=== PATIENT | male | born 1945 | race Caucasian/White ===

== ENCOUNTER → 2024-09-20 | Outpatient (CLI) | payer MEDICARE, OTHER, SELFPAY ==
[2024-09-20 14:32] LABS: Basophils # (Auto) 0.1 Thou/mm3 (0.0-0.2); Basophils % (Auto) 1 % (0-2.5); Eosinophils # (Auto) 0.7 Thou/mm3 (0.0-0.5); Eosinophils % (Auto) 7 % (0-10); Hematocrit 41.3 % (41.0-53.0); Hemoglobin 13.9 g/dL (13.5-16.0); Immature Granulocytes % (Auto) 3 % (0-0); Immature Granulocytes Auto 0.25 Thou/mm3 (0.00-0.00); Lymphocytes # (Auto) 1.4 Thou/mm3 (1.0-4.8); Lymphocytes % (Auto) 15 % (10-50); Mean Corpuscular HGB Conc 33.7 g/dl (31.0-37.0); Mean Corpuscular Hemoglobin 31.7 pg (25.0-35.0); Mean Corpuscular Volume 94 fL (80-100); Monocytes # (Auto) 1.6 Thou/mm3 (0.0-0.8); Monocytes % (Auto) 17 % (0-12); Neutrophils # (Auto) 5.5 Thou/mm3 (1.8-7.7); Neutrophils % (Auto) 58 % (37-80); Nucleated Red Blood Cell % 0 /100 WBC (0); Platelet Count 139 Thou/mm3 (140-440); Red Blood Count 4.39 Miln/mm3 (4.50-5.90); White Blood Count 9.5 Thou/mm3 (3.8-10.6)
[2024-09-20 14:40] LABS: B-Type Natriuretic Peptide 450 pg/mL (0-100)
[2024-09-20 15:09] LABS: Alanine Aminotransferase < 7 U/L (10-49); Albumin, Serum 4.1 gm/dL (3.4-4.8); Alkaline Phosphatase 78 U/L (46-116); Anion Gap 9 (7-16); Aspartate Amino Transferase 13 U/L (0-34); BUN/Creatinine Ratio 14 Ratio (12-20); Blood Urea Nitrogen 14 mg/dL (9-23); Calcium 9.2 mg/dL (8.3-10.6); Calcium (Corrected) 9.2 mg/dL (8.5-10.1); Carbon Dioxide 30.9 mMol/L (20.0-31.0); Chloride 104 mMol/L (98-107); Globulin 2.1 gm/dL (2.3-3.5); Glucose 127 mg/dL (74-106); Osmolality,Calculated 289 (275-295); Potassium 4.5 mMol/L (3.4-5.1); Sodium 144 mMol/L (136-145); Total Protein 6.2 gm/dL (5.7-8.2); eGFR > 60 See Note
[2024-09-26 19:48] LABS: PSA, Free 0.79 ng/mL; PSA, Total 2.3 ng/mL (< OR = 4.0)
== END | disposition home or self-care (01) ==
PROVIDERS: PCP Physician Assistant; Referring Provider Physician Assistant; Visit Provider Physician Assistant
DX: I10 Essential (primary) hypertension (principal); N40.0 Benign prostatic hyperplasia without lower urinary tract symptoms
CPT/HCPCS: 36415; 80053; 83880; 84153; 84154; 85025

== ENCOUNTER 2024-12-04 11:44 | Inpatient (IN) | payer MEDICARE, OTHER, SELFPAY ==
[2024-12-04] VITALS (16 sets, daily range): BP systolic 144–192; BP diastolic 94–138; PULSE 87–110; RESP 16–27; TEMP 36.4–36.5; O2SAT 95–100; BMI 36.9
--- NOTE | 2024-12-04 12:04 | XR_ITS ---
Examination: AP chest single view Technique one AP portable upright chest single view Exam date and time: December 04, 2024 1349 hours Comparison March 01, 2024 INDICATIONS: Chest pain shortness of breath beginning 2 days ago. FINDINGS: Suspicious for mild heart failure Mild enlargement cardiac contour Prominent vascular congestion with early septal edema at the lung bases Moderate osteopenia IMPRESSION: Mild heart failure pattern, early pneumonia at the lung bases not excluded, clinical correlation advised
--- NOTE | 2024-12-04 12:04 | EKG_ITS ---
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1945 Requested By: Campbell Motley Order Number: [id number] Reading MD: Campbell Motley Measurements Intervals [place] Rate: 84 P: RI: QRS: -69 QRSD: 132 T: 71 QT: 371 QTc: 441 Interpretive Statements ATRIAL FIBRILLATION LEFT AXIS DEVIATION [QRS AXIS < -30] INTRAVENTRICULAR CONDUCTION DELAY [130+ ms QRS DURATION] POSSIBLE ANTERIOR MYOCARDIAL INFARCTION , OF INDETERMINATE AGE [30 ms Q WAVE IN V3/V4, OR R < 0.2 mV IN V4] Compared to ECG 03/01/2024 15:56:42 Intraventricular conduction delay now present Myocardial infarct finding now present Ventricular premature complex(es) no longer present Aberrant conduction of supraventricular beat(s) no longer present Left bundle-branch block no longer present /store/S0/[id number]
--- NOTE | 2024-12-04 12:05 | PD.EDSOB ---
ED SOB =RME/HPI General Chief Complaint: Shortness of Breath/Dyspnea Stated Complaint: SOB Time Seen by Provider: 12/04/24 11:57 Arrival date/time: 12/04/24 11:44 RME / HPI RME / HPI Narrative: 79-year-old male patient with significant history of COPD, hypertension, was brought in by EMS for evaluation regarding shortness of breath. Patient has been having flulike symptoms for the last 5 days, today patient noticed worsening shortness of breath, and not feeling well. When the EMS arrived patient was already on oxygen placed by fire department. Was satting in the low 90s. Patient denies any fever denies any chest pain denies any other complaints patient told me that he runs out of his 2 inhalers today. Related Data Home Medications ?Medication ?Instructions ?Recorded ?Confirmed amlodipine 5 mg-benazepril 10 mg 10 mg PO QDAY 05/19/19 12/04/24 capsule metoprolol tartrate 100 mg tablet 100 mg PO BID 05/19/19 12/04/24 lisinopril 20 mg tablet 20 mg PO QDAY 03/01/24 12/04/24 budesonide 160 mcg-glycopyr 9 2 inh inhalation BID 12/04/24 12/04/24 mcg-formot 4.8 mcg/actuation HFA inhaler (Breztri Aerosphere) Previous Rx's ?Medication ?Instructions ?Recorded prednisone 50 mg tablet 50 mg PO QDAY #5 tabs 03/01/24 Allergies Allergy/AdvReac Type Severity Reaction Status Date / Time No Known Allergies Allergy Verified 03/01/24 16:00 Course Quality Measures none Orders Category Date Time Status COVID-19 Screening Questionnaire NOW Care 12/04/24 14:22 Active Decision to Admit X1 Care 12/04/24 14:21 Active EKG (ED ONLY) *Do not use* NOW Care 12/04/24 12:04 Completed EKG (ED Only) Stat Exams 12/04/24 12:04 Draft US gall bladder Stat Exams 12/04/24 13:09 Ordered XR chest 1V Stat Exams 12/04/24 12:04 Completed ABG [Arterial Blood Gas] Stat Lab 12/04/24 13:57 Completed B-Type Natriuretic Peptide Stat Lab 12/04/24 12:18 Completed Bilirubin,Direct Stat Lab 12/04/24 12:18 Completed C-Reactive Protein Stat Lab 12/04/24 12:18 Completed CBC Stat Lab 12/04/24 12:18 Completed Comprehensive Metabolic Panel Stat Lab 12/04/24 12:18 Completed Lactate (Lactic Acid) Stat Lab 12/04/24 12:18 Completed Partial Thromboplastin Time Stat Lab 12/04/24 12:18 Completed Procalcitonin Stat Lab 12/04/24 12:18 Completed Prothrombin Time with INR Stat Lab 12/04/24 12:18 Completed Troponin I Stat Lab 12/04/24 12:18 Completed VBG [Venous Blood Gas] Stat Lab 12/04/24 12:18 Completed ALBUTEROL RT 0.5ml [Proventil Rt 0.5ml] Med 12/04/24 13:19 Discontinued 2.5 mg INH X1 ONE ALBUTEROL RT 0.5ml [Proventil Rt 0.5ml] Med 12/04/24 13:22 Discontinued 5 mg INH X1 ONE Albuterol/Ipratr Rt Viridiana [Duoneb Rt Viridiana] Med 12/04/24 12:04 Discontinued 3 ml INH X1 ONE Azithromycin Inj [Zithromax Inj] 500 mg Med 12/04/24 14:14 Discontinued Sodium Chloride 0.9% 250 ml [Ns] 250 ml IV X1 Dexamethasone Inj [Decadron Inj] Med 12/04/24 12:04 Discontinued 10 mg IV X1 ONE Furosemide Inj [Lasix Inj] Med 12/04/24 13:37 Discontinued 40 mg IVP X1 ONE Labetalol IV [Trandate IV] Med 12/04/24 12:05 Discontinued 10 mg IVP X1 ONE MethylPREDNISolone.* [SoluMEDROL Inj] Med 12/04/24 13:34 Discontinued 125 mg IVP X1 ONE Sodium Chloride Rt Viridiana 0.9% [NS Rt Viridiana 0.9%] Med 12/04/24 13:19 Active 3 ml INH PRN PRN Sodium Chloride Rt Viridiana 0.9% [NS Rt Viridiana 0.9%] Med 12/04/24 13:22 Active 3 ml INH PRN PRN Terbutaline Sulf Inj [Brethine Inj] Med 12/04/24 13:33 Discontinued 0.25 mg SC X1 ONE cefTRIAXone/D5w 1gm IV premix [Rocephin/D5w 1gm IV Med 12/04/24 14:13 Discontinued premix] 1 gm in 50 ml IV X1 hydrALAZINE INJ [Apresoline Inj] Med 12/04/24 14:06 Discontinued 10 mg IV X1 ONE Vital Signs Vital signs: Vital Signs Temperature 97.5 F 12/04/24 12:02 Pulse Rate 92 12/04/24 12:02 Respiratory Rate 20 12/04/24 12:02 Blood Pressure 192/128 H 12/04/24 12:02 Pulse Oximetry (%) 99 12/04/24 12:02 Oxygen Delivery Method Nasal Cannula 12/04/24 12:02 Oxygen Flow Rate 6 12/04/24 12:02 Shortness of Breath / Dyspnea MDM Narrative MDM Narrative:: 79-year-old male patient with significant history of COPD, hypertension, was brought in by EMS for evaluation regarding shortness of breath. Patient has been having flulike symptoms for the last 5 days, today patient noticed worsening shortness of breath, and not feeling well. When the EMS arrived patient was already on oxygen placed by fire department. Was satting in the low 90s. Patient denies any fever denies any chest pain denies any other complaints patient told me that he runs out of his 2 inhalers today. Patient significant leukocytosis 21.7. ABG came back with PCO2 of 54, PO2 187. Total bili of 1.5 C-reactive protein 1 BNP of 1464 chest x-ray showed Mild heart failure pattern, early pneumonia at the lung bases not excluded, clinical correlation advised Patient was placed on BiPAP since patient is becoming restless, and complaining of cannot breathe. Currently patient is on a BiPAP and satting 95% Patient data External records reviewed:: None Clinical information provided by:: patient and law enforcement Social determinants that could affect healthcare access:: none Patient has the following chronic illnesses:: none How is presenting disease/condition affected by chronic disease/condition?: uneffected by Evaluation data The following diagnostics were reviewed and interpreted by me:: lab results, radiology exam(s) and EKG tracing(s) Lab and/or radiology exams considered but not ordered:: None Interpretation Summary: EKG as interpreted by me showed atrial fibrillation, ventricular rate of 84 bpm, no ST segment elevation depression noted. Medications / Prescriptions Medications or Prescriptions considered but not ordered:: None Medication administrations:: Medication Administration History Acetaminophen (Acetaminophen 325 Mg Tablet) 650 mg PO Q6H PRN PRN Reason: Fever >100.4 or pain 1-3 Stop: 01/03/25 15:02 Albuterol/Ipratropium (Albuterol/Ipratropium (Duoneb) Rt Viridiana 3 Ml Nebu) 3 ml INH Q2HR PRN PRN Reason: SHORTNESS OF BREATH OR WHEEZE Stop: 01/03/25 15:08 Amlodipine Besylate (Amlodipine Besylate 5 Mg Tablet) 5 mg PO QDAY YESSI Stop: 01/04/25 08:59 Docusate Sodium (Docusate Sod 100 Mg Capsule) 100 mg PO QDAY PRN; Protocol PRN Reason: CONSTIPATION Stop: 01/03/25 15:02 Enoxaparin Sodium (Enoxaparin Sod Inj 40 Mg/0.4 Ml Syringe) 40 mg SC QDAY YESSI Stop: 12/19/24 08:59 Furosemide (Furosemide Inj 10 Mg/Ml 4ml Vial) 40 mg IVP QDAY YESSI Stop: 01/04/25 08:59 Ceftriaxone Sodium 2 gm/ (Sodium Chloride) 50 mls @ 100 mls/hr IV Q24H YESSI Stop: 12/12/24 15:59 Ceftriaxone Sodium/Dextrose (Rocephin/D5w 1gm Iv Premix) 1 gm in 50 mls @ 100 mls/hr IV NOW ONE Stop: 12/04/24 16:14 Lisinopril (Lisinopril 20 Mg Tablet) 10 mg PO QDAY YESSI Stop: 01/04/25 08:59 Metoprolol Tartrate (Metoprolol Tartrate 25 Mg Tablet) 100 mg PO BID YESSI Stop: 01/03/25 20:59 Ondansetron HCl (Ondansetron Inj 2 Mg/Ml Inj 2 Ml) 4 mg IV Q6H PRN; Protocol PRN Reason: NAUSEA OR VOMITING Stop: 01/03/25 15:02 Sennosides (Senna Tablet) 1 tab PO QDAY PRN; Protocol PRN Reason: constipation Stop: 01/03/25 15:02 Sodium Chloride (Sodium Chloride Rt Viridiana 0.9% 3 Ml Nebu) 3 ml INH PRN PRN PRN Reason: SOLN Stop: 01/03/25 13:18 Last Admin: 12/04/24 13:24 Dose: 3 ml Documented By: JANICE Sodium Chloride (Sodium Chloride Rt Viridiana 0.9% 3 Ml Nebu) 3 ml INH PRN PRN PRN Reason: SOLN Stop: 01/03/25 13:21 Discontinued Medications Albuterol (Albuterol Rt 2.5 Mg/0.5 Ml Nebu) 2.5 mg INH X1 ONE Stop: 12/04/24 13:20 Last Admin: 12/04/24 13:24 Dose: 2.5 mg Documented By: JANICE Albuterol (Albuterol Rt 2.5 Mg/0.5 Ml Nebu) 5 mg INH X1 ONE Stop: 12/04/24 13:23 Last Admin: 12/04/24 13:25 Dose: 5 mg Documented By: JANICE Albuterol/Ipratropium (Albuterol/Ipratropium (Duoneb) Rt Viridiana 3 Ml Nebu) 3 ml INH X1 ONE Stop: 12/04/24 12:05 Last Admin: 12/04/24 13:13 Dose: 3 ml Documented By: JANICE Dexamethasone Sodium Phosphate (Dexamethasone Sod Phos Inj 10 Mg/Ml Vial) 10 mg IV X1 ONE Stop: 12/04/24 12:05 Last Admin: 12/04/24 13:15 Dose: 10 mg Documented By: ROSITA Furosemide (Furosemide Inj 10 Mg/Ml 4ml Vial) 40 mg IVP X1 ONE Stop: 12/04/24 13:38 Last Admin: 12/04/24 14:02 Dose: 40 mg Documented By: GM Hydralazine HCl (Hydralazine Inj 20 Mg/Ml Vial) 10 mg IV X1 ONE Stop: 12/04/24 14:07 Last Admin: 12/04/24 14:51 Dose: 10 mg Documented By: COOKIE Ceftriaxone Sodium/Dextrose (Rocephin/D5w 1gm Iv Premix) 1 gm in 50 mls @ 100 mls/hr IV X1 ONE Stop: 12/04/24 14:42 Last Admin: 12/04/24 14:56 Dose: 100 mls/hr Documented By: COOKIE Azithromycin 500 mg/ Sodium (Chloride) 250 mls @ 250 mls/hr IV X1 ONE Stop: 12/04/24 15:13 Labetalol HCl (Labetalol Inj 5 Mg/Ml Vial 20 Ml) 10 mg IVP X1 ONE Stop: 12/04/24 12:06 Last Admin: 12/04/24 13:16 Dose: 10 mg Documented By: ROSITA Methylprednisolone Sodium Succinate (Methylprednisolone Sod Succ 62.5 Mg/Ml 2ml Vial) 125 mg IVP X1 ONE Stop: 12/04/24 13:35 Last Admin: 12/04/24 14:04 Dose: 125 mg Documented By: Non-Formulary Medication (Amlodipine-Benazepril) 10 mg PO QDAY YESSI Stop: 01/04/25 08:59 Terbutaline Sulfate (Terbutaline Sulf Inj 1 Mg/Ml Vial) 0.25 mg SC X1 ONE Stop: 12/04/24 13:34 Last Admin: 12/04/24 14:05 Dose: 0.25 mg Documented By: Solu-Medrol, terbutaline, DuoNeb breathing treatment, hour-long albuterol also. Patient was also given ceftriaxone IV and Zithromax IV Consultations Consultation(s) initiated? (list below): No Diagnosis Shortness of Breath Differential Diagnosis: acute exacerbation of chronic obstructive airways disease and community acquired pneumonia Most likely diagnosis given after review of the tests above:: Acute exacerbation of COPD, pneumonia Admission Indicated Admission indicated?: not indicated Admission Request Was there a request for admission?: Yes Admission Attestation Admission request attestation: Discussed case with [Dr. Goodman] from Hospitalist service regarding admission. Discussed patients ED course, exam findings, labs, and radiology results. The Hospitalist [agrees] to accept the patient for admission. Disposition Plan Disposition Plan: Admit Discharge Plan Plan Patient Disposition: Admit Acute Care w/in Hospital Disposition Comment: Stable Problem List Clinical Impression: Acute exacerbation of chronic obstructive airways disease, Pneumonia
[2024-12-04 12:22] LABS: Base Excess, Venous 9 (-3-3); Lactate (Lactic Acid) 1.7 mMol/L (0.4-2.0); O2 Saturation, Venous 98 % (96-97); PCO2, Venous 26 mmHg (36-56); PO2, Venous 79 mmHg (15-58); pH, Venous 7.65 (7.33-7.66)
[2024-12-04 12:30] LABS: Basophils # (Auto) 0.1 Thou/mm3 (0.0-0.2); Basophils % (Auto) 1 % (0-2.5); Eosinophils # (Auto) 0.3 Thou/mm3 (0.0-0.5); Eosinophils % (Auto) 1 % (0-10); Hematocrit 47.9 % (41.0-53.0); Hemoglobin 15.6 g/dL (13.5-16.0); Immature Granulocytes % (Auto) 4 % (0-0); Immature Granulocytes Auto 0.78 Thou/mm3 (0.00-0.00); Lymphocytes # (Auto) 2.2 Thou/mm3 (1.0-4.8); Lymphocytes % (Auto) 10 % (10-50); Mean Corpuscular HGB Conc 32.6 g/dl (31.0-37.0); Mean Corpuscular Volume 98 fL (80-100); Monocytes # (Auto) 2.5 Thou/mm3 (0.0-0.8); Monocytes % (Auto) 11 % (0-12); Neutrophils # (Auto) 15.9 Thou/mm3 (1.8-7.7); Neutrophils % (Auto) 73 % (37-80); Nucleated Red Blood Cell % 0 /100 WBC (0); Platelet Count 223 Thou/mm3 (140-440); RDW Standard Deviation 53.8 fL (35.1-43.9); Red Blood Count 4.88 Miln/mm3 (4.50-5.90); White Blood Count 21.7 Thou/mm3 (3.8-10.6)
[2024-12-04 12:38] LABS: INR 1.2 (0.9-1.3); Partial Thromboplastin Time 28.4 Seconds (22.0-36.0); Prothrombin Time 12.9 Seconds (9.0-12.2)
[2024-12-04 12:51] LABS: Alanine Aminotransferase 41 U/L (10-49); Albumin, Serum 4.1 gm/dL (3.4-4.8); Albumin/Globulin Ratio 1.8 (1.2-2.2); Alkaline Phosphatase 57 U/L (46-116); Anion Gap 9 (7-16); Aspartate Amino Transferase 30 U/L (0-34); BUN/Creatinine Ratio 19 Ratio (12-20); Bilirubin,Total 1.5 mg/dL (0.3-1.2); Blood Urea Nitrogen 19 mg/dL (9-23); Calcium 9.1 mg/dL (8.3-10.6); Calcium (Corrected) 9.1 mg/dL (8.5-10.1); Carbon Dioxide 30.8 mMol/L (20.0-31.0); Chloride 103 mMol/L (98-107); Globulin 2.3 gm/dL (2.3-3.5); Glucose 122 mg/dL (74-106); Osmolality,Calculated 288 (275-295); Potassium 3.6 mMol/L (3.4-5.1); Sodium 143 mMol/L (136-145); Total Protein 6.4 gm/dL (5.7-8.2); Troponin I 0.031 ng/mL (0.0-0.045); eGFR > 60 See Note
--- NOTE | 2024-12-04 13:09 | XR_ITS ---
Examination: Abdomen sonogram, Limited Date and time of exam: December 04, 2024 1627 hours INDICATIONS: Elevated liver function tests on laboratory examination today Technique: Real-time foley scale transabdominal sonographic images of the upper abdomen obtained. Findings: Normal gallbladder No common bile duct 0.36 cm Pancreas obscured by bowel gas Liver 19.4 cm fatty infiltration no focal liver lesions Normal hepatopedal portal venous flow Date and IVC IMPRESSION: Normal gallbladder Moderate hepatomegaly fatty liver
[2024-12-04] MEDS: ALBUTEROL/IPRATROPIUM (Duoneb) RT SOL 3 ML NEBU INH (13:13)
[2024-12-04] MEDS: DEXAMETHASONE SOD PHOS INJ 10 MG/ML VIAL IV (13:15)
[2024-12-04] MEDS: LABETALOL INJ 5 MG/ML VIAL 20 ML 10 MG IVP (13:16)
[2024-12-04] MEDS: ALBUTEROL RT 2.5 MG/0.5 ML NEBU INH (13:24)
[2024-12-04] MEDS: SODIUM CHLORIDE RT SOL 0.9% 3 ML NEBU INH (13:24)
[2024-12-04] MEDS: ALBUTEROL RT 2.5 MG/0.5 ML NEBU 5 MG INH (13:25)
[2024-12-04 13:32] LABS: B-Type Natriuretic Peptide 1464 pg/mL (0-100)
[2024-12-04 13:47] LABS: Bilirubin,Direct 0.3 mg/dL (0.0-0.3)
[2024-12-04] MEDS: FUROSEMIDE INJ 10 MG/ML 4ML VIAL 40 MG IVP ×2 (14:02→21:00)
[2024-12-04 14:03] LABS: Base Excess 5 (-3-3); HCO3 32 mEq/L (20-26); Inspired Oxygen, FIO2 50 %; O2 Saturation 100 % (91-98); PCO2 54 mmHg (32.0-48.0); PO2 187 mmHg (83-108); pH, Arterial 7.38 (7.35-7.45)
[2024-12-04 14:04] LABS: Allen Test Not Performed; Puncture Site Right Radial
[2024-12-04] MEDS: MethylPREDNISolone SOD SUCC 62.5 MG/ML 2ML VIAL 125 MG IVP (14:04)
[2024-12-04] MEDS: TERBUTALINE SULF INJ 1 MG/ML VIAL 0.25 MG SC (14:05)
[2024-12-04] MEDS: hydrALAZINE INJ 20 MG/ML VIAL 10 MG IV (14:51)
[2024-12-04] MEDS: cefTRIAXone/D5w 1gm IV premix 1 GM/50 ML BAG IV (14:56)
--- NOTE | 2024-12-04 15:18 | PD.RESHP ---
Documentation for date of: 12/04/24 HPI History of Present Illness Chief complaint: Shortness of breath History of present illness: 79/o M with PMHx significant for COPD, hypertension, A-fib presents with chief complaint of progressive shortness of breath. Patient states for the past 3 days he has been having worsening shortness of breath at home. He also complains of orthopnea, dyspnea on minimal exertion. Patient denies cough or sputum production. Patient noted to have significant edema on exam. Patient states he received cardiac workup by Dr. Dc 1 month ago including nuclear perfusion stress test and echocardiogram, which did not reveal any pathology. Denies fevers, chills, chest pain, palpitations, nausea, vomiting. ED COURSE: Labs significant for: WBC 21.7, BNP 1464, above patient's baseline. ABG showing pH 7.3, pCO2 54. Pro-Shawn negative. Imaging significant for: Chest x-ray showing vascular congestion, possible early pneumonia. Patient received 10 mg dexamethasone, 125 mg methylprednisolone, albuterol, Lasix, terbutaline sulfate, and labetalol in the ED. Patient placed on BiPAP in the ED due to respiratory distress. PMH: Hypertension, COPD, A-fib PSH: Tendon repair of right arm, rotator cuff repair of left arm SH: Denies alcohol, tobacco, illicit drug use. Allergies:?NKDA Medications: Amlodipine?benazepril, Breztri, lisinopril, metoprolol tartrate, Lasix Review of Systems Review of Systems Systems Reviewed: All systems reviewed, normal except as documented Past Medical History Past Medical History Comments PMH COMMENT: PMH: Hypertension, COPD, A-fib PSH: Tendon repair of right arm, rotator cuff repair of left arm SH: Denies alcohol, tobacco, illicit drug use. Allergies:?NKDA Medications: Amlodipine?benazepril, Breztri, lisinopril, metoprolol tartrate, Lasix Exam Vital Signs Temp Pulse Resp BP Pulse Ox O2 Del Method O2 Flow Rate 97.5 F 99 23 H 192/114 H 100 Nasal Cannula 4 12/04/24 12:02 12/04/24 14:51 12/04/24 13:15 12/04/24 14:51 12/04/24 13:15 12/04/24 12:02 12/04/24 13:15 FiO2 60 12/04/24 13:15 Narrative Exam PE: Gen: Well-developed and well-nourished. Obese. HEENT: NCAT, PERRLA, EOMI, MMM, anicteric conjunctivae. CVS: normal S1 and S2. RRR. No M/R/G. Resp: Minimal expiratory wheezing. Poor lung sounds due to body habitus. Abd: soft, non-tender, non-distended. MSK: Good ROM in BUE & BLE. No rash. Patient reports frequent falls, diffuse bruising. 2+ pitting edema up to sacrum. Neuro: CN II-XII grossly intact. Strength 5/5 in BUE & BLE. Alert and oriented x3. Psych: appropriate mood and affect. Results: Labs 12/05/24 05:05 12/05/24 05:05 Labs: Short CBC 12/04/24 Range/Units 12:18 WBC 21.7 H (3.8-10.6) Thou/mm3 Hgb 15.6 (13.5-16.0) g/dL Hct 47.9 (41.0-53.0) % Plt Count 223 (140-440) Thou/mm3 BMP 12/04/24 12:18 Sodium 143 Potassium 3.6 Chloride 103 Carbon Dioxide 30.8 BUN 19 Creatinine 1.0 Glucose 122 H Calcium 9.1 Cardiac Enzymes 12/04/24 Range/Units 12:18 Troponin I 0.031 (0.0-0.045) ng/mL Liver Function 12/04/24 Range/Units 12:18 Total Bilirubin 1.5 H (0.3-1.2) mg/dL Direct Bilirubin 0.3 (0.0-0.3) mg/dL AST 30 (0-34) U/L ALT 41 (10-49) U/L Alkaline Phosphatase 57 (46-116) U/L Albumin 4.1 (3.4-4.8) gm/dL ABG Interpretation ABG results: 12/04/24 12/04/24 12:18 13:57 ABG pH 7.38 ABG pCO2 54 H ABG pO2 187 H ABG HCO3 32 H ABG O2 Saturation 100 H ABG Base Excess 5 H VBG pH 7.65 VBG pCO2 26 L VBG pO2 79 H VBG Base Excess 9 H Quality Measures Quality Measures VTE prophylaxis Advance care planning discussed with:: patient and spouse Medications Home Medications and Allergies Home Medications ?Medication ?Instructions ?Recorded ?Confirmed ?Type amlodipine 5 mg-benazepril 10 mg 10 mg PO QDAY 05/19/19 12/04/24 History capsule metoprolol tartrate 100 mg tablet 100 mg PO BID 05/19/19 12/04/24 History lisinopril 20 mg tablet 20 mg PO QDAY 03/01/24 12/04/24 History budesonide 160 mcg-glycopyr 9 2 inh inhalation BID 12/04/24 12/04/24 History mcg-formot 4.8 mcg/actuation HFA inhaler ([employer] Profilesztri [employer]oop[employer]) Allergies Allergy/AdvReac Type Severity Reaction Status Date / Time No Known Allergies Allergy Verified 03/01/24 16:00 Visit Medications Acetaminophen (Acetaminophen 325 Mg Tablet) 650 mg PO Q6H PRN PRN Reason: Fever >100.4 or pain 1-3 Stop: 01/03/25 15:02 Albuterol/Ipratropium (Albuterol/Ipratropium (Duoneb) Rt Viridiana 3 Ml Nebu) 3 ml INH Q2HR PRN PRN Reason: SHORTNESS OF BREATH OR WHEEZE Stop: 01/03/25 15:08 Docusate Sodium (Docusate Sod 100 Mg Capsule) 100 mg PO QDAY PRN; Protocol PRN Reason: CONSTIPATION Stop: 01/03/25 15:02 Enoxaparin Sodium (Enoxaparin Sod Inj 40 Mg/0.4 Ml Syringe) 40 mg SC QDAY [facility] Stop: 12/19/24 08:59 Furosemide (Furosemide Inj 10 Mg/Ml 4ml Vial) 40 mg IVP QDAY [facility] Stop: 01/04/25 08:59 Ceftriaxone Sodium 2 gm/ (Sodium Chloride) 50 mls @ 100 mls/hr IV QDAY [facility] Stop: 12/11/24 15:13 Metoprolol Tartrate (Metoprolol Tartrate 25 Mg Tablet) 100 mg PO BID [facility] Stop: 01/03/25 20:59 Non-Formulary Medication (Amlodipine-Benazepril) 10 mg PO QDAY [facility] Stop: 01/04/25 08:59 Ondansetron HCl (Ondansetron Inj 2 Mg/Ml Inj 2 Ml) 4 mg IV Q6H PRN; Protocol PRN Reason: NAUSEA OR VOMITING Stop: 01/03/25 15:02 Sennosides (Senna Tablet) 1 tab PO QDAY PRN; Protocol PRN Reason: constipation Stop: 01/03/25 15:02 Sodium Chloride (Sodium Chloride Rt Viridiana 0.9% 3 Ml Nebu) 3 ml INH PRN PRN PRN Reason: SOLN Stop: 01/03/25 13:18 Last Admin: 12/04/24 13:24 Dose: 3 ml Sodium Chloride (Sodium Chloride Rt Viridiana 0.9% 3 Ml Nebu) 3 ml INH PRN PRN PRN Reason: SOLN Stop: 01/03/25 13:21 Discontinued Medications Albuterol (Albuterol Rt 2.5 Mg/0.5 Ml Nebu) 2.5 mg INH X1 ONE Stop: 12/04/24 13:20 Last Admin: 12/04/24 13:24 Dose: 2.5 mg Albuterol (Albuterol Rt 2.5 Mg/0.5 Ml Nebu) 5 mg INH X1 ONE Stop: 12/04/24 13:23 Last Admin: 12/04/24 13:25 Dose: 5 mg Albuterol/Ipratropium (Albuterol/Ipratropium (Duoneb) Rt Viridiana 3 Ml Nebu) 3 ml INH X1 ONE Stop: 12/04/24 12:05 Last Admin: 12/04/24 13:13 Dose: 3 ml Dexamethasone Sodium Phosphate (Dexamethasone Sod Phos Inj 10 Mg/Ml Vial) 10 mg IV X1 ONE Stop: 12/04/24 12:05 Last Admin: 12/04/24 13:15 Dose: 10 mg Furosemide (Furosemide Inj 10 Mg/Ml 4ml Vial) 40 mg IVP X1 ONE Stop: 12/04/24 13:38 Last Admin: 12/04/24 14:02 Dose: 40 mg Hydralazine HCl (Hydralazine Inj 20 Mg/Ml Vial) 10 mg IV X1 ONE Stop: 12/04/24 14:07 Last Admin: 12/04/24 14:51 Dose: 10 mg Ceftriaxone Sodium/Dextrose (Rocephin/D5w 1gm Iv Premix) 1 gm in 50 mls @ 100 mls/hr IV X1 ONE Stop: 12/04/24 14:42 Last Admin: 12/04/24 14:56 Dose: 100 mls/hr Azithromycin 500 mg/ Sodium (Chloride) 250 mls @ 250 mls/hr IV X1 ONE Stop: 12/04/24 15:13 Labetalol HCl (Labetalol Inj 5 Mg/Ml Vial 20 Ml) 10 mg IVP X1 ONE Stop: 12/04/24 12:06 Last Admin: 12/04/24 13:16 Dose: 10 mg Methylprednisolone Sodium Succinate (Methylprednisolone Sod Succ 62.5 Mg/Ml 2ml Vial) 125 mg IVP X1 ONE Stop: 12/04/24 13:35 Last Admin: 12/04/24 14:04 Dose: 125 mg Terbutaline Sulfate (Terbutaline Sulf Inj 1 Mg/Ml Vial) 0.25 mg SC X1 ONE Stop: 12/04/24 13:34 Last Admin: 12/04/24 14:05 Dose: 0.25 mg Assessment & Plan Plan 79/o M with PMHx significant for COPD, hypertension, A-fib presents with chief complaint of progressive shortness of breath, admitted for congestive heart failure. #New onset CHF Patient has no known history of CHF. Patient reports echo and stress test with immigration specialist Dr. Dc a month ago, both of which were normal. However exam, patient has significant pitting edema up to sacrum. Patient complains of orthopnea, dyspnea on minimal exertion, and PND. Requires 3 pillows at night to sleep. Patient has elevated BNP 1464. Chest x-ray showing vascular congestion. - Cardiology consulted, appreciate recommendations - Lasix 40 mg IV twice daily - Strict ins and outs with Turner cath, daily weights, fluid restrict 1800 cc - Turner cath #COPD #Early pneumonia Patient has history of COPD. Chest x-ray showed signs of vascular congestion along with possible early pneumonia. Patient denies increased cough or sputum production. Patient not use oxygen at home. Minimal expiratory wheezes on exam. Pro-Shawn negative, patient had elevated WBC 21.7. ABG did not show significant CO2 retention, pH normal. - DuoNebs as needed - BiPAP as needed - Ceftriaxone 2 g IV daily (started 12/04) - Azithromycin 250 mg IV daily (started 12/04) #HTN #A-fib Patient history as stated. Patient's not using rate or rhythm control medication, using Eliquis. - Resume home Eliquis, amlodipine?benazepril - Consider resuming other meds as appropriate DVT prophylaxis: Eliquis GI prophylaxis: None Diet: Cardiac, positional changes CC Lines: PIV, Turner cath Code status: Full code Plan of care discussed with attending Dr. Mcmillan. Godfrey Cohn MD PGY?1 Attending Provider Attestation/Addendum Barbi Nelson DO, attest that I was physically present for the faustin portions of the service and evaluated the patient with the resident and I reviewed and discussed the case with the resident and agree with the resident's findings and plans of care as documented above Patient is a 79-year-old male with past medical history of COPD, hypertension, A-fib on chronic anticoagulation, peripheral neuropathy chronic back pain on Percocet every 6 hours at home who was brought to the ED due to worsening shortness of breath. is at bedside. She states that the patient has been progressively worse for the past 3 weeks with shortness of breath. He endorses having orthopnea and dyspnea on minimal exertion. Patient usually walks with a walker, but has been unable to do his daily activities for the past 3 days. Patient is noted to have some 1+ pitting bilateral lower extremity edema. He follows Dr. Decker outpatient and underwent a nuclear stress test last month which he reports being normal. Patient denies any recent sick contacts, fevers, chills, chest pain, palpitations, nausea, vomiting. It appears that patient wears a CPAP at night. He is noted to have a leukocytosis of 21.7 with elevated BNP of 1464. ABG shows a mild CO2 retention. However, mental status remains intact. Patient reports some generalized weakness. Chest x-ray on presentation shows mild heart failure pattern and suspicious for early pneumonia at the lung bases. Suspect acute chf exacerbation resulting in acute hypoxic respiratory failure. Patient remains on BiPap at this time. Will start on Lasix 40mg IV BID and consult cardiology for further recommendations. Will cover empirically for community acquired pneumonia
[2024-12-04] MEDS: AZITHROMYCIN INJ 250 MG in SODIUM CHLORIDE 0.9% 250 ML 250 ML IV (17:30)
[2024-12-04 18:31] LABS: Influenza A Ag Negative; Influenza B Ag Negative; Respiratory Syncytial Virus Ag Negative (Negative)
--- NOTE | 2024-12-04 19:10 | PC.NURSE ---
Patient refused to take blood pressure notified
--- NOTE | 2024-12-04 19:40 | PC.NURSE ---
per resident, its okay to give pt water. pt received 340 ml at bedside.
--- NOTE | 2024-12-04 19:44 | EKG_ITS ---
[facility] Test Date: 2024-12-04 Pat Name: SUSANA SCOTT Department: Room: [facility] Gender: Male Employee Communications Coordinator: : 1945 Requested By: Tala Tubbs Order Number: [id number] Reading MD: Tala Tubbs Measurements Intervals [place] Rate: 96 P: NC: QRS: -62 QRSD: 125 T: 56 QT: 387 QTc: 490 Interpretive Statements ATRIAL FIBRILLATION LEFT AXIS DEVIATION [QRS AXIS < -30] LEFT BUNDLE BRANCH BLOCK [120+ ms QRS DURATION, 80+ ms Q/S IN V1/V2, 85+ ms R IN I/aVL/V5/V6] Compared to ECG 12/04/2024 12:19:12 Left bundle-branch block now present Intraventricular conduction delay no longer present Myocardial infarct finding no longer present /store/S0/[id number]
--- NOTE | 2024-12-04 19:46 | EKG_ITS ---
[facility] Test Date: 2024-12-04 Pat Name: SUSANA SCOTT Department: Room: 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
[2024-12-04] MEDS: oxyCODONE/APAP 5/325 TABLET 2 TAB PO (20:33)
[2024-12-04] MEDS: APIXABAN 2.5 MG TABLET 5 MG PO (21:00)
[2024-12-04] MEDS: METOPROLOL TARTRATE 25 MG TABLET 100 MG PO (21:00)
--- NOTE | 2024-12-04 22:04 | PC.NURSE ---
Called Dr. Paredes about patients blood pressure 172/113 and 192/[address] prn meds.
[2024-12-04] MEDS: oxyCODONE/APAP 5/325 TABLET 1 TAB PO (23:51)
[2024-12-05] VITALS (20 sets, daily range): BP systolic 106–174; BP diastolic 79–110; PULSE 82–107; RESP 16–26; TEMP 35.9–36.3; O2SAT 96–99; BMI 38.2
--- NOTE | 2024-12-05 04:44 | PC.NURSE ---
DR. HOOPER MADE AWARE OF OF BP 159/106. PRN HYDRALAZINE FOR SBP >180. NO PARAMETERS FOR DBP. SCHEDULED BP MEDS RELAYED TO MD. NO NEW ORDERS GIVEN. STATES IF BP IS UNCONTROLLED AFTER MORNING MEDS, WILL NEED TO ADJUST DOSES.
[2024-12-05] MEDS: oxyCODONE/APAP 5/325 TABLET 1 TAB PO (06:01)
[2024-12-05 06:05] LABS: Basophils # (Auto) 0.1 Thou/mm3 (0.0-0.2); Basophils % (Auto) 1 % (0-2.5); Eosinophils % (Auto) 0 % (0-10); Hematocrit 48.8 % (41.0-53.0); Hemoglobin 16.3 g/dL (13.5-16.0); Immature Granulocytes % (Auto) 4 % (0-0); Immature Granulocytes Auto 0.45 Thou/mm3 (0.00-0.00); Lymphocytes % (Auto) 8 % (10-50); Mean Corpuscular HGB Conc 33.4 g/dl (31.0-37.0); Mean Corpuscular Hemoglobin 32.4 pg (25.0-35.0); Mean Corpuscular Volume 97 fL (80-100); Monocytes # (Auto) 0.9 Thou/mm3 (0.0-0.8); Monocytes % (Auto) 7 % (0-12); Neutrophils # (Auto) 10.2 Thou/mm3 (1.8-7.7); Neutrophils % (Auto) 81 % (37-80); Nucleated Red Blood Cell % 0 /100 WBC (0); Platelet Count 186 Thou/mm3 (140-440); RDW Standard Deviation 52.6 fL (35.1-43.9); Red Blood Count 5.03 Miln/mm3 (4.50-5.90); White Blood Count 12.6 Thou/mm3 (3.8-10.6)
[2024-12-05 06:42] LABS: Alanine Aminotransferase 34 U/L (10-49); Albumin, Serum 4.1 gm/dL (3.4-4.8); Albumin/Globulin Ratio 1.7 (1.2-2.2); Alkaline Phosphatase 53 U/L (46-116); Anion Gap 12 (7-16); Aspartate Amino Transferase 22 U/L (0-34); BUN/Creatinine Ratio 26 Ratio (12-20); Bilirubin,Total 1.4 mg/dL (0.3-1.2); Blood Urea Nitrogen 26 mg/dL (9-23); Calcium 9.2 mg/dL (8.3-10.6); Calcium (Corrected) 9.2 mg/dL (8.5-10.1); Carbon Dioxide 30.3 mMol/L (20.0-31.0); Chloride 96 mMol/L (98-107); Globulin 2.4 gm/dL (2.3-3.5); Glucose 133 mg/dL (74-106); Osmolality,Calculated 282 (275-295); Phosphorous 4.1 mg/dL (2.4-5.1); Potassium 3.5 mMol/L (3.4-5.1); Sodium 138 mMol/L (136-145); Total Protein 6.5 gm/dL (5.7-8.2); eGFR > 60 See Note
[2024-12-05] MEDS: amLODIPine BESYLATE 5 MG TABLET PO ×2 (08:30→17:47)
[2024-12-05] MEDS: FUROSEMIDE INJ 10 MG/ML 4ML VIAL 40 MG IVP ×2 (08:30→20:11)
[2024-12-05] MEDS: Lisinopril 20 MG TABLET 10 MG PO (08:31)
[2024-12-05] MEDS: APIXABAN 2.5 MG TABLET 5 MG PO ×2 (08:31→20:12)
[2024-12-05] MEDS: METOPROLOL TARTRATE 25 MG TABLET 100 MG PO ×2 (08:31→20:12)
[2024-12-05] MEDS: POTASSIUM CHLORIDE 20 mEq TABCR 40 MEQ PO (08:31)
--- NOTE | 2024-12-05 10:12 | ECHO_ITS ---
Transthoracic Echo Report Ht (in): 73 Wt (lb): 290 Exam Location: Portable Status: Inpatient Counter Person: FOREST Perez^^^^ Indications: Procedure Performed: BP: / HR: 80 Technical Quality: Technically difficult study MEASUREMENTS (Male / Female) Normal Values 2D ECHO LV Diastolic Diameter PLAX 5.8 cm 4.2 - 5.9 / 3.9 - 5.3 cm LV Systolic Diameter PLAX 4.0 cm IVS Diastolic Thickness 1.0 cm 0.6 - 1.0 / 0.6 - 0.9 cm LVPW Diastolic Thickness 1.1 cm 0.6 - 1.0 / 0.6 - 0.9 cm LV Relative Wall Thickness 0.4 LVOT Diameter 1.9 cm Aortic Root Diameter 4.1 cm LA Systolic Diameter LX 2.9 cm 3.0 - 4.0 / 2.7 - 3.8 cm LA Volume Index 40.8 cm?/m? 16 - 28 cm?/m? DOPPLER AV Peak Velocity 129.0 cm/s AV Peak Gradient 6.7 mmHg AV Mean Gradient 4.0 mmHg AV Velocity Time Integral 24.6 cm LVOT Peak Velocity 64.3 cm/s LVOT Peak Gradient 1.7 mmHg LVOT Velocity Time Integral 8.8 cm LVOT Cardiac Index 754.1 cm?/min?m? AV Area Cont Eq vti 1.0 cm? AV Area Cont Eq pk 1.4 cm? MV Area PHT 6.1 cm? Mitral E Point Velocity 80.8 cm/s Mitral A Point Velocity 34.9 cm/s Mitral E to A Ratio 2.3 LV E' Lateral Velocity 5.1 cm/s Mitral E to LV E' Lateral Ratio 15.8 LV E' Septal Velocity 5.3 cm/s Mitral E to LV E' Septal Ratio 15.4 TR Peak Velocity 328.0 cm/s TR Peak Gradient 43.0 mmHg FINDINGS Left Ventricle Normal left ventricular size, wall thickness, systolic function with no obvious regional wall motion abnormalities. There is grade II diastolic dysfunction of the left ventricle (pseudonormal filling pattern). The left ventricular ejection fraction is normal, estimated at 55-60%. Right Ventricle The right ventricle is normal in size and systolic function. The estimated right ventricular systolic pressure, 45 mmHg. Left Atrium Mildly increased left atrial volume 40.8 mL/m?. Right Atrium The right atrium is normal by two-dimensional imaging, color flow and Doppler imaging with no structural abnormalities, no thrombus formation present. Atrial Septum The interatrial septum appears normal with no evidence of a shunt. Aorta The aorta is normal by two-dimensional, color flow and Doppler interrogation. Mitral Valve Mild mitral regurgitation. Mild mitral annular calcification. Aortic Valve The aortic valve is trileaflet and normal by two-dimensional, color flow and Doppler interrogation. There is no significant aortic valve regurgitation. Tricuspid Valve There is mild tricuspid valve regurgitation. Pulmonic Valve The pulmonic valve is not well visualized. There is no significant pulmonic valve regurgitation. Vessels The pulmonary artery appears normal. The inferior vena cava pulmonary and hepatic veins appear normal. Pericardium The pericardium is normal by two-dimensional imaging. There is no significant pericardial effusion. CONCLUSIONS indication: CHF, AFIB, COPD Technically very difficult study LV& RV appear normal with EF 55-60%. Diastolic Dysfunction II. Mildly elevated RVSP 45 mmHg Midly Dilated LA Mild MR & MAC Mild TR Harry Dc (Electronically Signed) Final Date: 06 Dec 2024 11:14
--- NOTE | 2024-12-05 10:13 | PC.PT ---
Patient on Bipap and is not medically stable to do PT at this time. Will check patient again tomorrow.
[2024-12-05] MEDS: MORPHINE SULF INJ 10 MG/ML VIAL IVP (10:30)
[2024-12-05] MEDS: Lisinopril 20 MG TABLET 30 MG PO (10:31)
[2024-12-05 10:41] LABS: B-Type Natriuretic Peptide 907 pg/mL (0-100)
--- NOTE | 2024-12-05 11:24 | ESCONSULT_ITS ---
RE: SCOT SCOTT : 1945 DATE OF CONSULTATION: 12/05/2024 Consultation is asked by the hospitalist. HISTORY OF PRESENT ILLNESS: Mr. Scot Scott is a 79-year-old gentleman who is known to have a history of chronic obstructive pulmonary disease, history of chronic atrial fibrillation, history of chronic hypertension, history of bronchial asthma. The patient has been having symptoms of exertional dyspnea though the symptoms have been getting progressively worse especially in the last 3 days. At home, the patient also noted to have swelling of the feet. Because of the worsening of the symptoms, the patient was brought in over to the emergency room and was subsequently hospitalized. The patient denied any complaint of chest pain though, denied any complaint of skipped beats or palpitations. The patient has not been having any symptoms of fever or chills. PAST MEDICAL HISTORY: Significant for history of chronic hypertension since 1983, history of PTSD since 1959, history of neuropathy from exposure to [employer] [place] since 2018, history of bronchial asthma since 1993, and history of chronic atrial fibrillation since 2013. PERSONAL HISTORY: The patient is a nonsmoker, nonalcoholic, denies any history of drug abuse. PHYSICAL EXAMINATION: VITAL SIGNS: The patient's blood pressure is 159/93, pulse rate is 91 and irregularly irregular, respiratory rate is 18 per minute, temperature is 97.3, oximetry saturation is 99% on BiPAP at 30% FiO2. HEAD AND NECK: Unremarkable. JVP is elevated. Carotid pulsation are felt well on both sides. No carotid bruits heard. HEART: PMI is neither palpable nor visible. S1 and S2 is normal. The heart rhythm is irregularly irregular. No murmur or gallop is appreciated. LUNGS: Decreased breath sounds at the basis. No active rales or wheezes are heard. ABDOMEN: Soft. No organomegaly. EXTREMITIES: One plus pedal edema is noted. The peripheral pulses in the feet are palpable. DIAGNOSTIC DATA: The patient's electrocardiogram yesterday showed atrial fibrillation with moderate ventricular response, intraventricular conduction disturbance, and left axis deviation with possible anteroseptal myocardial infarction of undetermined age. LABORATORY DATA: WBC count yesterday was 21,700, hemoglobin 15.6 with a hematocrit of 47.9. This morning, WBC count is 12,600, hemoglobin 16.3 with hematocrit of 48.8. Arterial blood gas yesterday showed pH of 7.65, pO2 of 79. The patient's BUN yesterday was 19, creatinine 1.0, potassium level 3.6. Today, BUN is 26, creatinine 1.0, potassium level is 3.5. BNP level yesterday was 1464. The patient's chest x-ray done yesterday was reported to show mild heart failure and mild cardiac enlargement. CLINICAL IMPRESSION: 1. Chronic obstructive pulmonary disease with acute exacerbation. 2. Congestive heart failure. 3. Chronic atrial fibrillation. 4. Chronic hypertension. 5. Bronchial asthma as per history. SUGGESTIONS: I agree with present plan and management of the patient of continuing the patient on intravenous diuretic therapy, continuing the patient on beta-mariana therapy, increasing the dose of the lisinopril from 10 mg daily to 40 mg daily as the patient's blood pressure is still staying high. Apixaban will be continued as 5 mg b.i.d. The patient has also been started on IV antibiotic therapy, which will be continued. Cardiac echo Doppler study will be ordered and reviewed once done. Follow-up BNP level as well as BMP levels will be ordered. I will follow the patient with you and highly thank you very much for letting me participate in the care of the patient. DT: 10:39:49 TT: 11:22:00 Ref: [id number] - TID: [id number]
--- NOTE | 2024-12-05 11:48 | PD.RESPRO ---
Documentation for date of: 12/05/24 Subjective Subjective Interval history: Patient seen today at the bedside fine awake, alert, oriented x 3. Vital signs and labs reviewed. Today with -2.3 L fluid balance. Currently complaining of back pain, pain regimen adjusted. Cardiology saw the patient and recommended starting the patient on lisinopril 40 mg daily. Will continue at this time with Lasix 40 twice daily for CHF and antibiotics and breathing treatments for COPD/pneumonia. Exam Vital Signs Temp Pulse Resp BP Pulse Ox O2 Del Method O2 Flow Rate 97.3 F 90 24 H 174/97 H 99 BiPAP 2 12/05/24 08:00 12/05/24 10:31 12/05/24 08:00 12/05/24 10:31 12/05/24 08:00 12/05/24 08:00 12/05/24 00:00 FiO2 30 12/05/24 08:00 Narrative Exam Physical Exam GENERAL: NAD, AAOx3, obese HEENT: Moist mucosa. Eyes open, symmetrical, & clear CARDIO: Heart RRR, no obvious murmurs PULM: No noted coughing/dyspnea CTA B/L, however examination limited due to body habitus GI: Abdomen soft, nondistended, no pain on palpation. BSx4 SKIN/MSK/EXT: bruising in B/L lower extremities, and RUE, trace edema, Pedal pulses present B/L NEURO: AAOx3, no focal neuro deficits, able to move all 4 extremities Objective Labs 12/06/24 05:28 12/06/24 05:28 Labs: Laboratory Results - last 24 hr 12/04/24 12/04/24 12/04/24 12:18 13:57 17:46 WBC 21.7 H RBC 4.88 Hgb 15.6 Hct 47.9 MCV 98 MCH 32.0 MCHC 32.6 RDW Std Deviation 53.8 H Plt Count 223 Neut % (Auto) 73 Lymph % (Auto) 10 [place] % (Auto) 11 Eos % (Auto) 1 Baso % (Auto) 1 Neut # (Auto) 15.9 H Lymph # (Auto) 2.2 [place] # (Auto) 2.5 H Eos # (Auto) 0.3 Baso # (Auto) 0.1 Immature Gran # (Auto) 0.78 H Absolute Nucleated RBC 0.00 Immature Gran % 4 H Nucleated RBC % 0 PT 12.9 H INR 1.2 APTT 28.4 Puncture Site Right Radial ABG pH 7.38 ABG pCO2 54 H ABG pO2 187 H ABG HCO3 32 H ABG O2 Saturation 100 H ABG Base Excess 5 H VBG pH 7.65 VBG pCO2 26 L VBG pO2 79 H VBG O2 Sat (Denzel) 98 H VBG Base Excess 9 H FiO2 50 Sodium 143 Potassium 3.6 Chloride 103 Carbon Dioxide 30.8 Anion Gap 9 BUN 19 Creatinine 1.0 Estim Creat Clear Calc Not Performed. eGFR > 60 BUN/Creatinine Ratio 19 Glucose 122 H Calculated Osmolality 288 Lactic Acid 1.7 Calcium 9.1 Corrected Calcium 9.1 Phosphorus Magnesium Total Bilirubin 1.5 H Direct Bilirubin 0.3 AST 30 ALT 41 Alkaline Phosphatase 57 Troponin I 0.031 C-Reactive Prot, Quant 1.0 H B-Natriuretic Peptide 1464 H* Total Protein 6.4 Albumin 4.1 Globulin 2.3 Albumin/Globulin Ratio 1.8 Procalcitonin 0.10 Influenza A (Rapid) Negative Influenza B (Rapid) Negative RSV Rapid Negative 12/05/24 05:05 WBC 12.6 H D RBC 5.03 Hgb 16.3 H Hct 48.8 MCV 97 MCH 32.4 MCHC 33.4 RDW Std Deviation 52.6 H Plt Count 186 D Neut % (Auto) 81 H Lymph % (Auto) 8 L [place] % (Auto) 7 Eos % (Auto) 0 Baso % (Auto) 1 Neut # (Auto) 10.2 H Lymph # (Auto) 1.0 [place] # (Auto) 0.9 H Eos # (Auto) 0.0 Baso # (Auto) 0.1 Immature Gran # (Auto) 0.45 H Absolute Nucleated RBC 0.00 Immature Gran % 4 H Nucleated RBC % 0 PT INR APTT Puncture Site ABG pH ABG pCO2 ABG pO2 ABG HCO3 ABG O2 Saturation ABG Base Excess VBG pH VBG pCO2 VBG pO2 VBG O2 Sat (Denzel) VBG Base Excess FiO2 Sodium 138 Potassium 3.5 Chloride 96 L Carbon Dioxide 30.3 Anion Gap 12 BUN 26 H Creatinine 1.0 Estim Creat Clear Calc 88.0 eGFR > 60 BUN/Creatinine Ratio 26 H Glucose 133 H Calculated Osmolality 282 Lactic Acid Calcium 9.2 Corrected Calcium 9.2 Phosphorus 4.1 Magnesium 2.0 Total Bilirubin 1.4 H Direct Bilirubin AST 22 ALT 34 Alkaline Phosphatase 53 Troponin I C-Reactive Prot, Quant B-Natriuretic Peptide 907 H* Total Protein 6.5 Albumin 4.1 Globulin 2.4 Albumin/Globulin Ratio 1.7 Procalcitonin Influenza A (Rapid) Influenza B (Rapid) RSV Rapid ABG Interpretation ABG results: 12/04/24 12/04/24 12:18 13:57 ABG pH 7.38 ABG pCO2 54 H ABG pO2 187 H ABG HCO3 32 H ABG O2 Saturation 100 H ABG Base Excess 5 H VBG pH 7.65 VBG pCO2 26 L VBG pO2 79 H VBG Base Excess 9 H Quality Measures Quality Measures VTE prophylaxis Advance care planning discussed with:: patient Assessment & Plan Assessment Current Active Medications: Generic Name Dose Route Start Last Admin Trade Name Freq PRN Reason Stop Dose Admin Acetaminophen 650 mg 12/04/24 15:03 Acetaminophen 325 Mg Tablet PO 01/03/25 15:02 Q6H PRN Fever >100.4 or pain 1-3 Albuterol/Ipratropium 3 ml 12/04/24 15:09 Albuterol/Ipratropium (Duoneb) Rt Viridiana 3 Ml Nebu INH 01/03/25 15:08 Q2HR PRN SHORTNESS OF BREATH OR WHEEZE Amlodipine Besylate 5 mg 12/05/24 09:00 12/05/24 08:30 Amlodipine Besylate 5 Mg Tablet PO 01/04/25 08:59 5 mg QDAY YESSI Administration Apixaban 5 mg 12/04/24 21:00 12/05/24 08:31 Apixaban 2.5 Mg Tablet PO 01/03/25 20:59 5 mg BID YESSI Administration Docusate Sodium 100 mg 12/04/24 15:03 Docusate Sod 100 Mg Capsule PO 01/03/25 15:02 QDAY PRN CONSTIPATION Protocol Furosemide 40 mg 12/04/24 21:00 12/05/24 08:30 Furosemide Inj 10 Mg/Ml 4ml Vial IVP 01/03/25 20:59 40 mg BID YESSI Administration Hydralazine HCl 10 mg 12/04/24 22:03 Hydralazine Inj 20 Mg/Ml Vial IV 01/04/25 00:00 Q2HR PRN SBP>180 Azithromycin 250 mg/ Sodium 250 mls @ 250 mls/hr 12/04/24 17:00 12/04/24 19:05 Chloride IV 12/11/24 16:59 Infused Q24H YESSI Infusion Ceftriaxone Sodium/Dextrose 1 gm in 50 mls @ 100 mls/hr 12/05/24 14:00 Rocephin/D5w 1gm Iv Premix IV 12/12/24 13:59 QDAY YESSI Lisinopril 40 mg 12/06/24 09:00 Lisinopril 20 Mg Tablet PO 01/05/25 08:59 QDAY YESSI Metoprolol Tartrate 100 mg 12/04/24 21:00 12/05/24 08:31 Metoprolol Tartrate 25 Mg Tablet PO 01/03/25 20:59 100 mg BID YESSI Administration Ondansetron HCl 4 mg 12/04/24 15:03 Ondansetron Inj 2 Mg/Ml Inj 2 Ml IV 01/03/25 15:02 Q6H PRN NAUSEA OR VOMITING Protocol Oxycodone/Acetaminophen 2 tab 12/05/24 09:45 Oxycodone/Apap 5/325 Tablet PO 12/10/24 09:44 Q6HR PRN PAIN SCALE 4-10(Mod-Sev Sennosides 1 tab 12/04/24 15:03 Senna Tablet PO 01/03/25 15:02 QDAY PRN constipation Protocol Sodium Chloride 3 ml 12/04/24 13:22 Sodium Chloride Rt Viridiana 0.9% 3 Ml Nebu INH 01/03/25 13:21 PRN PRN SOLN Plan 79/o M with PMHx significant for COPD, hypertension, A-fib presents with chief complaint of progressive shortness of breath, admitted for congestive heart failure. #New onset CHF Patient apparently has no history of heart failure. Patient sees Dr. Dc cardiology and had echocardiogram and stress test about 1 or 2 months ago, patient indicates results were normal. However at the time of admission patient had lower extremity edema going up to the sacral region. Patient has positive orthopnea and dyspnea with minimal exertion and paroxysmal nocturnal dyspnea requiring about 3 pillows each night to sleep. Patient was also found with a brain natruretic peptide of 1464. Then the chest x-ray showing vascular congestion. - Echo ordered - Lasix 40 mg IV twice daily - Strict ins and outs with Turner cath, - daily weights - fluid restriction 1800 cc - Cardiology consulted, appreciate recommendations - f/u BNP lvls , per cardiology reccs #COPD #Early pneumonia Patient has history of COPD. Chest x-ray showed signs of vascular congestion along with possible early pneumonia. Patient denies increased cough or sputum production. Patient not use oxygen at home. Minimal expiratory wheezes on exam. Pro-Shawn negative, patient had elevated WBC 21.7. ABG did not show significant CO2 retention, pH normal. Patient states he uses 6 L of home oxygen however is not sure possibly referring to CPAP machine. - DuoNebs as needed - BiPAP as needed - Ceftriaxone 1 g IV daily (started 12/04-) - Azithromycin 250 mg IV daily (started 12/04-) #Hypertension #Chronic Atrial-fibrillation Patient history as stated. Patient's not using rate or rhythm control medication, using Eliquis. - Resume home Eliquis, - on lisinopril 40mg qday - Consider resuming other meds as appropriate #Chronic back pain Patient at home uses oxycodone 10 mg Patient here was given fives and did not control the pain ? Adjusted pain regimen oxycodone 10 mg ? 1 mg morphine IV x 1 given Case discussed with attending Dr. Mcmillan. Felix Padilla MD PGY-1 DVT prophylaxis: Eliquis GI prophylaxis: None Diet: Cardiac Lines: PIV, Turner cath Code status: Full code Attending Provider Attestation/Addendum Barbi Nelson DO, attest that I was physically present for the [place] portions of the service and evaluated the patient with the resident and I reviewed and discussed the case with the resident and agree with the resident's findings and plans of care as documented above Patient seen eval this a.m. Patient reports feeling some improvement with shortness of breath. He is currently on 3 L nasal cannula and was recently transition from BiPAP this morning. He continues to have some breaks in sentences while speaking. He otherwise denies any chest pain, dizziness, lightheadedness, nausea, vomiting, fevers or chills. He denies any productive sputum. Pending echocardiogram. Continue diuresis and follow renal panel closely. Patient continues to have 1+ bilateral pitting edema bilateral lower extremities. Bibasilar crackles noted on exam. Advised patient to wear BiPAP at night. Pending physical therapy due to frequent falls at home and generalized weakness.
[2024-12-05] MEDS: oxyCODONE/APAP 5/325 TABLET 2 TAB PO ×2 (12:28→18:34)
[2024-12-05] MEDS: cefTRIAXone/D5w 1gm IV premix 1 GM/50 ML BAG IV (14:52)
--- NOTE | 2024-12-05 15:08 | PC.SS ---
Rounding Note: Echo is pending. Dr. Dc consulting on the case.
[2024-12-05] MEDS: AZITHROMYCIN INJ 250 MG in SODIUM CHLORIDE 0.9% 250 ML 250 ML IV (17:47)
[2024-12-06] VITALS (16 sets, daily range): BP systolic 120–176; BP diastolic 72–113; PULSE 62–93; RESP 16–24; TEMP 35.9–36.7; O2SAT 95–99; BMI 38.9; BMI 39.4
[2024-12-06] MEDS: oxyCODONE/APAP 5/325 TABLET 2 TAB PO ×4 (00:13→19:49)
[2024-12-06] MEDS: hydrALAZINE INJ 20 MG/ML VIAL 10 MG IV (00:28)
--- NOTE | 2024-12-06 00:37 | PC.NURSE ---
SPOKE WITH DR. CHEN IN REGARDS TO BP OF 173/113. BP MEDS ADJUSTED TODAY. HYDRALAZINE PRN FOR SBP >180. PER , OK TO GIVE NOW.
[2024-12-06 05:55] LABS: Basophils # (Auto) 0.1 Thou/mm3 (0.0-0.2); Basophils % (Auto) 0 % (0-2.5); Eosinophils % (Auto) 0 % (0-10); Hematocrit 49.3 % (41.0-53.0); Hemoglobin 16.4 g/dL (13.5-16.0); Immature Granulocytes % (Auto) 2 % (0-0); Immature Granulocytes Auto 0.36 Thou/mm3 (0.00-0.00); Lymphocytes # (Auto) 1.7 Thou/mm3 (1.0-4.8); Lymphocytes % (Auto) 10 % (10-50); Mean Corpuscular HGB Conc 33.3 g/dl (31.0-37.0); Mean Corpuscular Hemoglobin 32.3 pg (25.0-35.0); Mean Corpuscular Volume 97 fL (80-100); Monocytes # (Auto) 1.7 Thou/mm3 (0.0-0.8); Monocytes % (Auto) 10 % (0-12); Neutrophils # (Auto) 12.9 Thou/mm3 (1.8-7.7); Neutrophils % (Auto) 77 % (37-80); Nucleated Red Blood Cell % 0 /100 WBC (0); Platelet Count 185 Thou/mm3 (140-440); RDW Standard Deviation 52.8 fL (35.1-43.9); Red Blood Count 5.08 Miln/mm3 (4.50-5.90); White Blood Count 16.8 Thou/mm3 (3.8-10.6)
[2024-12-06 06:28] LABS: Alanine Aminotransferase 30 U/L (10-49); Albumin/Globulin Ratio 1.6 (1.2-2.2); Alkaline Phosphatase 51 U/L (46-116); Anion Gap 8 (7-16); Aspartate Amino Transferase 32 U/L (0-34); BUN/Creatinine Ratio 36 Ratio (12-20); Bilirubin,Total 1.3 mg/dL (0.3-1.2); Blood Urea Nitrogen 36 mg/dL (9-23); Calcium 9.3 mg/dL (8.3-10.6); Calcium (Corrected) 9.3 mg/dL (8.5-10.1); Carbon Dioxide 34.6 mMol/L (20.0-31.0); Chloride 99 mMol/L (98-107); Estimated Creatinine Clearance 88.8 mL/min (>60); Globulin 2.5 gm/dL (2.3-3.5); Glucose 127 mg/dL (74-106); Osmolality,Calculated 293 (275-295); Potassium 3.7 mMol/L (3.4-5.1); Sodium 142 mMol/L (136-145); Total Protein 6.5 gm/dL (5.7-8.2); eGFR > 60 See Note
[2024-12-06 06:39] LABS: B-Type Natriuretic Peptide 556 pg/mL (0-100)
[2024-12-06] MEDS: Magnesium Sulfate 2 GM Ivpb 2 GM/50 ML BAG IV (09:02)
[2024-12-06] MEDS: FUROSEMIDE INJ 10 MG/ML 4ML VIAL 40 MG IVP (09:02)
[2024-12-06] MEDS: METOPROLOL TARTRATE 25 MG TABLET 100 MG PO ×2 (09:02→21:28)
[2024-12-06] MEDS: POTASSIUM CHLORIDE 20 mEq TABCR 40 MEQ PO (09:02)
[2024-12-06] MEDS: cefTRIAXone/D5w 1gm IV premix 1 GM/50 ML BAG IV (09:02)
[2024-12-06] MEDS: amLODIPine BESYLATE 5 MG TABLET 10 MG PO (09:03)
[2024-12-06] MEDS: Lisinopril 20 MG TABLET 40 MG PO (09:03)
[2024-12-06] MEDS: APIXABAN 2.5 MG TABLET 5 MG PO ×2 (09:03→21:28)
--- NOTE | 2024-12-06 09:59 | PC.SS ---
TELEVISION ACTOR informed bedside nurse of need to conduct room air evaluation on behalf of the patient to initiate referral for home oxygen. Patient currently on 3L nasal cannula.
--- NOTE | 2024-12-06 10:11 | PC.SS ---
FAMILY [employer]OCATE conducted bedside contact with the patient conduct initial assessment and to discuss discharge planning.? Patient confirmed demographic information.? Patient resides at home with spouse, Kali Ivy .? Patient a [employer] .? Patient is service connected with [employer] Patient utilizes a walker to assist with ambulation.? Patient states need for home oxygen.? Patient stated previous use of home oxygen. Home concentrator not functioning.? Per patient home oxygen provided by vendor located on the [facility].? Vendor no longer servicing patient due to re-location to [facility]. pharmacy services director to follow up with home oxygen requirement.? Patient describes the ability to complete ADL?s independently.? Patient identified spouse, Kali Ivy; as medical surrogate decision maker.? Patient utilizes [facility] for PCP services.? Patient?s budget controller is Dr. Dc. ?Patient does not participate with dialysis.? pharmacy services director to submit DME referral for home oxygen.? Patient currently on 3L.? No preferred vendor identified.? Plan is for the patient to return home at the time of discharge.? Family will provide transportation on behalf of the patient. ?No further discharge needs identified by the patient.? No further intervention required at this time, family welfare social work professor will be available to address any further concerns.? Next of Kin: Kali Biju D/C Plan: Home
[2024-12-06] MEDS: SENNA TABLET 1 TAB PO (12:33)
--- NOTE | 2024-12-06 12:52 | ESPR_ITS ---
RE: SUSANA SCOTT : 1945 DATE OF SERVICE: 12/06/2024 S: Mr. Schwartz is breathing better today. The patient's symptoms of swelling of the feet are also better. Denies any complaints of chest pain. Denies any complaints of skipped beats or palpitations. O: VITAL SIGNS: The patient's blood pressure today is on the higher side and is 147/101, the pulse rate is 78 per minute and irregularly irregular. The patient's respiratory rate is 19 per minute. The temperature is 98.0. The oximetry saturation is 99% on BiPAP. HEART: Clear except for the irregularly irregular heart rhythm. LUNGS: Decreased breath on the basis. EXTREMITIES: Trace pedal edema is noted. LABORATORY DATA: Today shows WBC count is 16,800, hemoglobin is 16.4 with hematocrit of 49.3. The patient's BUN today is 36, creatinine is 1.0, potassium level is 3.7, BNP level is better than yesterday though he has still on the higher side and is 556. P: Continue the patient on intravenous antibiotic therapy, continuing the patient on IV diuretic therapy, continuing the patient on beta-mariana therapy as well as apixaban. The patient is on IV antibiotic therapy, which will be continued. Follow-up lab work will be checked. The cardiac echo Doppler study was done yesterday and was technically difficult study because of the COPD. Left ventricular systolic function though is in normal range and is 50% to 55% ejection fraction. Mild mitral and mild tricuspid regurgitation was noted. Mild pulmonary hypertension was also reported. DT: 11:22:40 TT: 12:50:00 Ref: [id number] - TID: [id number]
--- NOTE | 2024-12-06 15:09 | ESPR_ITS ---
<Statement entered by Sigifredo Lara MD - 12/08/24 15:42> I reviewed above note and agree with findings and plans. I have also personally examined the patient with medicine team and went over assessment and plan with medical team including landscape maintenance internship and resident physician. Documentation for date of: 12/06/24 Subjective Subjective Interval history: Patient seen today at the bedside found awake, alert, oriented x 3. No overnight events reported. Vital signs and labs reviewed. Will continue current management at this time. pending echo read at this time. Encourage patient to ambulate in the room. Anticipate discharge in next 24 to 48 hours. Exam Vital Signs Temp Pulse Resp BP Pulse Ox O2 Del Method O2 Flow Rate 97.6 F 79 24 H 120/87 H 95 Nasal Cannula 2 12/06/24 12:00 12/06/24 12:00 12/06/24 12:00 12/06/24 12:00 12/06/24 12:00 12/06/24 12:00 12/06/24 12:00 FiO2 30 12/06/24 10:40 Narrative Exam Physical Exam GENERAL: NAD, AAOx3, obese HEENT: Moist mucosa. Eyes open, symmetrical, & clear CARDIO: Heart RRR, no obvious murmurs PULM: No noted coughing/dyspnea CTA B/L, however examination limited due to body habitus GI: Abdomen soft, nondistended, no pain on palpation. BSx4 SKIN/MSK/EXT: bruising in B/L lower extremities, and RUE, trace edema, Pedal pulses present B/L NEURO: AAOx3, no focal neuro deficits, able to move all 4 extremities Objective Labs 12/06/24 05:28 12/06/24 05:28 Labs: Laboratory Results - last 24 hr 12/06/24 05:28 WBC 16.8 H RBC 5.08 Hgb 16.4 H Hct 49.3 MCV 97 MCH 32.3 MCHC 33.3 RDW Std Deviation 52.8 H Plt Count 185 Neut % (Auto) 77 Lymph % (Auto) 10 [place] % (Auto) 10 Eos % (Auto) 0 Baso % (Auto) 0 Neut # (Auto) 12.9 H Lymph # (Auto) 1.7 [place] # (Auto) 1.7 H Eos # (Auto) 0.0 Baso # (Auto) 0.1 Immature Gran # (Auto) 0.36 H Absolute Nucleated RBC 0.00 Immature Gran % 2 H Nucleated RBC % 0 Sodium 142 Potassium 3.7 Chloride 99 Carbon Dioxide 34.6 H Anion Gap 8 BUN 36 H Creatinine 1.0 Estim Creat Clear Calc 88.8 eGFR > 60 BUN/Creatinine Ratio 36 H Glucose 127 H Calculated Osmolality 293 Calcium 9.3 Corrected Calcium 9.3 Phosphorus 3.0 Magnesium 2.0 Total Bilirubin 1.3 H AST 32 ALT 30 Alkaline Phosphatase 51 B-Natriuretic Peptide 556 H* Total Protein 6.5 Albumin 4.0 Globulin 2.5 Albumin/Globulin Ratio 1.6 ABG Interpretation ABG results: 12/04/24 12/04/24 12:18 13:57 ABG pH 7.38 ABG pCO2 54 H ABG pO2 187 H ABG HCO3 32 H ABG O2 Saturation 100 H ABG Base Excess 5 H VBG pH 7.65 VBG pCO2 26 L VBG pO2 79 H VBG Base Excess 9 H Quality Measures Quality Measures VTE prophylaxis Advance care planning discussed with:: patient Assessment & Plan Assessment Current Active Medications: Generic Name Dose Route Start Last Admin Trade Name Freq PRN Reason Stop Dose Admin Acetaminophen 650 mg 12/04/24 15:03 Acetaminophen 325 Mg Tablet PO 01/03/25 15:02 Q6H PRN Fever >100.4 or pain 1-3 Albuterol/Ipratropium 3 ml 12/04/24 15:09 Albuterol/Ipratropium (Duoneb) Rt Viridiana 3 Ml Nebu INH 01/03/25 15:08 Q2HR PRN SHORTNESS OF BREATH OR WHEEZE Amlodipine Besylate 10 mg 12/06/24 09:00 12/06/24 09:03 Amlodipine Besylate 5 Mg Tablet PO 01/05/25 08:59 10 mg QDAY YESSI Administration Apixaban 5 mg 12/04/24 21:00 12/06/24 09:03 Apixaban 2.5 Mg Tablet PO 01/03/25 20:59 5 mg BID YESSI Administration Docusate Sodium 100 mg 12/04/24 15:03 Docusate Sod 100 Mg Capsule PO 01/03/25 15:02 QDAY PRN CONSTIPATION Protocol Furosemide 40 mg 12/07/24 09:00 Furosemide 40 Mg Tablet PO 01/06/25 08:59 QDAY YESSI Hydralazine HCl 10 mg 12/04/24 22:03 12/06/24 00:28 Hydralazine Inj 20 Mg/Ml Vial IV 01/04/25 00:00 10 mg Q2HR PRN Administration SBP>180 Azithromycin 250 mg/ Sodium 250 mls @ 250 mls/hr 12/04/24 17:00 12/05/24 17:47 Chloride IV 12/11/24 16:59 250 mls/hr Q24H YESSI Administration Ceftriaxone Sodium/Dextrose 1 gm in 50 mls @ 100 mls/hr 12/05/24 14:00 12/06/24 09:02 Rocephin/D5w 1gm Iv Premix IV 12/12/24 13:59 100 mls/hr QDAY YESSI Administration Lisinopril 40 mg 12/06/24 09:00 12/06/24 09:03 Lisinopril 20 Mg Tablet PO 01/05/25 08:59 40 mg QDAY YESSI Administration Metoprolol Tartrate 100 mg 12/04/24 21:00 12/06/24 09:02 Metoprolol Tartrate 25 Mg Tablet PO 01/03/25 20:59 100 mg BID YESSI Administration Ondansetron HCl 4 mg 12/04/24 15:03 Ondansetron Inj 2 Mg/Ml Inj 2 Ml IV 01/03/25 15:02 Q6H PRN NAUSEA OR VOMITING Protocol Oxycodone/Acetaminophen 2 tab 12/05/24 09:45 12/06/24 12:31 Oxycodone/Apap 5/325 Tablet PO 12/10/24 09:44 2 tab Q6HR PRN Administration PAIN SCALE 4-10(Mod-Sev Sennosides 1 tab 12/04/24 15:03 12/06/24 12:33 Senna Tablet PO 01/03/25 15:02 1 tab QDAY PRN Administration constipation Protocol Sodium Chloride 3 ml 12/04/24 13:22 Sodium Chloride Rt Viridiana 0.9% 3 Ml Nebu INH 01/03/25 13:21 PRN PRN SOLN Plan 79/o M with PMHx significant for COPD, hypertension, A-fib presents with chief complaint of progressive shortness of breath, admitted for congestive heart failure. #New onset CHF Patient apparently has no history of heart failure. Patient sees Dr. cD cardiology and had echocardiogram and stress test about 1 or 2 months ago, patient indicates results were normal. However at the time of admission patient had lower extremity edema going up to the sacral region. Patient has positive orthopnea and dyspnea with minimal exertion and paroxysmal nocturnal dyspnea requiring about 3 pillows each night to sleep. Patient was also found with a brain natruretic peptide of 1464. Then the chest x-ray showing vascular congestion. - Echo ordered, pending read - Lasix 40 mg PO twice daily - Strict ins and outs with Turner cath, - daily weights - fluid restriction 1800 cc - Cardiology consulted, appreciate recommendations - f/u BNP lvls , per cardiology reccs #COPD #Early pneumonia Patient has history of COPD. Chest x-ray showed signs of vascular congestion along with possible early pneumonia. Patient denies increased cough or sputum production. Patient not use oxygen at home. Minimal expiratory wheezes on exam. Pro-Shawn negative, patient had elevated WBC 21.7. ABG did not show significant CO2 retention, pH normal. Patient states he uses 6 L of home oxygen however is not sure possibly referring to CPAP machine. - DuoNebs as needed - BiPAP as needed - Ceftriaxone 1 g IV daily (started 12/04-) - Azithromycin 250 mg IV daily (started 12/04-) #Hypertension #Chronic Atrial-fibrillation Patient history as stated. Patient's not using rate or rhythm control medication, using Eliquis. - Resume home Eliquis, - on lisinopril 40mg qday - Consider resuming other meds as appropriate #Chronic back pain Patient at home uses oxycodone 10 mg Patient here was given fives and did not control the pain ? Adjusted pain regimen oxycodone 10 mg ? 1 mg morphine IV x 1 given Case discussed with my senior Dr. Heath PGY-[address] Lara. Felix Padilla MD PGY-1 DVT prophylaxis: Eliquis GI prophylaxis: None Diet: Cardiac Lines: PIV, Turner cath Code status: Full code
--- NOTE | 2024-12-06 16:17 | PC.PT ---
Patient was approached at 10:30 and was on BiPAP. RN asked PT to see if patient was off BiPAP and safe to work with after lunch. PT returned to see patient at 14:30. Patient was on nasal cannula but asked PT to get his nurse to place him back onto BiPAP because hew was feeling a lot of chest tightness. Patient did not want to work with PT today due to the tightness he felt in his chest. Patient was put back onto BiPAP as PT left the room. Will re-attempt PT at another time.
[2024-12-06] MEDS: AZITHROMYCIN INJ 250 MG in SODIUM CHLORIDE 0.9% 250 ML 250 ML IV (17:22)
[2024-12-07] VITALS (15 sets, daily range): BP systolic 137–162; BP diastolic 91–102; PULSE 62–90; RESP 16–26; TEMP 36–36.3; O2SAT 95–100; BMI 38.8
[2024-12-07] MEDS: oxyCODONE/APAP 5/325 TABLET 2 TAB PO ×4 (02:10→21:29)
[2024-12-07 06:10] LABS: Basophils # (Auto) 0.1 Thou/mm3 (0.0-0.2); Basophils % (Auto) 0 % (0-2.5); Eosinophils # (Auto) 0.3 Thou/mm3 (0.0-0.5); Eosinophils % (Auto) 2 % (0-10); Hematocrit 46.9 % (41.0-53.0); Hemoglobin 15.8 g/dL (13.5-16.0); Immature Granulocytes % (Auto) 3 % (0-0); Immature Granulocytes Auto 0.43 Thou/mm3 (0.00-0.00); Lymphocytes # (Auto) 2.3 Thou/mm3 (1.0-4.8); Lymphocytes % (Auto) 15 % (10-50); Mean Corpuscular HGB Conc 33.7 g/dl (31.0-37.0); Mean Corpuscular Hemoglobin 32.3 pg (25.0-35.0); Mean Corpuscular Volume 96 fL (80-100); Monocytes # (Auto) 2.2 Thou/mm3 (0.0-0.8); Monocytes % (Auto) 14 % (0-12); Neutrophils # (Auto) 10.4 Thou/mm3 (1.8-7.7); Neutrophils % (Auto) 66 % (37-80); Nucleated Red Blood Cell % 0 /100 WBC (0); Platelet Count 192 Thou/mm3 (140-440); RDW Standard Deviation 52.1 fL (35.1-43.9); Red Blood Count 4.89 Miln/mm3 (4.50-5.90); White Blood Count 15.8 Thou/mm3 (3.8-10.6)
[2024-12-07 06:34] LABS: Alanine Aminotransferase 38 U/L (10-49); Albumin, Serum 3.9 gm/dL (3.4-4.8); Albumin/Globulin Ratio 1.8 (1.2-2.2); Alkaline Phosphatase 50 U/L (46-116); Anion Gap 7 (7-16); Aspartate Amino Transferase 55 U/L (0-34); BUN/Creatinine Ratio 37 Ratio (12-20); Bilirubin,Total 1.3 mg/dL (0.3-1.2); Blood Urea Nitrogen 33 mg/dL (9-23); Calcium 8.7 mg/dL (8.3-10.6); Calcium (Corrected) 8.8 mg/dL (8.5-10.1); Carbon Dioxide 33.8 mMol/L (20.0-31.0); Chloride 100 mMol/L (98-107); Creatinine (Component) 0.9 mg/dL (0.6-1.3); Globulin 2.2 gm/dL (2.3-3.5); Glucose 121 mg/dL (74-106); Magnesium 2.2 mg/dL (1.6-2.6); Osmolality,Calculated 289 (275-295); Phosphorous 2.6 mg/dL (2.4-5.1); Potassium 4.3 mMol/L (3.4-5.1); Sodium 141 mMol/L (136-145); Total Protein 6.1 gm/dL (5.7-8.2); eGFR > 60 See Note
[2024-12-07 06:43] LABS: Path Review Blood Smear Sent to Pathologist
[2024-12-07] MEDS: METOPROLOL TARTRATE 25 MG TABLET 100 MG PO ×2 (08:11→21:30)
[2024-12-07] MEDS: amLODIPine BESYLATE 5 MG TABLET 10 MG PO (08:11)
[2024-12-07] MEDS: APIXABAN 2.5 MG TABLET 5 MG PO ×2 (08:11→21:30)
[2024-12-07] MEDS: Furosemide 40 MG TABLET PO (08:11)
[2024-12-07] MEDS: cefTRIAXone/D5w 1gm IV premix 1 GM/50 ML BAG IV (08:11)
[2024-12-07] MEDS: Lisinopril 20 MG TABLET 40 MG PO (08:12)
--- NOTE | 2024-12-07 13:28 | ESPR_ITS ---
<Statement entered by Sigifredo Lara MD - 12/12/24 14:46> I reviewed above note and agree with findings and plans. I have also personally examined the patient with medicine team and went over assessment and plan with medical team including human resources intern and resident physician. Documentation for date of: 12/07/24 Subjective Subjective Interval history: Patient is seen and examined at bedside No acute overnight events. Patient was on BiPAP overnight. Stated that his overall condition improved and his shortness of breath is improving Vitals are stable except for mildly elevated blood pressures. On physical examination, bilateral pitting pedal edema noted Labs showed downtrending WBC, mild metabolic alkalosis, bicarb 33.8 Will continue diuresis for now. Plan to discharge tomorrow with home CPAP Exam Vital Signs Temp Pulse Resp BP Pulse Ox O2 Del Method O2 Flow Rate 96.8 F 74 18 162/102 H 98 BiPAP 4 12/07/24 08:00 12/07/24 12:16 12/07/24 12:16 12/07/24 08:12 12/07/24 12:16 12/07/24 08:00 12/07/24 07:45 FiO2 30 12/07/24 10:25 Narrative Exam General: Awake. HEENT: Normocephalic, atraumatic, mucous membranes moist. Heart: Irregular rate and rhythm, no murmurs. Lungs: Clear to auscultation with no wheezing or crackles. Overall decreased breath sounds noted Abdomen: Soft, nondistended, nontender, positive bowel sounds. ?No guarding or rebound tenderness. Neurologic: Alert and oriented x3, no gross neurological deficit, and patient able to move all 4 extremities. Extremities: Bilateral 2+ pitting pedal edema extending up to the knees. Skin: No rash or ecchymoses. Objective Labs 12/07/24 05:39 12/07/24 05:39 Labs: Laboratory Results - last 24 hr 12/07/24 05:39 WBC 15.8 H RBC 4.89 Hgb 15.8 Hct 46.9 MCV 96 MCH 32.3 MCHC 33.7 RDW Std Deviation 52.1 H Plt Count 192 Neut % (Auto) 66 Lymph % (Auto) 15 [place] % (Auto) 14 H Eos % (Auto) 2 Baso % (Auto) 0 Neut # (Auto) 10.4 H Lymph # (Auto) 2.3 [place] # (Auto) 2.2 H Eos # (Auto) 0.3 Baso # (Auto) 0.1 Immature Gran # (Auto) 0.43 H Absolute Nucleated RBC 0.00 Immature Gran % 3 H Nucleated RBC % 0 Smear Path Review Sent to Pathologist Sodium 141 Potassium 4.3 D Chloride 100 Carbon Dioxide 33.8 H Anion Gap 7 BUN 33 H Creatinine 0.9 Estim Creat Clear Calc 97.0 eGFR > 60 BUN/Creatinine Ratio 37 H Glucose 121 H Calculated Osmolality 289 Calcium 8.7 Corrected Calcium 8.8 Phosphorus 2.6 Magnesium 2.2 Total Bilirubin 1.3 H AST 55 H ALT 38 Alkaline Phosphatase 50 Total Protein 6.1 Albumin 3.9 Globulin 2.2 L Albumin/Globulin Ratio 1.8 ABG Interpretation ABG results: 12/04/24 12/04/24 12:18 13:57 ABG pH 7.38 ABG pCO2 54 H ABG pO2 187 H ABG HCO3 32 H ABG O2 Saturation 100 H ABG Base Excess 5 H VBG pH 7.65 VBG pCO2 26 L VBG pO2 79 H VBG Base Excess 9 H Quality Measures Quality Measures VTE prophylaxis Advance care planning discussed with:: patient Assessment & Plan Assessment Current Active Medications: Generic Name Dose Route Start Last Admin Trade Name Freq PRN Reason Stop Dose Admin Acetaminophen 650 mg 12/04/24 15:03 Acetaminophen 325 Mg Tablet PO 01/03/25 15:02 Q6H PRN Fever >100.4 or pain 1-3 Albuterol/Ipratropium 3 ml 12/04/24 15:09 Albuterol/Ipratropium (Duoneb) Rt Viridiana 3 Ml Nebu INH 01/03/25 15:08 Q2HR PRN SHORTNESS OF BREATH OR WHEEZE Apixaban 5 mg 12/04/24 21:00 12/07/24 08:11 Apixaban 2.5 Mg Tablet PO 01/03/25 20:59 5 mg BID YESSI Administration Docusate Sodium 100 mg 12/04/24 15:03 Docusate Sod 100 Mg Capsule PO 01/03/25 15:02 QDAY PRN CONSTIPATION Protocol Furosemide 40 mg 12/07/24 09:00 12/07/24 08:11 Furosemide 40 Mg Tablet PO 01/06/25 08:59 40 mg QDAY YESSI Administration Hydralazine HCl 10 mg 12/04/24 22:03 12/06/24 00:28 Hydralazine Inj 20 Mg/Ml Vial IV 01/04/25 00:00 10 mg Q2HR PRN Administration SBP>180 Azithromycin 250 mg/ Sodium 250 mls @ 250 mls/hr 12/04/24 17:00 12/06/24 17:22 Chloride IV 12/11/24 16:59 250 mls/hr Q24H YESSI Administration Ceftriaxone Sodium/Dextrose 1 gm in 50 mls @ 100 mls/hr 12/05/24 14:00 12/07/24 08:11 Rocephin/D5w 1gm Iv Premix IV 12/12/24 13:59 100 mls/hr QDAY YESSI Administration Lisinopril 40 mg 12/06/24 09:00 12/07/24 08:12 Lisinopril 20 Mg Tablet PO 01/05/25 08:59 40 mg QDAY YESSI Administration Metoprolol Tartrate 100 mg 12/04/24 21:00 12/07/24 08:11 Metoprolol Tartrate 25 Mg Tablet PO 01/03/25 20:59 100 mg BID YESSI Administration Nifedipine 30 mg 12/07/24 09:00 12/07/24 08:52 Nifedipine Xl 30 Mg Tabcr PO 01/06/25 08:59 Not Given QDAY YESSI Ondansetron HCl 4 mg 12/04/24 15:03 Ondansetron Inj 2 Mg/Ml Inj 2 Ml IV 01/03/25 15:02 Q6H PRN NAUSEA OR VOMITING Protocol Oxycodone/Acetaminophen 2 tab 12/05/24 09:45 12/07/24 09:51 Oxycodone/Apap 5/325 Tablet PO 12/10/24 09:44 2 tab Q6HR PRN Administration PAIN SCALE 4-10(Mod-Sev Sennosides 1 tab 12/04/24 15:03 12/06/24 12:33 Senna Tablet PO 01/03/25 15:02 1 tab QDAY PRN Administration constipation Protocol Sodium Chloride 3 ml 12/04/24 13:22 Sodium Chloride Rt Virid[place] 0.9% 3 Ml Nebu INH 01/03/25 13:21 PRN PRN SOLN Plan 79/o M with PMHx significant for COPD, hypertension, A-fib presents with chief complaint of progressive shortness of breath, admitted for congestive heart failure. #New onset CHF Patient apparently has no history of heart failure. Patient sees Dr. Dc cardiology and had echocardiogram and stress test about 1 or 2 months ago, patient indicates results were normal. However at the time of admission patient had lower extremity edema going up to the sacral region. Patient has positive orthopnea and dyspnea with minimal exertion and paroxysmal nocturnal dyspnea requiring about 3 pillows each night to sleep. Patient was also found with a brain natruretic peptide of 1464. Then the chest x-ray showing vascular congestion. - Echo showed LV& RV appear normal with EF 55-60%. Diastolic Dysfunction II. Mildly elevated RVSP 45 mmHg. Midly Dilated LA - Lasix 40 mg PO once daily - Strict ins and outs with Turner cath, - daily weights - fluid restriction 1800 cc yesterday - on metoprolol 100mg orally twice daily - Cardiology consulted, appreciate recommendations - f/u BNP lvls , per cardiology reccs #COPD #Early pneumonia Patient has history of COPD. Chest x-ray showed signs of vascular congestion along with possible early pneumonia. Patient denies increased cough or sputum production. Patient not use oxygen at home. Minimal expiratory wheezes on exam. Pro-Shawn negative, patient had elevated WBC 21.7. ABG did not show significant CO2 retention, pH normal. Patient states he uses 6 L of home oxygen however is not sure possibly referring to CPAP machine. - DuoNebs as needed - BiPAP as needed - Ceftriaxone 1 g IV daily (started 12/04-) - Azithromycin 250 mg IV daily (started 12/04-) #Hypertension #Chronic Atrial-fibrillation Patient history as stated. Patient's not using rate or rhythm control medication, using Eliquis. - Resume home Eliquis, - on lisinopril 40mg qday and amlodipine 10mg qday - Consider resuming other meds as appropriate #Chronic back pain Patient at home uses oxycodone 10 mg Twice daily ? Adjusted pain regimen oxycodone 10 mg DVT prophylaxis: Eliquis GI prophylaxis: None Diet: Cardiac Lines: PIV, Turner cath Code status: Full code Patient plan of care was discussed with the attending physician, Dr. Marco Carreon, PGY1
[2024-12-07] MEDS: AZITHROMYCIN INJ 250 MG in SODIUM CHLORIDE 0.9% 250 ML 250 ML IV (17:24)
--- NOTE | 2024-12-07 19:40 | ESPR_ITS ---
RE: SUSANA SCOTT : 1945 DATE OF SERVICE: 12/07/2024 SUBJECTIVE: Mr. Scott is resting comfortably in bed. The patient is breathing fairly well. Denies any complaint of chest pain. Denies any complaint of skipped beats or palpitations. The patient's symptoms of swelling of the feet are also improving. OBJECTIVE: Vital Signs: Blood pressure today is 143/100, pulse rate is 90 per minute and irregularly irregular, respiratory rate is 20, and temperature is 96.8. Heart: Clear except irregularly irregular heart rhythm. Lungs: Showed decreased breath at the bases. Extremities: Trace pedal edema is noted. LABORATORY DATA: Today showed WBC count is 15,800 and hemoglobin 15.8 with a hematocrit of 46.9. The patient's BUN today is 33, creatinine 0.9, and potassium level is 4.3. ASSESSMENT AND PLAN: Heart rhythm is staying in atrial fibrillation with moderate ventricular response. The patient's cardiac status at the present time is stable and present cardiac medications will be continued. The patient will be gotten out of bed and ambulated. Discharge planning will be as per the hospital list. I will follow the patient on a p.r.n. basis and patient is advised to come back for followup appointment in my office as an outpatient in 2 weeks after discharge. DT: 19:24:55 TT: 19:39:00 Ref: [id number] - TID: [id number]
[2024-12-08] VITALS (16 sets, daily range): BP systolic 134–171; BP diastolic 71–115; PULSE 65–96; RESP 16–28; TEMP 35.8–36.3; O2SAT 94–100; BMI 38.5
[2024-12-08] MEDS: oxyCODONE/APAP 5/325 TABLET 2 TAB PO ×4 (03:23→23:37)
[2024-12-08] MEDS: Lisinopril 20 MG TABLET 40 MG PO (05:36)
[2024-12-08] MEDS: NIFEdipine XL 30 MG TABCR PO ×2 (05:37→20:51)
[2024-12-08 07:11] LABS: Basophils # (Auto) 0.1 Thou/mm3 (0.0-0.2); Basophils % (Auto) 1 % (0-2.5); Eosinophils # (Auto) 0.4 Thou/mm3 (0.0-0.5); Eosinophils % (Auto) 2 % (0-10); Hematocrit 48.4 % (41.0-53.0); Hemoglobin 16.4 g/dL (13.5-16.0); Immature Granulocytes % (Auto) 3 % (0-0); Immature Granulocytes Auto 0.46 Thou/mm3 (0.00-0.00); Lymphocytes # (Auto) 2.3 Thou/mm3 (1.0-4.8); Lymphocytes % (Auto) 14 % (10-50); Mean Corpuscular HGB Conc 33.9 g/dl (31.0-37.0); Mean Corpuscular Hemoglobin 32.5 pg (25.0-35.0); Mean Corpuscular Volume 96 fL (80-100); Monocytes # (Auto) 2.3 Thou/mm3 (0.0-0.8); Monocytes % (Auto) 14 % (0-12); Neutrophils # (Auto) 10.6 Thou/mm3 (1.8-7.7); Neutrophils % (Auto) 66 % (37-80); Nucleated Red Blood Cell % 0 /100 WBC (0); Platelet Count 211 Thou/mm3 (140-440); RDW Standard Deviation 52.7 fL (35.1-43.9); Red Blood Count 5.04 Miln/mm3 (4.50-5.90); White Blood Count 16.1 Thou/mm3 (3.8-10.6)
[2024-12-08 07:33] LABS: Alanine Aminotransferase 36 U/L (10-49); Albumin/Globulin Ratio 1.8 (1.2-2.2); Alkaline Phosphatase 53 U/L (46-116); Anion Gap 10 (7-16); Aspartate Amino Transferase 36 U/L (0-34); BUN/Creatinine Ratio 31 Ratio (12-20); Bilirubin,Total 1.3 mg/dL (0.3-1.2); Blood Urea Nitrogen 25 mg/dL (9-23); Calcium 8.7 mg/dL (8.3-10.6); Calcium (Corrected) 8.7 mg/dL (8.5-10.1); Carbon Dioxide 32.3 mMol/L (20.0-31.0); Chloride 101 mMol/L (98-107); Creatinine (Component) 0.8 mg/dL (0.6-1.3); Estimated Creatinine Clearance 108.5 mL/min (>60); Globulin 2.2 gm/dL (2.3-3.5); Glucose 122 mg/dL (74-106); Osmolality,Calculated 290 (275-295); Potassium 3.9 mMol/L (3.4-5.1); Sodium 143 mMol/L (136-145); Total Protein 6.2 gm/dL (5.7-8.2); eGFR > 60 See Note
[2024-12-08] MEDS: METOPROLOL TARTRATE 25 MG TABLET 100 MG PO ×2 (09:08→20:52)
[2024-12-08] MEDS: APIXABAN 2.5 MG TABLET 5 MG PO ×2 (09:09→20:51)
[2024-12-08] MEDS: Furosemide 40 MG TABLET PO (09:09)
[2024-12-08] MEDS: cefTRIAXone/D5w 1gm IV premix 1 GM/50 ML BAG IV (09:09)
[2024-12-08] MEDS: AZITHROMYCIN 250 MG TABLET PO (11:00)
--- NOTE | 2024-12-08 11:30 | PD.RESPRO ---
Documentation for date of: 12/08/24 Subjective Subjective Interval history: Patient is seen and examined at bedside. No acute overnight events. Patient is improving on BiPAP overnight. Oxygen requirements down to 1-2 L via nasal cannula. Total output -6.3 L since admission, shortness of breath has resolved. Will continue diuresis for now. He was encouraged to sit to chair. Turner to be discontinued today. Will get ambulatory oxygen evaluation. Pending PT. Case management requested for trilogy set up at home. Anticipate discharge tomorrow. Exam Vital Signs Temp Pulse Resp BP Pulse Ox O2 Del Method O2 Flow Rate 96.9 F 74 18 159/101 H 100 BiPAP 4 12/08/24 08:00 12/08/24 09:09 12/08/24 08:00 12/08/24 09:09 12/08/24 08:00 12/08/24 08:00 12/08/24 08:00 FiO2 30 12/08/24 08:00 Narrative Exam Constitutional Alert, oriented x3, on 2 L oxygen via nasal cannula HEENT Vision grossly intact. Patent nares. Trachea midline. Respiratory Chest normal on inspection and minimal crackles on auscultation bibasilar. Cardiovascular S1 and S2 audible, irregularly irregular. No murmurs or carotid bruit. No gross JVD. Abdominal Soft and non tender to palpation in all quadrants. BS + Genitourinary No bladder tenderness, no flank pain. Normal to palpation. Musculoskeletal Extremities tone within normal limits. 2+ pitting pedal edema extending up to the knees. Neurological CN II - XII grossly intact. Extremity motor and sensation grossly intact. Skin Warm, dry and intact. No apparent lesions. Psychiatric Patient has a good affect, is cooperative. Objective Labs 12/08/24 06:27 12/08/24 06:27 Labs: Laboratory Results - last 24 hr 12/08/24 06:27 WBC 16.1 H RBC 5.04 Hgb 16.4 H Hct 48.4 MCV 96 MCH 32.5 MCHC 33.9 RDW Std Deviation 52.7 H Plt Count 211 Neut % (Auto) 66 Lymph % (Auto) 14 [place] % (Auto) 14 H Eos % (Auto) 2 Baso % (Auto) 1 Neut # (Auto) 10.6 H Lymph # (Auto) 2.3 [place] # (Auto) 2.3 H Eos # (Auto) 0.4 Baso # (Auto) 0.1 Immature Gran # (Auto) 0.46 H Absolute Nucleated RBC 0.00 Immature Gran % 3 H Nucleated RBC % 0 Sodium 143 Potassium 3.9 Chloride 101 Carbon Dioxide 32.3 H Anion Gap 10 BUN 25 H Creatinine 0.8 Estim Creat Clear Calc 108.5 eGFR > 60 BUN/Creatinine Ratio 31 H Glucose 122 H Calculated Osmolality 290 Calcium 8.7 Corrected Calcium 8.7 Total Bilirubin 1.3 H AST 36 H ALT 36 Alkaline Phosphatase 53 Total Protein 6.2 Albumin 4.0 Globulin 2.2 L Albumin/Globulin Ratio 1.8 ABG Interpretation ABG results: 12/04/24 12/04/24 12:18 13:57 ABG pH 7.38 ABG pCO2 54 H ABG pO2 187 H ABG HCO3 32 H ABG O2 Saturation 100 H ABG Base Excess 5 H VBG pH 7.65 VBG pCO2 26 L VBG pO2 79 H VBG Base Excess 9 H Quality Measures Quality Measures VTE prophylaxis Advance care planning discussed with:: patient Assessment & Plan Assessment Current Active Medications: Generic Name Dose Route Start Last Admin Trade Name Freq PRN Reason Stop Dose Admin Acetaminophen 650 mg 12/04/24 15:03 Acetaminophen 325 Mg Tablet PO 01/03/25 15:02 Q6H PRN Fever >100.4 or pain 1-3 Albuterol/Ipratropium 3 ml 12/04/24 15:09 Albuterol/Ipratropium (Duoneb) Rt [place] 3 Ml Nebu INH 01/03/25 15:08 Q2HR PRN SHORTNESS OF BREATH OR WHEEZE Apixaban 5 mg 12/04/24 21:00 12/08/24 09:09 Apixaban 2.5 Mg Tablet PO 01/03/25 20:59 5 mg BID YESSI Administration Azithromycin 250 mg 12/08/24 10:05 12/08/24 11:00 Azithromycin 250 Mg Tablet PO 12/15/24 10:04 250 mg QDAY YESSI Administration Cephalexin HCl 500 mg 12/08/24 12:00 Cephalexin 250 Mg Capsule PO 12/15/24 11:59 QID YESSI Docusate Sodium 100 mg 12/04/24 15:03 Docusate Sod 100 Mg Capsule PO 01/03/25 15:02 QDAY PRN CONSTIPATION Protocol Furosemide 40 mg 12/07/24 09:00 12/08/24 09:09 Furosemide 40 Mg Tablet PO 01/06/25 08:59 40 mg QDAY YESSI Administration Hydralazine HCl 10 mg 12/04/24 22:03 12/06/24 00:28 Hydralazine Inj 20 Mg/Ml Vial IV 01/04/25 00:00 10 mg Q2HR PRN Administration SBP>180 Lisinopril 40 mg 12/06/24 09:00 12/08/24 05:36 Lisinopril 20 Mg Tablet PO 01/05/25 08:59 40 mg QDAY YESSI Administration Metoprolol Tartrate 100 mg 12/04/24 21:00 12/08/24 09:08 Metoprolol Tartrate 25 Mg Tablet PO 01/03/25 20:59 100 mg BID YESSI Administration Nifedipine 30 mg 12/08/24 21:00 Nifedipine Xl 30 Mg Tabcr PO 01/07/25 20:59 BID YESSI Ondansetron HCl 4 mg 12/04/24 15:03 Ondansetron Inj 2 Mg/Ml Inj 2 Ml IV 01/03/25 15:02 Q6H PRN NAUSEA OR VOMITING Protocol Oxycodone/Acetaminophen 2 tab 12/05/24 09:45 12/08/24 09:54 Oxycodone/Apap 5/325 Tablet PO 12/10/24 09:44 2 tab Q6HR PRN Administration PAIN SCALE 4-10(Mod-Sev Sennosides 1 tab 12/04/24 15:03 12/06/24 12:33 Senna Tablet PO 01/03/25 15:02 1 tab QDAY PRN Administration constipation Protocol Sodium Chloride 3 ml 12/04/24 13:22 Sodium Chloride Rt [place] 0.9% 3 Ml Nebu INH 01/03/25 13:21 PRN PRN SOLN Plan Mr Ivy is a 79/o M with PMHx significant for COPD, hypertension, A-fib presents with chief complaint of progressive shortness of breath, admitted for congestive heart failure. 1. Decompensated CHF, new onset in the setting of 2. Chronic Atrial-fibrillation Patient apparently has no history of heart failure. Patient sees Dr. Dc cardiology and had echocardiogram and stress test about 1 or 2 months ago, patient indicates results were normal. However at the time of admission patient had lower extremity edema going up to the sacral region. Patient has positive orthopnea and dyspnea with minimal exertion and paroxysmal nocturnal dyspnea requiring about 3 pillows each night to sleep. - BNP = 1464 - Chest x-ray : vascular congestion - EKG: A. Fib with RVR , HR 70-80s - 12/05 Echo : LV& RV appear normal with EF 55-60%. Diastolic Dysfunction II. Mildly elevated RVSP 45 mmHg. Midly Dilated LA - CHADsVASc score = 4 ; 4.8 % stroke risk annually - HASBLED score = 2 ; Moderate risk of major bleeding - Cardiology was consulted and recommendations appreciated - NYHA Class II at baseline Plan: - Rate control: Metoprolol XL 100 mg PO OD - Anticoagulation: Eliquis 5 mg PO BiD - Continue Lasix 40 mg PO once daily - Strict ins and outs with Turner cath - Monitor daily weights - On fluid restriction 1800 cc yesterday 3. COPD 4. Community acquired pneumonia - resolving Patient has history of COPD. Chest x-ray showed signs of vascular congestion along with possible early pneumonia. Patient denies increased cough or sputum production. Patient not use oxygen at home. Minimal expiratory wheezes on exam. Pro-Shawn negative, patient had elevated WBC 21.7. ABG did not show significant CO2 retention, pH normal. Patient states he uses 6 L of home oxygen however is not sure possibly referring to CPAP machine. Plan: - DuoNebs as needed - HS BiPAP as needed - On Ceftriaxone 1 g IV daily (started 12/04- - On Azithromycin 250 mg IV daily (started 12/04- 5. Primary Hypertension Home meds : Amlodipine + Benazepril Trending 130-160s systolic Plan: - on lisinopril 40mg qday - Switched amlodipine 10mg -> Nifedipine 30mg BID - Consider resuming other meds as appropriate 6. Chronic back pain 7. Opiod induced Constipation Patient at home uses oxycodone 10 mg Twice daily Plan: ? Adjusted pain regimen oxycodone 10 mg - May be causing constipation, will give Miralax x1 Health maintenance: Disposition: Telemetry. Pending Trillegy set up at home prior to DC. Anticipate on 12/09 DVT prophylaxis: Eliquis GI prophylaxis: None Diet: Cardiac Lines: PIV Code status: Full code Plan of care discussed with attending Dr Lara , Kenn Heath M.D. PGY2 Disclaimer: This note was dictated by speech recognition. Minor errors in tester wafer substrate may be present due to voice recognition software.
--- NOTE | 2024-12-08 12:12 | PC.NURSE ---
Pt has been on room air since this morning at 10:45. O2 saturation has remained 95 and above. Patient go up to the bathroom. O2 Saturation remained at 96 on room air.
[2024-12-08] MEDS: cephALEXin 250 MG CAPSULE 500 MG PO ×3 (12:13→20:51)
[2024-12-08] MEDS: POLYETHYLENE GLYCOL 17 GM PACKET PO (12:13)
[2024-12-08] MEDS: ALBUTEROL/IPRATROPIUM (Duoneb) RT SOL 3 ML NEBU INH (14:52)
--- NOTE | 2024-12-08 18:28 | PC.NURSE ---
patient rhythm is been in and out atrial fib to atrial flutter, gloria monterroso is aware. no new order received.
[2024-12-08] MEDS: POTASSIUM CHLORIDE 20 mEq TABCR PO (19:42)
[2024-12-08] MEDS: Magnesium Sulfate 2 GM Ivpb 2 GM/50 ML BAG IV (19:42)
[2024-12-09] VITALS (8 sets, daily range): BP systolic 130–151; BP diastolic 81–91; PULSE 65–81; RESP 16–24; TEMP 36–36.6; O2SAT 93–100; BMI 38.2; BMI 14.0
[2024-12-09] MEDS: cephALEXin 250 MG CAPSULE 500 MG PO (05:49)
[2024-12-09] MEDS: oxyCODONE/APAP 5/325 TABLET 2 TAB PO ×2 (05:49→15:32)
[2024-12-09] MEDS: APIXABAN 2.5 MG TABLET 5 MG PO (08:13)
[2024-12-09] MEDS: AZITHROMYCIN 250 MG TABLET PO (08:13)
[2024-12-09] MEDS: NIFEdipine XL 30 MG TABCR PO (08:14)
[2024-12-09] MEDS: METOPROLOL TARTRATE 25 MG TABLET 100 MG PO (08:14)
[2024-12-09] MEDS: Lisinopril 20 MG TABLET 40 MG PO (08:14)
[2024-12-09] MEDS: Furosemide 40 MG TABLET PO (08:14)
[2024-12-09] MEDS: POTASSIUM CHLORIDE 20 mEq TABCR PO (08:22)
--- NOTE | 2024-12-09 09:46 | PC.SS ---
Patient needs a trilogy for home. The patient needs a mechanical ventilator due to chronic respiratory failure due to severe COPD. The patient needs to keep tidal volume and prevent CO2 retention. Ventilator is required to improve pulmonary status. Without this respiratory support, in home could lead to serious harm or . BiPAP therapy failed.
--- NOTE | 2024-12-09 11:12 | PC.SS ---
Addendum entered by Gini Yao 12/09/24 14:58: SS confirmed with [facility] they will coordinate with on delivery. SS will update floor nurse for d/c. Original Note: Follow up note: SS submitted trilogy order to [facility] for review and delivery. SS verified with patient's the actual d/c address. If patient receives trilogy unit, physician team may d/c home today. Patient being transferred from tele to med/surg.
--- NOTE | 2024-12-09 14:09 | ESDS_ITS ---
Planned Discharge Date 12/09/24 DS: Providers Provider Date of admission: 12/04/24 15:03 Primary care physician: Harry Dc MD Admitting Provider: Barbi Mcmillan DO Attending Provider on Admission: Barbi Mcmillan DO Consults: 12/04/24 15:09 Consult to Cardiology Routine Comment: Possible CHF acute Consulting Provider: Harry Dc 12/04/24 16:11 Referral Physical Therapy Routine Comment: Physician Instructions: Attending Provider on DC: Sigifredo Lara MD Discharging Provider: Felix Padilla MD Anticipated date of discharge: 12/09/24 DS: Diagnosis Problem List Completed Was Problem List Reviewed/Reconciled?: Yes Hospital Course Hospital Course Hospital course: 79-year-old male with past medical history of COPD, hypertension, atrial fibrillation who presented to the ED due to progressive shortness of breath. Associated with orthopnea, dyspnea on minimal exertion. Patient was admitted for new onset congestive heart failure. During hospital stay patient was managed with aggressive diuresis, fluid restriction, and and outs, daily weights. Cardiology was consulted recommended echocardiogram which was done and resuming patient's home anticoagulation for patient's atrial fibrillation. Patient history of COPD and suspected community-acquired pneumonia for which antibiotic therapy was ordered as well as breathing treatments. Patient needs mechanical ventilator for chronic respiratory failure in setting of a COPD. Patient does require days to maintain tidal volumes and prevent CO2 retention. This is required to maintain and improve patient's pulmonary status. Without this respiratory support at home patient may have serious harm and even as patient has failed BiPAP therapy already. At this time patient is medically stable for discharge. Patient recommended to follow-up with primary care physician within 1 week of discharge. Recommended to follow-up with teletype adjuster Dr. Decker within 2 weeks of discharge. Patient recommended to continue anticoagulation with Eliquis for patient's atrial fibrillation. Patient should take his medications as prescribed. Combination pill amlodipine benazepril was discontinued and patient was prescribed lisinopril 20 mg daily and amlodipine 10 mg daily. Should any symptoms recur or worsen patient is instructed to return to the ED. Problem List: #New onset CHF #COPD #Chronic respiratory failure #Early pneumonia #Hypertension #Chronic Atrial-fibrillation #Chronic back pain Case discussed with my attending Dr. Marco Padilla MD PGY-1 Status at Discharge Functional status at discharge: independent ambulation Overall status at discharge: patient is progressing back to baseline Time Spent with Patient Time attestation: Total time spent providing and/or coordinating discharge services: Time spent: Greater than 30 minutes Exam Vital Signs Temp Pulse Resp BP Pulse Ox O2 Del Method O2 Flow Rate 97.2 F 70 17 130/91 H 99 Nasal Cannula 2 12/09/24 08:00 12/09/24 08:14 12/09/24 08:00 12/09/24 08:14 12/09/24 08:00 12/09/24 08:00 12/09/24 08:00 FiO2 30 12/09/24 02:38 Narrative Exam Physical Exam GENERAL: NAD, AAOx3, obese HEENT: Moist mucosa. Eyes open, symmetrical, & clear CARDIO: Heart RRR, no obvious murmurs PULM: No noted coughing/dyspnea CTA B/L, however examination limited due to body habitus GI: Abdomen soft, nondistended, no pain on palpation. BSx4 SKIN/MSK/EXT: bruising in B/L lower extremities, and RUE, trace edema, Pedal pulses present B/L NEURO: AAOx3, no focal neuro deficits, able to move all 4 extremities Discharge Plan Plan Patient Disposition: HOME (Self Care) Disposition Comment: Stable Care Plan Goals: follow up with primary care physician within 1 week of discharge Follow up with [employer] Dr. Dc within 2 weeks of discharge please take all medications as prescribed Should any symptoms recur or worsen patient is instructed to return to the ED. Prescriptions/Referrals Prescriptions/Med Rec: New Eliquis 2.5 mg Tablet 5 mg PO BID Qty: 30 0RF amlodipine 10 mg tablet 10 mg PO QDAY Qty: 30 0RF amoxicillin-pot clavulanate 875-125 mg tablet 1 tab PO BID 3 Days Qty: 6 0RF Continued metoprolol tartrate 100 mg Tablet 100 mg PO BID lisinopril 20 mg Tablet 20 mg PO QDAY Breztri Aerosphere 160-9-4.8 mcg/actuation HFA aerosol inhaler 2 inh inhalation BID Discontinued amlodipine-benazepril 5-10 mg Capsule 10 mg PO QDAY prednisone 50 mg tablet 50 mg PO QDAY Qty: 5 0RF Referrals: Harry Dc MD [Primary Care Provider] - Patient/Caregiver Discharge Instructions Education Materials: What Is COPD?, Discharge Instructions: COPD, Diagnosing COPD Print Language: French Stand Alone Forms: Lisseth Award Info., Patient Portal Info Letter Discharge Order Discharge Orders: Discharge (Routine); Ordered 12/09/24 Ordered By: Felix Padilla Quality Discharge Quality Measures VTE prophylaxis
[2024-12-09 15:29] LABS: Basophils # (Auto) 0.1 Thou/mm3 (0.0-0.2); Basophils % (Auto) 1 % (0-2.5); Eosinophils # (Auto) 0.4 Thou/mm3 (0.0-0.5); Eosinophils % (Auto) 2 % (0-10); Hematocrit 45.6 % (41.0-53.0); Immature Granulocytes % (Auto) 3 % (0-0); Immature Granulocytes Auto 0.58 Thou/mm3 (0.00-0.00); Lymphocytes # (Auto) 1.9 Thou/mm3 (1.0-4.8); Lymphocytes % (Auto) 11 % (10-50); Mean Corpuscular HGB Conc 32.9 g/dl (31.0-37.0); Mean Corpuscular Hemoglobin 32.2 pg (25.0-35.0); Mean Corpuscular Volume 98 fL (80-100); Monocytes # (Auto) 2.2 Thou/mm3 (0.0-0.8); Monocytes % (Auto) 13 % (0-12); Neutrophils # (Auto) 11.8 Thou/mm3 (1.8-7.7); Neutrophils % (Auto) 69 % (37-80); Nucleated Red Blood Cell % 0 /100 WBC (0); Platelet Count 193 Thou/mm3 (140-440); RDW Standard Deviation 53.8 fL (35.1-43.9); Red Blood Count 4.66 Miln/mm3 (4.50-5.90)
[2024-12-09 15:54] LABS: Alanine Aminotransferase 35 U/L (10-49); Albumin, Serum 3.8 gm/dL (3.4-4.8); Albumin/Globulin Ratio 1.7 (1.2-2.2); Alkaline Phosphatase 61 U/L (46-116); Anion Gap 7 (7-16); Aspartate Amino Transferase 32 U/L (0-34); BUN/Creatinine Ratio 26 Ratio (12-20); Bilirubin,Total 1.3 mg/dL (0.3-1.2); Blood Urea Nitrogen 21 mg/dL (9-23); Calcium 8.4 mg/dL (8.3-10.6); Calcium (Corrected) 8.6 mg/dL (8.5-10.1); Carbon Dioxide 30.6 mMol/L (20.0-31.0); Chloride 102 mMol/L (98-107); Creatinine (Component) 0.8 mg/dL (0.6-1.3); Estimated Creatinine Clearance 107.7 mL/min (>60); Globulin 2.2 gm/dL (2.3-3.5); Glucose 122 mg/dL (74-106); Osmolality,Calculated 283 (275-295); Potassium 4.2 mMol/L (3.4-5.1); Sodium 140 mMol/L (136-145); eGFR > 60 See Note
--- NOTE | 2024-12-11 14:31 | PC.SS ---
SS received a call from indicating she was having a hard time with spouse. She needs more support. SS asked physician to see if they can put in an order for Home Health Services. PT notes did not recommend services at time of admission. Home health order placed. SS updated patient's of alternate option to SNF if she would like. declined again. verbalized she preferred HH. SS explained it could take up to 24-36 hours. is agreeable. [facility] D/c addres: [phone] [place], [place] SS updated transfer nruse as well.
--- NOTE | 2024-12-11 15:07 | PC.CC ---
Referrals sent to all agencies, no preferred agency documented
--- NOTE | 2024-12-11 15:12 | PC.CC ---
Pt booked with [facility] pending [facility]
--- NOTE | 2024-12-15 10:46 | PC.CM ---
I received a message today from [facility] stating patient was opened on 12/13.
== END 2024-12-09 20:09 | disposition home or self-care (01) | DRG 291 ==
LOC: SERX 14:06 → SERHOLD 15:17 → S2NX 23:15 → S3SX 12-09 10:35
PROVIDERS: Nurse Practitioner Family; Admitting Provider Internal Medicine; Emergency Provider Emergency Medicine; PCP Internal Medicine Cardiovascular Disease; Visit Provider Internal Medicine
DX: I11.0 Hypertensive heart disease with heart failure (principal); J18.9 Pneumonia, unspecified organism; J44.0 Chronic obstructive pulmonary disease with (acute) lower respiratory infection; J44.1 Chronic obstructive pulmonary disease with (acute) exacerbation; E87.4 Mixed disorder of acid-base balance; I48.20 Chronic atrial fibrillation, unspecified; J96.10 Chronic respiratory failure, unspecified whether with hypoxia or hypercapnia; I50.9 Heart failure, unspecified; G89.29 Other chronic pain; K59.03 Drug induced constipation; R29.6 Repeated falls; T40.2X5A Adverse effect of other opioids, initial encounter; Z79.891 Long term (current) use of opiate analgesic; Z79.899 Other long term (current) drug therapy; Z79.01 Long term (current) use of anticoagulants
CPT/HCPCS: 36415; 36600; 71045; 76705; 80053; 82248; 82803; 83605; 83735; 83880; 84100; 84145; 84484; 85025; 85610; 85730; 86140; 87400; 87502; 87634; 87811; 93005; 93306; 94640; 94644; 94660; 94664; 96365; 96366; 96367; 96372; 96375; 97162; 99285; A9270; J0360; J0456; J0696; J1100; J1938; J2270; J2919; J3105; J3475; J3490; J7050; J1920

== ENCOUNTER → 2025-01-07 | Outpatient (CLI) | payer OTHER, MEDICARE, SELFPAY ==
[2025-01-07 13:01] LABS: Albumin, Serum 4.1 gm/dL (3.4-4.8); Anion Gap 13 (7-16); BUN/Creatinine Ratio 28 Ratio (12-20); Blood Urea Nitrogen 22 mg/dL (9-23); Calcium 8.6 mg/dL (8.3-10.6); Calcium (Corrected) 8.6 mg/dL (8.5-10.1); Chloride 100 mMol/L (98-107); Creatinine (Component) 0.8 mg/dL (0.6-1.3); Glucose 118 mg/dL (74-106); Osmolality,Calculated 293 (275-295); Phosphorous 3.2 mg/dL (2.4-5.1); Sodium 145 mMol/L (136-145); eGFR > 60 See Note
[2025-01-07 13:03] LABS: B-Type Natriuretic Peptide 532 pg/mL (0-100)
== END | disposition home or self-care (01) ==
PROVIDERS: Referring Provider Internal Medicine Cardiovascular Disease; Visit Provider Internal Medicine Cardiovascular Disease
DX: I25.118 Atherosclerotic heart disease of native coronary artery with other forms of angina pectoris (principal); I11.0 Hypertensive heart disease with heart failure; I50.9 Heart failure, unspecified
CPT/HCPCS: 36415; 80069; 83880

== ENCOUNTER 2025-01-23 14:12 | Emergency (ER) | payer OTHER, SELFPAY ==
[2025-01-23] VITALS (7 sets, daily range): BP systolic 165–192; BP diastolic 83–140; PULSE 64–74; RESP 16–20; TEMP 36.6–37.2; O2SAT 95–99; BMI 36.9
--- NOTE | 2025-01-23 14:27 | PD.EDSOB ---
ED SOB =RME/HPI General Chief Complaint: Shortness of Breath/Dyspnea Stated Complaint: SHORTNESS OF BREATH Time Seen by Provider: 01/23/25 14:56 Arrival date/time: 01/23/25 14:12 RME / HPI RME / HPI Narrative: DR. MORSE MAIN ED EVALUATION: This section includes all my notes and documentations, including HPI, PE, and ED course.? Fred Morse MD HPI: 79 year old male with past medical history significant for COPD, hypertension, and atrial fibrillation presents to the Emergency Department [facility] with persistent dyspnea and leg swelling for a month since being hospitalized here a month ago. No chest pain. No fever. No other complaints. ROS: All negative except as documented in HPI. Physical Exam: General:? Alert and oriented.? No acute distress. Eyes:? Conjunctivae and lids clear. ENT:? No nasal congestion.? ? Neck:? Supple. Heart: Irregularly irregular (66 bpm). Lungs: No respiratory distress noted. Mildly decreased air movement with wheezing and rales. Abdomen:? Soft and nontender.? Legs: Moderate bilateral lower leg edema. Skin:? Warm and dry.? Neuro:? Alert and oriented X 3.? I reviewed all diagnostic test results. My interpretation of the EKG is: Atrial fibrillation (66 bpm) with nonspecific ST-T changes. My interpretation of the chest x-ray is increased vascular congestion and infiltrates. Blood tests and urine tests remarkable for WBC 11.4 and BNP 760. COVID/influenza negative. At this point, diagnoses include CHF, COPD, and pneumonia. Treatment here included Solu-Medrol, DuoNeb, Zithromax, Rocephin, Lasix, morphine, and topical NTG. Significant improvement noted. Recommend outpatient management. Based on my best medical judgment, made decision no further evaluation or treatment indicated at this time.? Patient understands and agrees to the discharge instructions customized and printed, see below. Discharge instructions from Dr. Morse: --No physical exertion for 3 days to help rest the lungs. ?No smoking or exposure to smoking or pets or dust or cold or humidity. --Zithromax and cefdinir to kill the germs causing the pneumonia. --Prednisone to help decrease the swelling in the airways. -- Neb treatment every 4-6 hours for 3 days to help keep the airways open. Then as needed for cough or shortness of breath. --Take 3 Lasix pills every morning. Lasix can lower potassium level so eat a banana daily. --Limit all fluid intake to 4 cups per 24 hours. --Decrease salt intake. --When resting or sitting or sleeping, elevate head of bed. And elevate both feet/ankles above your waist level. This is extremely important to get the extra fluid back into your circulation so you can urinate out the extra fluid. --See a private doctor on 01/27/2025 for recheck and further care. Ask to review all test results and official radiology reports, to make sure you receive all necessary follow-ups and monitoring. Ask for help until you are completely better. --Seek immediate medical care with worsening or with any concerns. Fred Morse MD Related Data Home Medications ?Medication ?Instructions ?Recorded ?Confirmed metoprolol tartrate 100 mg tablet 100 mg PO BID 05/19/19 12/04/24 lisinopril 20 mg tablet 20 mg PO QDAY 03/01/24 12/04/24 budesonide 160 mcg-glycopyr 9 2 inh inhalation BID 12/04/24 12/04/24 mcg-formot 4.8 mcg/actuation HFA inhaler (Breztri Aerosphere) Previous Rx's ?Medication ?Instructions ?Recorded amlodipine 10 mg tablet 10 mg PO QDAY #30 tabs 12/09/24 apixaban 2.5 mg tablet (Eliquis) 5 mg (2 x 2.5 mg) PO BID #30 tabs 12/09/24 azithromycin 500 mg tablet 500 mg PO QDAY 3 days #3 tabs 01/23/25 (Zithromax TRI-MAT) cefdinir 300 mg capsule 300 mg PO BID #14 caps 01/23/25 prednisone 50 mg tablet 50 mg PO QDAY #3 tabs 01/23/25 Allergies Allergy/AdvReac Type Severity Reaction Status Date / Time No Known Allergies Allergy Verified 03/01/24 16:00 Course Quality Measures none Orders Category Date Time Status Bedside COVID-19 Antigen Test NOW Care 01/23/25 14:32 Completed Bedside Influenza A&B Antigen Test NOW Care 01/23/25 14:32 Completed EKG (ED ONLY) *Do not use* NOW Care 01/23/25 14:33 Completed Turner [Urinary Catheter] QS Care 01/23/25 15:08 Completed Saline [Insert IV] NOW Care 01/23/25 14:32 Completed Straight [In and Out Catheter] X1 Care 01/23/25 14:32 Completed EKG (ED Only) Stat Exams 01/23/25 14:33 Draft XR chest 1V portable Stat Exams 01/23/25 14:33 Completed BNP [B-Type Natriuretic Peptide] Stat Lab 01/23/25 15:05 Completed Bilirubin,Direct Stat Lab 01/23/25 15:05 Completed CBC Stat Lab 01/23/25 15:05 Completed CMP [Comprehensive Metabolic Panel] Stat Lab 01/23/25 15:05 Completed D-Dimer Stat Lab 01/23/25 15:05 Completed Free T4 (Free Thyroxine) Stat Lab 01/23/25 15:05 Completed Magnesium Stat Lab 01/23/25 15:05 Completed PT [Prothrombin Time with INR] Stat Lab 01/23/25 15:05 Completed PTT [Partial Thromboplastin Time] Stat Lab 01/23/25 15:05 Completed TSH [Thyroid Stimulating Hormone] Stat Lab 01/23/25 15:05 Completed Troponin I Stat Lab 01/23/25 15:05 Completed UA, C/S IF [Urinalysis, C/S if Indicated] Stat Lab 01/23/25 15:03 Completed Albuterol/Ipratr Rt Viridiana [Duoneb Rt Viridiana] Med 01/23/25 14:32 Discontinued 3 ml INH X1 ONE Azithromycin Inj [Zithromax Inj] 500 mg Med 01/23/25 15:43 Discontinued Sodium Chloride 0.9% 250 ml [Ns] 250 ml IV X1 Furosemide Inj [Lasix Inj] Med 01/23/25 15:27 Discontinued 80 mg IVP X1 ONE MethylPREDNISolone.* [SoluMEDROL Inj] Med 01/23/25 14:32 Discontinued 125 mg IVP X1 ONE Morphine Inj Med 01/23/25 15:27 Discontinued 2 mg IVP X1 ONE Nitroglycerin Oint 2% [Nitro-paste Oint 2%] Med 01/23/25 15:27 Discontinued 2 inch TOP X1 ONE cefTRIAXone/D5w 1gm IV premix [Rocephin/D5w 1gm IV Med 01/23/25 15:43 Discontinued premix] 1 gm in 50 ml IV X1 Vital Signs Vital signs: Vital Signs Temperature 97.9 F 01/23/25 14:21 Pulse Rate 68 01/23/25 14:21 Respiratory Rate 17 01/23/25 14:21 Blood Pressure 186/85 H 01/23/25 14:21 Pulse Oximetry (%) 99 01/23/25 14:21 Oxygen Delivery Method Room Air 01/23/25 14:21 Shortness of Breath / Dyspnea MDM Narrative MDM Narrative:: I, Gena Henao, am scribing for and in the presence of Dr. Morse. Patient data External records reviewed:: [facility] previous records and EMS form Clinical information provided by:: patient and EMS Social determinants that could affect healthcare access:: none Patient has the following chronic illnesses:: COPD, hypertension, and atrial fibrillation How is presenting disease/condition affected by chronic disease/condition?: exacerbated by Evaluation data The following diagnostics were reviewed and interpreted by me:: lab results, radiology exam(s) and EKG tracing(s) (My interpretation of the EKG is: Atrial fibrillation (66 bpm) with nonspecific ST-T changes. Fred Morse MD) Lab and/or radiology exams considered but not ordered:: none Interpretation Summary: I reviewed all diagnostic test results. My interpretation of the EKG is: Atrial fibrillation (66 bpm) with nonspecific ST-T changes. My interpretation of the chest x-ray is increased vascular congestion and infiltrates. Blood tests and urine tests remarkable for WBC 11.4 and BNP 760. COVID/influenza negative. Medications / Prescriptions Medications or Prescriptions considered but not ordered:: none Medication administrations:: Medication Administration History Discontinued Medications Albuterol/Ipratropium (Albuterol/Ipratropium (Duoneb) Rt Viridiana 3 Ml Nebu) 3 ml INH X1 ONE Stop: 01/23/25 14:33 Last Admin: 01/23/25 15:20 Dose: 3 ml Documented By: HERBERT Furosemide (Furosemide Inj 10 Mg/Ml 4ml Vial) 80 mg IVP X1 ONE Stop: 01/23/25 15:28 Last Admin: 01/23/25 15:35 Dose: 80 mg Documented By: EF Azithromycin 500 mg/ Sodium (Chloride) 250 mls @ 250 mls/hr IV X1 ONE Stop: 01/23/25 16:42 Last Infusion: 01/23/25 17:23 Dose: Infused Documented By: Admin: 01/23/25 16:23 Dose: 250 mls/hr Documented By: EF Ceftriaxone Sodium/Dextrose (Rocephin/D5w 1gm Iv Premix) 1 gm in 50 mls @ 100 mls/hr IV X1 ONE Stop: 01/23/25 16:12 Last Infusion: 01/23/25 16:32 Dose: Infused Documented By: Admin: 01/23/25 16:02 Dose: 100 mls/hr Documented By: EF Methylprednisolone Sodium Succinate (Methylprednisolone Sod Succ 62.5 Mg/Ml 2ml Vial) 125 mg IVP X1 ONE Stop: 01/23/25 14:33 Last Admin: 01/23/25 15:17 Dose: 125 mg Documented By: EF Morphine Sulfate (Morphine Sulf Inj 10 Mg/Ml Vial) 2 mg IVP X1 ONE Stop: 01/23/25 15:28 Last Admin: 01/23/25 15:35 Dose: 2 mg Documented By: EF Nitroglycerin (Nitroglycerin Oint 2% 1 Inch Packet) 2 inch TOP X1 ONE Stop: 01/23/25 15:28 Last Admin: 01/23/25 15:36 Dose: 2 inch Documented By: EF Treatment here included Solu-Medrol, DuoNeb, Zithromax, Rocephin, Lasix, morphine, and topical NTG. Consultations Consultation(s) initiated? (list below): No Diagnosis Shortness of Breath Differential Diagnosis: acute exacerbation of chronic obstructive airways disease, congestive heart failure, community acquired pneumonia, asthma with exacerbation and pulmonary embolism Most likely diagnosis given after review of the tests above:: At this point, diagnoses include CHF, COPD, and pneumonia. Admission Indicated Admission indicated?: not indicated Explain why admission is indicated or not indicated:: With significant improvement, there was no indication for admission. Admission Request Was there a request for admission?: No Disposition Plan Disposition Plan: Discharge Discharge Attestation Discharge Attestation: The patient and all family members were given an opportunity to ask questions and understood the discharge instructions. Discharge instructions specifically effects, indications for sooner follow up or return to the emergency department, and the expected course of current diagnosis. Patient condition: Stable Discharge Plan Plan Patient Disposition: HOME (Self Care) Prescriptions/Referrals Prescriptions/Med Rec: New prednisone 50 mg tablet 50 mg PO QDAY Qty: 3 0RF cefdinir 300 mg capsule 300 mg PO BID Qty: 14 0RF azithromycin [Zithromax TRI-MAT] 500 mg tablet 500 mg PO QDAY 3 Days Qty: 3 0RF No Action metoprolol tartrate 100 mg Tablet 100 mg PO BID lisinopril 20 mg Tablet 20 mg PO QDAY Breztri Aerosphere 160-9-4.8 mcg/actuation HFA aerosol inhaler 2 inh inhalation BID Eliquis 2.5 mg Tablet 5 mg PO BID Qty: 30 0RF amlodipine 10 mg tablet 10 mg PO QDAY Qty: 30 0RF Referrals: Usman Moreira [Primary Care Provider] - In 1 week Problem List Clinical Impression: Pneumonia, CHF (congestive heart failure), COPD (chronic obstructive pulmonary disease) Patient/Caregiver Discharge Instructions Discharge Activity: activity as tolerated Education Materials: ED CHF Left Side, ED COPD Flare, ED Pneumonia (Adult) Additional Instructions: Discharge instructions from Dr. Morse: --No physical exertion for 3 days to help rest the lungs. ?No smoking or exposure to smoking or pets or dust or cold or humidity. --Zithromax and cefdinir to kill the germs causing the pneumonia. --Prednisone to help decrease the swelling in the airways. -- Neb treatment every 4-6 hours for 3 days to help keep the airways open. Then as needed for cough or shortness of breath. --Take 3 Lasix pills every morning. Lasix can lower potassium level so eat a banana daily. --Limit all fluid intake to 4 cups per 24 hours. --Decrease salt intake. --When resting or sitting or sleeping, elevate head of bed. And elevate both feet/ankles above your waist level. This is extremely important to get the extra fluid back into your circulation so you can urinate out the extra fluid. --See a private doctor on 01/27/2025 for recheck and further care. Ask to review all test results and official radiology reports, to make sure you receive all necessary follow-ups and monitoring. Ask for help until you are completely better. --Seek immediate medical care with worsening or with any concerns. Print Language: Chinese Stand Alone Forms: Lisseth Award Info., Patient Portal Info Letter
--- NOTE | 2025-01-23 14:33 | EKG_ITS ---
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
--- NOTE | 2025-01-23 14:33 | XR_ITS ---
Examination: AP chest single view Technique one AP portable upright chest single view Date and time: 09/25/2024 1515 hours INDICATIONS: Shortness of breath weakness and chest pain today FINDINGS: Mild prominence cardiac contour Ectatic thoracic aorta Moderate vascular congestion Opacity right base obscuring detail lateral portion right hemidiaphragm with blunting of the costophrenic angle IMPRESSION: Moderate vascular congestion Pneumonia right base
[2025-01-23 15:09] LABS: Collection Type, Urine Clean Catch; Squamous Epithelial Cell,Urine 0 /hpf (0-5)
[2025-01-23 15:12] LABS: Basophils # (Auto) 0.1 Thou/mm3 (0.0-0.2); Basophils % (Auto) 1 % (0-2.5); Eosinophils # (Auto) 0.2 Thou/mm3 (0.0-0.5); Eosinophils % (Auto) 2 % (0-10); Hematocrit 37.3 % (41.0-53.0); Hemoglobin 12.7 g/dL (13.5-16.0); Immature Granulocytes % (Auto) 2 % (0-0); Immature Granulocytes Auto 0.27 Thou/mm3 (0.00-0.00); Lymphocytes # (Auto) 1.6 Thou/mm3 (1.0-4.8); Lymphocytes % (Auto) 14 % (10-50); Mean Corpuscular Hemoglobin 31.9 pg (25.0-35.0); Mean Corpuscular Volume 94 fL (80-100); Monocytes # (Auto) 1.3 Thou/mm3 (0.0-0.8); Monocytes % (Auto) 12 % (0-12); Neutrophils # (Auto) 7.8 Thou/mm3 (1.8-7.7); Neutrophils % (Auto) 69 % (37-80); Nucleated Red Blood Cell % 0 /100 WBC (0); Platelet Count 189 Thou/mm3 (140-440); RDW Standard Deviation 50.4 fL (35.1-43.9); Red Blood Count 3.98 Miln/mm3 (4.50-5.90); White Blood Count 11.4 Thou/mm3 (3.8-10.6)
[2025-01-23 15:14] LABS: Bilirubin,Urine Negative (Negative); Blood,Urine 1+ (Negative); Clarity,Urine Clear (Clear/Hazy); Color,Urine Colorless (Lt Yel-Yel); Culture Indicated,Urine Not Indicated; Glucose, Urine Negative (Negative); Hyaline Casts,Urine < 1 /hpf (0-1); Ketones,Urine Negative (Negative); Leukocyte Esterase,Urine Negative (Negative); Nitrite,Urine Negative (Negative); Protein,Urine Negative (Neg - Trace); RBC,Urine 6 /hpf (0-3); Specific Gravity,Urine 1.009 (1.001-1.035); Urobilinogen,Urine Negative mg/dL (0.0-1.0); WBC,Urine < 1 /hpf (0-5)
[2025-01-23] MEDS: MethylPREDNISolone SOD SUCC 62.5 MG/ML 2ML VIAL 125 MG IVP (15:17)
[2025-01-23] MEDS: ALBUTEROL/IPRATROPIUM (Duoneb) RT SOL 3 ML NEBU INH (15:20)
--- NOTE | 2025-01-23 15:24 | PC.RT ---
explained to pt doctor ordered a ABG. pt states he is refusing the blood draw at this time.
[2025-01-23 15:31] LABS: D-Dimer < 250 ng/mL (<600)
[2025-01-23] MEDS: MORPHINE SULF INJ 10 MG/ML VIAL 2 MG IVP (15:35)
[2025-01-23] MEDS: FUROSEMIDE INJ 10 MG/ML 4ML VIAL 80 MG IVP (15:35)
[2025-01-23] MEDS: NITROGLYCERIN OINT 2% 1 INCH PACKET 2 INCH TOP (15:36)
[2025-01-23 15:38] LABS: INR 1.1 (0.9-1.3); Prothrombin Time 11.8 Seconds (9.0-12.2)
[2025-01-23 15:42] LABS: B-Type Natriuretic Peptide 760 pg/mL (0-100)
[2025-01-23 15:53] LABS: Alanine Aminotransferase 10 U/L (10-49); Albumin, Serum 4.2 gm/dL (3.4-4.8); Albumin/Globulin Ratio 2.1 (1.2-2.2); Alkaline Phosphatase 67 U/L (46-116); Anion Gap 6 (7-16); Aspartate Amino Transferase 17 U/L (0-34); BUN/Creatinine Ratio 15 Ratio (12-20); Bilirubin,Direct 0.3 mg/dL (0.0-0.3); Bilirubin,Total 0.8 mg/dL (0.3-1.2); Blood Urea Nitrogen 12 mg/dL (9-23); Calcium 9.1 mg/dL (8.3-10.6); Calcium (Corrected) 9.1 mg/dL (8.5-10.1); Carbon Dioxide 30.1 mMol/L (20.0-31.0); Chloride 104 mMol/L (98-107); Creatinine (Component) 0.8 mg/dL (0.6-1.3); Free T4 (Free Thyroxine) 1.21 ng/dL (0.89-1.76); Glucose 117 mg/dL (74-106); Magnesium 1.9 mg/dL (1.6-2.6); Osmolality,Calculated 280 (275-295); Potassium 4.3 mMol/L (3.4-5.1); Sodium 140 mMol/L (136-145); Thyroid Stimulating Hormone 1.37 uIU/mL (0.55-4.78); Total Protein 6.2 gm/dL (5.7-8.2); Troponin I < 0.020 ng/mL (0.0-0.045); eGFR > 60 See Note
[2025-01-23] MEDS: cefTRIAXone/D5w 1gm IV premix 1 GM/50 ML BAG IV (16:02)
[2025-01-23] MEDS: AZITHROMYCIN INJ 500 MG in SODIUM CHLORIDE 0.9% 250 ML 250 ML 250 MG IV (16:23)
== END 2025-01-23 17:41 | disposition home or self-care (01) ==
PROVIDERS: Emergency Provider Emergency Medicine; PCP Physician Assistant
DX: J44.0 Chronic obstructive pulmonary disease with (acute) lower respiratory infection (principal); J18.9 Pneumonia, unspecified organism; I11.0 Hypertensive heart disease with heart failure; I50.9 Heart failure, unspecified; I48.91 Unspecified atrial fibrillation; Z79.01 Long term (current) use of anticoagulants
CPT/HCPCS: 51702; 36415; 36600; 71045; 80053; 81001; 82248; 82803; 83735; 83880; 84439; 84443; 84484; 85025; 85379; 85610; 85730; 87400; 87811; 93005; 94640; 96365; 96367; 96375; 96376; 99284; A4314; A9270; J0456; J0696; J1938; J2270; J2919; J7050

== ENCOUNTER 2025-03-17 08:04 | Inpatient (IN) | payer MEDICARE, OTHER, SELFPAY ==
[2025-03-17] VITALS (25 sets, daily range): BP systolic 163–205; BP diastolic 90–143; PULSE 63–98; RESP 12–30; TEMP 36.5–36.7; O2SAT 96–100; BMI 42.1
--- NOTE | 2025-03-17 08:14 | XR_ITS ---
Examination: AP chest single view Technique one AP portable upright chest single view Date and time: March 17, 2025 0818 hours Comparison 09/25/2024 INDICATIONS: SOB today FINDINGS: Significant pneumonia right base Mild heart failure with enlargement cardiac contour vascular congestion and perihilar edema Moderate osteopenia IMPRESSION: Significant right base pneumonia Mild heart failure.
--- NOTE | 2025-03-17 08:14 | EKG_ITS ---
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
[2025-03-17] MEDS: MethylPREDNISolone SOD SUCC 62.5 MG/ML 2ML VIAL 125 MG IV (08:42)
[2025-03-17 08:47] LABS: Basophils # (Auto) 0.1 Thou/mm3 (0.0-0.2); Basophils % (Auto) 1 % (0-2.5); Eosinophils # (Auto) 0.2 Thou/mm3 (0.0-0.5); Eosinophils % (Auto) 1 % (0-10); Hematocrit 46.6 % (41.0-53.0); Hemoglobin 15.2 g/dL (13.5-16.0); Immature Granulocytes Auto 0.26 Thou/mm3 (0.00-0.00); Lymphocytes # (Auto) 3.4 Thou/mm3 (1.0-4.8); Lymphocytes % (Auto) 21 % (10-50); Mean Corpuscular HGB Conc 32.6 g/dl (31.0-37.0); Mean Corpuscular Hemoglobin 31.0 pg (25.0-35.0); Mean Corpuscular Volume 95 fL (80-100); Monocytes # (Auto) 1.6 Thou/mm3 (0.0-0.8); Monocytes % (Auto) 10 % (0-12); Neutrophils # (Auto) 10.6 Thou/mm3 (1.8-7.7); Neutrophils % (Auto) 66 % (37-80); Nucleated Red Blood Cell # 0.00 Thou/mm3 (0.00-0.00); Nucleated Red Blood Cell % 0 /100 WBC (0); Platelet Count 229 Thou/mm3 (140-440); RDW Standard Deviation 48.8 fL (35.1-43.9); Red Blood Count 4.90 Miln/mm3 (4.50-5.90); White Blood Count 16.2 Thou/mm3 (3.8-10.6)
[2025-03-17] MEDS: ALBUTEROL RT 2.5 MG/0.5 ML NEBU 10 MG INH (08:58)
[2025-03-17 08:59] LABS: INR 1.2 (0.9-1.3); Partial Thromboplastin Time 29.3 Seconds (22.0-36.0); Prothrombin Time 12.7 Seconds (9.0-12.2)
[2025-03-17] MEDS: IPRATROPIUM RT 0.5 MG/ 2.5 ML NEBU INH (08:59)
[2025-03-17 09:11] LABS: Alanine Aminotransferase 10 U/L (10-49); Albumin, Serum 4.4 gm/dL (3.4-4.8); Albumin/Globulin Ratio 2.0 (1.2-2.2); Alkaline Phosphatase 62 U/L (46-116); Anion Gap 10 (7-16); Aspartate Amino Transferase 20 U/L (0-34); BUN/Creatinine Ratio 14 Ratio (12-20); Bilirubin,Total 1.2 mg/dL (0.3-1.2); Blood Urea Nitrogen 14 mg/dL (9-23); Calcium 9.1 mg/dL (8.3-10.6); Calcium (Corrected) 9.1 mg/dL (8.5-10.1); Carbon Dioxide 29.6 mMol/L (20.0-31.0); Chloride 100 mMol/L (98-107); Creatinine (Component) 1.0 mg/dL (0.6-1.3); Estimated Creatinine Clearance 90.1 mL/min (>60); Globulin 2.2 gm/dL (2.3-3.5); Glucose 181 mg/dL (74-106); Magnesium 1.8 mg/dL (1.6-2.6); Osmolality,Calculated 284 (275-295); Potassium 4.3 mMol/L (3.4-5.1); Sodium 140 mMol/L (136-145); Total Protein 6.6 gm/dL (5.7-8.2); Troponin I < 0.020 ng/mL (0.0-0.045); eGFR > 60 See Note
--- NOTE | 2025-03-17 09:15 | PD.EDSOB ---
ED SOB =RME/HPI General Chief Complaint: Shortness of Breath/Dyspnea Stated Complaint: SOB Time Seen by Provider: 03/17/25 08:14 Arrival date/time: 03/17/25 08:04 RME / HPI RME / HPI Narrative: 79 year old male with history of atrial fibrillation, hypertension, COPD, asthma presents to the ED BIBA from home for evaluation of shortness of breath beginning yesterday morning. Described feeling he is not getting enough air and through the night administered a total of 6 breathing treatments with no relief. States this morning had very minimal relief with use of his BiPAP machine. Per medics, on scene patient appears ashen and tachypneic, was saturating 94% on BiPAP. On lung auscultation had decreased breath sounds. Patient was placed on CPAP and given 3 rounds of Albuterol breathing treatments with minimal relief. On arrival to ED, patient is saturating 98% on CPAP. Patient only complains of shortness of breath and pain to his legs and back. Denies any chest pain or cough. Denies fevers, chills, sore throat, n/v/d, abdominal pain. Denies any sick contacts or recent travel. Related Data Home Medications ?Medication ?Instructions ?Recorded ?Confirmed metoprolol tartrate 100 mg tablet 100 mg PO BID 05/19/19 12/04/24 lisinopril 20 mg tablet 20 mg PO QDAY 03/01/24 12/04/24 budesonide 160 mcg-glycopyr 9 2 inh inhalation BID 12/04/24 12/04/24 mcg-formot 4.8 mcg/actuation HFA inhaler (Breztri Aerosphere) Previous Rx's ?Medication ?Instructions ?Recorded amlodipine 10 mg tablet 10 mg PO QDAY #30 tabs 12/09/24 apixaban 2.5 mg tablet (Eliquis) 5 mg (2 x 2.5 mg) PO BID #30 tabs 12/09/24 cefdinir 300 mg capsule 300 mg PO BID #14 caps 01/23/25 prednisone 50 mg tablet 50 mg PO QDAY #3 tabs 01/23/25 Allergies Allergy/AdvReac Type Severity Reaction Status Date / Time No Known Allergies Allergy Verified 03/01/24 16:00 Review of Systems Review of Systems Systems Reviewed: All systems reviewed, normal except as documented Past Medical History Past Medical History NEUROLOGIC: Positive Neurological Disorders and Peripheral Neuropathy CARDIAC: Positive Atrial Fibrillation, Hypercholesterolemia, Congestive Heart Failure, Edema and Hypertension RESPIRATORY: Positive Chronic Obstructive Pulmonary Disease (COPD) GASTROINTESTINAL: Positive Gastrointestinal Disorders and Obesity GENITOURINARY: Positive Renal Disease MUSCULOSKELETAL: Positive Arthritis and Degenerative Disk Disease ENT: Positive Cataracts OTHER HISTORY: Positive Falls Social History SMOKING STATUS: Never smoker ED Exam Narrative Physical exam: GENERAL APPEARANCE: alert and oriented x 4, well-developed, well-nourished, in respiratory distress HEENT: Normocephalic, atraumatic; EOMI; mucous membranes pink, moist; oropharynx clear NECK: Supple LUNGS: Diminished breath sounds L>R, scant wheezing, labored breathing, no rales, no rhonchi HEART: Regular rate, regular rhythm; normal S1, S2; no murmurs ABDOMEN: non distended; normal BS; soft, no tenderness, no guarding, no rebound BACK: no CVA tenderness EXTREMITIES: atraumatic; 3+ pitting edema to bilateral lower extremities NEUROLOGIC: awake; alert and oriented x4 PSYCHIATRIC: appropriate mood and affect SKIN: cool, dry, normal color; no rashes Course Course Course Narrative: Labs were reviewed, patient has elevated white count at 16, BNP 1,207. Chest xray shows right lower lobe pneumonia. I ordered antibiotics. The patient would benefit from admission and I will discuss with the hospitalist team. 1012: I spoke with residents working with Dr. Lara. Discussed patients PMHx, HPI, ED course, exam findings, labs, and radiology results. The hospitalist will evaluate the patient. Hospitalist accept the patient for admission. Quality Measures none Orders Category Date Time Status Bedside Blood Glucose NOW Care 03/17/25 08:14 Active Bedside COVID-19 Antigen Test NOW Care 03/17/25 10:07 Active COVID-19 Screening Questionnaire NOW Care 03/17/25 10:12 Active Snaker Tractor Driver NOW Care 03/17/25 08:14 Active Continuous Pulse Oximetry NOW Care 03/17/25 08:14 Completed Decision to Admit X1 Care 03/17/25 10:12 Completed EKG (ED ONLY) *Do not use* NOW Care 03/17/25 08:14 Completed Insert IV NOW Care 03/17/25 08:14 Active EKG (ED Only) Stat Exams 03/17/25 08:14 Draft XR chest 1V portable Stat Exams 03/17/25 08:14 Completed BNP [B-Type Natriuretic Peptide] Stat Lab 03/17/25 08:27 Completed CBC Stat Lab 03/17/25 08:27 Completed Comprehensive Metabolic Panel Stat Lab 03/17/25 08:27 Completed Influenza A & B Rapid Panel Stat Lab 03/17/25 10:08 Ordered Magnesium Stat Lab 03/17/25 08:27 Completed Partial Thromboplastin Time Stat Lab 03/17/25 08:27 Completed Procalcitonin Stat Lab 03/17/25 12:33 Completed Prothrombin Time with INR Stat Lab 03/17/25 08:27 Completed Troponin I Stat Lab 03/17/25 08:27 Completed VBG [Venous Blood Gas] Stat Lab 03/17/25 12:33 Completed ALBUTEROL RT 0.5ml [Proventil Rt 0.5ml] Med 03/17/25 08:14 Discontinued 10 mg INH X1 ONE Doxycycline Inj [Vibramycin Inj] 100 mg Med 03/17/25 10:09 Discontinued Sodium Chloride 0.9% (Pop) [NS 0.9% mini bag] 100 ml IV X1 Ipratropium [place] Rt Virid[place] [Atrovent Rt Viridiana] Med 03/17/25 08:14 Discontinued 0.5 mg INH X1 ONE MethylPREDNISolone.* [SoluMEDROL Inj] Med 03/17/25 08:14 Discontinued 125 mg IV X1 ONE Morphine Inj Med 03/17/25 10:08 Discontinued 4 mg IVP X1 ONE Sodium Chloride Rt [place] 0.9% [NS Rt [place] 0.9%] Med 03/17/25 08:14 Active 3 ml INH PRN PRN cefTRIAXone/D5w 1gm IV premix [Rocephin/D5w 1gm IV Med 03/17/25 10:10 Discontinued premix] 1 gm in 50 ml IV QDAY BiPAP / CPAP NOW RT 03/17/25 08:14 Active Vital Signs Vital signs: Vital Signs Temperature 97.7 F 03/17/25 08:14 Pulse Rate 87 03/17/25 08:14 Respiratory Rate 28 H 03/17/25 08:14 Blood Pressure 205/128 H 03/17/25 08:14 Pulse Oximetry (%) 100 03/17/25 08:14 Oxygen Delivery Method BiPAP 03/17/25 08:14 Shortness of Breath / Dyspnea MDM Narrative MDM Narrative:: IAmi am scribing for and in the presence of Dr. Oquendo. Patient data External records reviewed:: [facility] previous records (I reviewed admission from 12/04/2024 through 12/09/2024 for COPD exacerbation) and EMS form Clinical information provided by:: patient and EMS Social determinants that could affect healthcare access:: none Patient has the following chronic illnesses:: HTN, COPD, asthma, atrial fibrillation How is presenting disease/condition affected by chronic disease/condition?: exacerbated by Evaluation data The following diagnostics were reviewed and interpreted by me:: lab results, radiology exam(s) and EKG tracing(s) (03/17/2025 @ 08:52 AM. Atrial fibrillation, rate 75, no STEMI. ) Lab and/or radiology exams considered but not ordered:: None Interpretation Summary: Ordering Physician: Emelia Oquendo MD Date of Service: 03/17/25 Procedure(s): XR chest 1V portable Accession Number(s): [id number] cc: Usman Wakefield; Ant Mendez MD; Emelia Oquendo MD~ Examination: AP chest single view Technique one AP portable upright chest single view Date and time: March 17, 2025 0818 hours Comparison 09/25/2024 INDICATIONS: SOB today FINDINGS: Significant pneumonia right base Mild heart failure with enlargement cardiac contour vascular congestion and perihilar edema Moderate osteopenia IMPRESSION: Significant right base pneumonia Mild heart failure. Dictated By: Ant Mendez MD Signed By: <Electronically signed by Ant Mendez MD in [place]> 03/17/25 0955 Medications / Prescriptions Medications or Prescriptions considered but not ordered:: None Medication administrations:: Medication Administration History Acetaminophen (Acetaminophen 325 Mg Tablet) 650 mg PO Q6H PRN PRN Reason: Fever >101.5 or pain (1-3) Stop: 04/16/25 11:19 Albuterol/Ipratropium (Albuterol/Ipratropium (Duoneb) Rt [place] 3 Ml Nebu) 3 ml INH Q4HRRT YESSI Stop: 04/16/25 14:59 Albuterol/Ipratropium (Albuterol/Ipratropium (Duoneb) Rt [place] 3 Ml Nebu) 3 ml INH Q2HR PRN PRN Reason: SHORTNESS OF BREATH OR WHEEZE Stop: 04/16/25 12:00 Apixaban (Apixaban 2.5 Mg Tablet) 5 mg PO BID [facility] Stop: 04/16/25 20:59 Furosemide (Furosemide Inj 10 Mg/Ml 4ml Vial) 40 mg IVP BID [facility] [place] Stop: 04/16/25 20:59 Ceftriaxone Sodium/Dextrose (Rocephin/D5w 1gm Iv Premix) 1 gm in 50 mls @ 100 mls/hr IV QDAY [facility] [place] Stop: 03/25/25 08:59 Azithromycin 500 mg/ Sodium (Chloride) 250 mls @ 250 mls/hr IV QDAY YESSI Stop: 03/25/25 08:59 Magnesium Sulfate (Magnesium Sulfate Ivpb) 2 gm in 50 mls @ 25 mls/hr IV X1 ONE Stop: 03/17/25 14:05 Last Admin: 03/17/25 12:25 Dose: 25 mls/hr Documented By: DASHAWN Methylprednisolone Sodium Succinate (Methylprednisolone Sod Succ 40 Mg Vial) 40 mg IVP QDAY [facility] [place] Stop: 03/24/25 11:59 Last Admin: 03/17/25 12:25 Dose: 40 mg Documented By: DASHAWN Metoprolol Tartrate (Metoprolol Tartrate 25 Mg Tablet) 100 mg PO BID [facility] [place] Stop: 04/16/25 12:14 Last Admin: 03/17/25 12:24 Dose: Not Given Documented By: DASHAWN Non-Admin Reason: Contraindicated Comments: patient on bipap at this time unable to swallow Oxycodone HCl (Oxycodone Hcl 5 Mg Ir Tab) 5 mg PO Q6HR PRN PRN Reason: moderate to severe pain (4-10) Stop: 03/22/25 11:19 Sennosides (Senna/Docusate Sod 1 Tab Tablet) 1 tab PO QDAY [facility]; Protocol Stop: 04/17/25 08:59 Sodium Chloride (Sodium Chloride Rt [place] 0.9% 3 Ml Nebu) 3 ml INH PRN PRN PRN Reason: SOLN Stop: 04/16/25 08:13 Discontinued Medications Albuterol (Albuterol Rt 2.5 Mg/0.5 Ml Nebu) 10 mg INH X1 ONE Stop: 03/17/25 08:15 Last Admin: 03/17/25 08:58 Dose: 10 mg Documented By: RUTHANN Furosemide (Furosemide Inj 10 Mg/Ml 4ml Vial) 40 mg IVP X1 ONE Stop: 03/17/25 11:40 Last Admin: 03/17/25 11:53 Dose: 40 mg Documented By: GM Hydralazine HCl (Hydralazine Inj 20 Mg/Ml Vial) 10 mg IVP X1 ONE Stop: 03/17/25 12:49 Last Admin: 03/17/25 12:58 Dose: 10 mg Documented By: FC Hydromorphone HCl (Hydromorphone Inj 2 Mg/Ml Vial) 0.25 mg IVP X1 ONE Stop: 03/17/25 11:21 Last Admin: 03/17/25 11:54 Dose: 0.25 mg Documented By: FC Ceftriaxone Sodium/Dextrose (Rocephin/D5w 1gm Iv Premix) 1 gm in 50 mls @ 100 mls/hr IV QDAY YESSI Stop: 03/24/25 10:09 Last Infusion: 03/17/25 10:56 Dose: Infused Documented By: Admin: 03/17/25 10:26 Dose: 100 mls/hr Documented By: FC Doxycycline Hyclate 100 mg/ (Sodium Chloride) 100 mls @ 100 mls/hr IV X1 ONE Stop: 03/17/25 11:08 Last Infusion: 03/17/25 12:19 Dose: Infused Documented By: Admin: 03/17/25 11:15 Dose: 100 mls/hr Documented By: FC Azithromycin 500 mg/ Sodium (Chloride) 250 mls @ 250 mls/hr IV X1 ONE Stop: 03/17/25 13:14 Last Admin: 03/17/25 13:00 Dose: 250 mls/hr Documented By: FC Ipratropium [place] (Ipratropium Rt 0.5 Mg/ 2.5 Ml Nebu) 0.5 mg INH X1 ONE Stop: 03/17/25 08:15 Last Admin: 03/17/25 08:59 Dose: 0.5 mg Documented By: RG Methylprednisolone Sodium Succinate (Methylprednisolone Sod Succ 62.5 Mg/Ml 2ml Vial) 125 mg IV X1 ONE Stop: 03/17/25 08:15 Last Admin: 03/17/25 08:42 Dose: 125 mg Documented By: FC Morphine Sulfate (Morphine Sulf Inj 10 Mg/Ml Vial) 4 mg IVP X1 ONE Stop: 03/17/25 10:09 Last Admin: 08/11/25 10:14 Dose: 4 mg Documented By: DASHAWN Oxycodone HCl (Oxycodone Hcl 5 Mg Ir Tab) 10 mg PO Q6HR PRN PRN Reason: moderate to severe pain (4-10) Stop: 03/22/25 11:19 Sodium Chloride (Sodium Chloride Rt 10% 15 Ml Nebu) 5 ml INH X1 ONE Stop: 03/17/25 11:26 Last Admin: 03/17/25 11:57 Dose: Not Given Documented By: DASHAWN Non-Admin Reason: Duplicate Medication on eMAR See above Consultations Consultation(s) initiated? (list below): No Diagnosis Shortness of Breath Differential Diagnosis: acute exacerbation of chronic obstructive airways disease, congestive heart failure, community acquired pneumonia and asthma with exacerbation Most likely diagnosis given after review of the tests above:: pneumonia respiratory distress Admission Indicated Admission indicated?: indicated Admission Request Was there a request for admission?: Yes Admission Attestation Admission request attestation: Discussed case with [] from Hospitalist service regarding admission. Discussed patients ED course, exam findings, labs, and radiology results. The Hospitalist [agrees,declines] to accept the patient for admission. Disposition Plan Disposition Plan: Admit Critical Care Time Critical Care Time Critical Care Time: Yes Total Critical Care Time (min.): 35 Attestation: The high probability of sudden, clinically significant deterioration in the patient's condition required the highest level of my preparedness to intervene urgently. The services I provided to this patient were to treat and/or prevent clinically significant deterioration. Services included the following: chart data review, reviewing nursing notes and/or old charts, documentation time, network pricing consultant collaboration regarding findings and treatment options, medication orders and management, direct patient care, vital sign assessments and ordering, interpreting and reviewing diagnostic studies and lab tests. Aggregate critical care time includes only time during which I was engaged in work directly related to the patient's care, as described above, whether at bedside or elsewhere in the Emergency Department. It did not include time spent performing other reported procedures or the services of residents, students, nurses or physician assistants. Discharge Plan Plan Patient Disposition: Admit Acute Care w/in Hospital Problem List Clinical Impression: Pneumonia, Acute respiratory distress
[2025-03-17 09:55] LABS: B-Type Natriuretic Peptide 1207 pg/mL (0-100)
[2025-03-17] MEDS: MORPHINE SULF INJ 10 MG/ML VIAL 4 MG IVP (10:14)
[2025-03-17] MEDS: cefTRIAXone/D5w 1gm IV premix 1 GM/50 ML BAG IV (10:26)
[2025-03-17] MEDS: DOXYCYCLINE INJ 100 MG in SODIUM CHLORIDE 0.9% (POP) 100 ML IV (11:15)
[2025-03-17] MEDS: FUROSEMIDE INJ 10 MG/ML 4ML VIAL 40 MG IVP ×2 (11:53→20:05)
[2025-03-17] MEDS: HYDROmorphone INJ 2 MG/ML VIAL 0.25 MG IVP ×3 (11:54→21:29)
[2025-03-17] MEDS: Magnesium Sulfate 2 GM Ivpb 2 GM/50 ML BAG IV (12:25)
[2025-03-17 12:58] LABS: Base Excess, Venous 3 (-3-3); O2 Saturation, Venous 96 % (96-97); PCO2, Venous 44 mmHg (36-56); PO2, Venous 73 mmHg (15-58); pH, Venous 7.42 (7.33-7.66)
[2025-03-17] MEDS: hydrALAZINE INJ 20 MG/ML VIAL 10 MG IVP ×2 (12:58→17:06)
[2025-03-17] MEDS: AZITHROMYCIN INJ 500 MG in SODIUM CHLORIDE 0.9% 250 ML 250 ML 250 MG IV (13:00)
--- NOTE | 2025-03-17 13:25 | ESHP_ITS ---
<Statement entered by Sigifredo Lara MD - 03/20/25 09:09> I reviewed above note and agree with findings and plans. I have also personally examined the patient with medicine team and went over assessment and plan with medical team including internal medicine nurse practitioner and resident physician. <Statement entered by Thom Bertrand MD - 03/19/25 04:49> Patient was seen and examined at bedside. I agree on the assessment and plan on this note as documented by resident Khoa Luna PGY1. 79-year-old male with history of atrial fibrillation on Eliquis, hypertension, COPD, BPH, asthma and bilateral lower extremity neuropathy presented with a chief complaint of shortness of breath. Patient started on BiPAP in the ED, underlying shortness of breath secondary to severely acute decompensated heart failure patient has bilateral pitting edema all the way up to thighs. Bedside ultrasound assessment performed, unable to visualize IVC due to body habitus, four-chamber view of the heart showed no regional wall abnormalities grossly. Patient follows technical agronomist Dr. Dc outpatient, has poor outpatient compliance reports that he is unable to make it to appointments. Patient will be admitted to telemetry, started on diuresis with Lasix 40 mg twice daily, daily weights and strict DERRICK, goal is to diurese 2 to 3 L daily, for underlying pneumonia and COPD exacerbation patient will be started on IV steroids, breathing treatments, IV antibiotics. Patient's home medications resumed-oxycodone and metoprolol tartrate, resumed anticoagulation, does have history of atrial fibrillation. Disposition telemetry pending improvement for CHF exacerbation. Case discussed with attending Dr. Lara. Thom Bertrand MD PGY-2 Documentation for date of: 03/17/25 HPI History of Present Illness Chief complaint: Shortness of breath History of present illness: Mr. Schwartz is a pleasant 79-year-old male with a history of A-fib on Eliquis, hypertension, COPD, BPH, asthma, and bilateral lower extremity neuropathy who presented to [facility] ED on 03/17 due to worsening shortness of breath. The patient was admitted for acute hypoxic respiratory failure secondary to CHF exacerbation. The patient stated that about 2-3 nights ago he was having increased work of breathing and shortness of breath. On 03/17, the patient had acute worsening of his shortness of breath, which did not respond to his home breathing treatments and BiPAP, prompting him to seek care at [facility] ED. These events are not new for him, with a recent hospitalization at [facility] back in December 2024 for similar symptoms. At the time, the patient was discharged with a new diagnosis of new onset CHF. The patient was directed to follow-up with technical agronomist Dr. Dc, but patient has not been able to leave the house to go to appointments. Patient endorses constipation and swelling of feet bilaterally. Patient denies fever, chills, chest pain, heart palpitations, abdominal pain, diarrhea, dysuria, hematuria, and nausea vomiting. ED course: Patient was brought by ambulance and was saturating 90% on CPAP. Vitals significant for blood pressure 205/128 and respiratory rate 28 in ED on arrival. Initial labs significant for WBC 16.2, glucose 181, BNP 1207, troponin negative. Patient was given breathing treatment of albuterol/ipratropium and methylprednisolone 125 mg. Chest x-ray was taken which showed significant right base pneumonia and mild heart failure. Past Surgical History: -s/p right arm tendon transplant (1999)? Current Medication(s): - Metoprolol 100mg BID - Lisinopril 20mg daily - Lasix ?mg ?timing - Tamsulosin 0.4mg daily - Flomax 0.4mg daily - Avodart 0.5mg daily - Oxycodone 10mg QID - Zolpidem 10mg PRN Allergies (w/ Reactions): NKDA Family History: Noncontributory, patient does not know Occupation:?Retired, was in Alcohol Intake:?Drinks about once a month Tobacco/Vape Use:?Patient denies Other Drug Use:?Patient denies Review of Systems Review of Systems Systems Reviewed: All systems reviewed, normal except as documented Exam Vital Signs Temp Pulse Resp BP Pulse Ox O2 Del Method FiO2 97.7 F 73 19 201/116 H 97 BiPAP 35 03/17/25 08:14 03/17/25 13:04 03/17/25 13:04 03/17/25 13:04 03/17/25 13:04 03/17/25 13:04 03/17/25 13:04 Narrative Exam Physical Exam: General: Alert, no acute distress. Skin: Warm, dry, intact, no obvious rash. Head: Normocephalic, atraumatic. Eye: Normal conjunctiva, PERRL. Throat: Oral mucosa moist. No obvious lesions in oropharynx. Cardiovascular: Unable to auscultate due to body habitus. Respiratory: Respirations labored on BiPAP 35% FiO2, no crackles, diffuse periodic wheezing. Gastrointestinal: Soft, nontender, non-distended. No guarding or rebound tenderness. Extremities: 3+ pitting edema in BLE, no cyanosis, no clubbing. 2+ radial pulse bilaterally. Multiple bruises found throughout BUE. Neuro: No focal deficits observed. Conversant, moving all extremities. No overt cerebellar signs/incoordination. Psychiatric: Cooperative, appropriate affect. Results: Labs 03/17/25 08:27 03/17/25 08:27 Labs: Short CBC 03/17/25 Range/Units 08:27 WBC 16.2 H (3.8-10.6) Thou/mm3 Hgb 15.2 (13.5-16.0) g/dL Hct 46.6 (41.0-53.0) % Plt Count 229 (140-440) Thou/mm3 BMP 03/17/25 08:27 Sodium 140 Potassium 4.3 Chloride 100 Carbon Dioxide 29.6 BUN 14 Creatinine 1.0 Glucose 181 H Calcium 9.1 Cardiac Enzymes 03/17/25 Range/Units 08:27 Troponin I < 0.020 (0.0-0.045) ng/mL Liver Function 03/17/25 Range/Units 08:27 Total Bilirubin 1.2 (0.3-1.2) mg/dL AST 20 (0-34) U/L ALT 10 (10-49) U/L Alkaline Phosphatase 62 (46-116) U/L Albumin 4.4 (3.4-4.8) gm/dL ABG Interpretation ABG results: 03/17/25 12:33 VBG pH 7.42 VBG pCO2 44 VBG pO2 73 H VBG Base Excess 3 Quality Measures Quality Measures none Advance care planning discussed with:: patient and spouse Medications Home Medications and Allergies Home Medications ?Medication ?Instructions ?Recorded ?Confirmed ?Type metoprolol tartrate 100 mg tablet 100 mg PO BID 03/17/25 History lisinopril 20 mg tablet 20 mg PO QDAY 03/01/2403/17 History budesonide 160 mcg-glycopyr 9 2 inh inhalation BID 12/04/24 History mcg-formot 4.8 mcg/actuation HFA inhaler (Breztri OrderBorderphere) Allergies Allergy/AdvReac Type Severity Reaction Status Date / Time No Known Allergies Allergy Verified 03/01/24 16:00 Visit Medications Acetaminophen (Acetaminophen 325 Mg Tablet) 650 mg PO Q6H PRN PRN Reason: Fever >101.5 or pain (1-3) Stop: 04/16/25 11:19 Albuterol/Ipratropium (Albuterol/Ipratropium (Duoneb) Rt Viridiana 3 Ml Nebu) 3 ml INH Q4HRRT YESSI Stop: 04/16/25 14:59 Albuterol/Ipratropium (Albuterol/Ipratropium (Duoneb) Rt Viridiana 3 Ml Nebu) 3 ml INH Q2HR PRN PRN Reason: SHORTNESS OF BREATH OR WHEEZE Stop: 04/16/25 12:00 Apixaban (Apixaban 2.5 Mg Tablet) 5 mg PO BID YESSI Stop: 04/16/25 20:59 Furosemide (Furosemide Inj 10 Mg/Ml 4ml Vial) 40 mg IVP BID YESSI Stop: 04/16/25 20:59 Ceftriaxone Sodium/Dextrose (Rocephin/D5w 1gm Iv Premix) 1 gm in 50 mls @ 100 mls/hr IV QDAY YESSI Stop: 03/25/25 08:59 Azithromycin 500 mg/ Sodium (Chloride) 250 mls @ 250 mls/hr IV QDAY YESSI Stop: 03/25/25 08:59 Magnesium Sulfate (Magnesium Sulfate Ivpb) 2 gm in 50 mls @ 25 mls/hr IV X1 ONE Stop: 03/17/25 14:05 Last Admin: 03/17/25 12:25 Dose: 25 mls/hr Methylprednisolone Sodium Succinate (Methylprednisolone Sod Succ 40 Mg Vial) 40 mg IVP QDAY YESSI Stop: 03/24/25 11:59 Last Admin: 03/17/25 12:25 Dose: 40 mg Metoprolol Tartrate (Metoprolol Tartrate 25 Mg Tablet) 100 mg PO BID YESSI Stop: 04/16/25 12:14 Last Admin: 03/17/25 12:24 Dose: Not Given Oxycodone HCl (Oxycodone Hcl 5 Mg Ir Tab) 5 mg PO Q6HR PRN PRN Reason: moderate to severe pain (4-10) Stop: 03/22/25 11:19 Sennosides (Senna/Docusate Sod 1 Tab Tablet) 1 tab PO QDAY [facility]; Protocol Stop: 04/17/25 08:59 Sodium Chloride (Sodium Chloride Rt Viridiana 0.9% 3 Ml Nebu) 3 ml INH PRN PRN PRN Reason: SOLN Stop: 04/16/25 08:13 Discontinued Medications Albuterol (Albuterol Rt 2.5 Mg/0.5 Ml Nebu) 10 mg INH X1 ONE Stop: 03/17/25 08:15 Last Admin: 03/17/25 08:58 Dose: 10 mg Furosemide (Furosemide Inj 10 Mg/Ml 4ml Vial) 40 mg IVP X1 ONE Stop: 03/17/25 11:40 Last Admin: 03/17/25 11:53 Dose: 40 mg Hydralazine HCl (Hydralazine Inj 20 Mg/Ml Vial) 10 mg IVP X1 ONE Stop: 03/17/25 12:49 Last Admin: 03/17/25 12:58 Dose: 10 mg Hydromorphone HCl (Hydromorphone Inj 2 Mg/Ml Vial) 0.25 mg IVP X1 ONE Stop: 03/17/25 11:21 Last Admin: 03/17/25 11:54 Dose: 0.25 mg Ceftriaxone Sodium/Dextrose (Rocephin/D5w 1gm Iv Premix) 1 gm in 50 mls @ 100 mls/hr IV QDAY [facility] Stop: 03/24/25 10:09 Last Infusion: 03/17/25 10:56 Dose: Infused Doxycycline Hyclate 100 mg/ (Sodium Chloride) 100 mls @ 100 mls/hr IV X1 ONE Stop: 03/17/25 11:08 Last Infusion: 03/17/25 12:19 Dose: Infused Azithromycin 500 mg/ Sodium (Chloride) 250 mls @ 250 mls/hr IV X1 ONE Stop: 03/17/25 13:14 Last Admin: 03/17/25 13:00 Dose: 250 mls/hr Ipratropium [place]ling (Ipratropium Rt 0.5 Mg/ 2.5 Ml Nebu) 0.5 mg INH X1 ONE Stop: 03/17/25 08:15 Last Admin: 03/17/25 08:59 Dose: 0.5 mg Methylprednisolone Sodium Succinate (Methylprednisolone Sod Succ 62.5 Mg/Ml 2ml Vial) 125 mg IV X1 ONE Stop: 03/17/25 08:15 Last Admin: 03/17/25 08:42 Dose: 125 mg Morphine Sulfate (Morphine Sulf Inj 10 Mg/Ml Vial) 4 mg IVP X1 ONE Stop: 03/17/25 10:09 Last Admin: 03/17/25 10:14 Dose: 4 mg Oxycodone HCl (Oxycodone Hcl 5 Mg Ir Tab) 10 mg PO Q6HR PRN PRN Reason: moderate to severe pain (4-10) Stop: 03/22/25 11:19 Sodium Chloride (Sodium Chloride Rt 10% 15 Ml Nebu) 5 ml INH X1 ONE Stop: 03/17/25 11:26 Last Admin: 03/17/25 11:57 Dose: Not Given Assessment & Plan Plan Mr. Schwartz is a pleasant 79-year-old male with a history of A-fib on Eliquis, hypertension, COPD, BPH, asthma, and bilateral lower extremity neuropathy who presented to [facility] ED on 03/17 due to worsening shortness of breath. The patient was admitted for acute hypoxic respiratory failure secondary to CHF exacerbation. #Acute hypoxic respiratory failure 2/ #Acute on chronic CHF exacerbation #HFpEF (EF 55-60%; diastolic dysfunction II December 2024) Patient had 2 to 3 days of worsening shortness of breath. Patient required BiPAP for management in ED. It was noted that the patient's bilateral lower extremities was significantly swollen and edematous. The patient has a history of CHF that was recently diagnosed back in December 2024. At the hospitalization, the patient was noted to have an echocardiogram that showed ejection fraction 55 to 60% with mild diastolic dysfunction. The patient was instructed to follow-up with Dr. Dc, cardiology, but the patient stated that he has not done so. BNP 1207. Chest x-ray shows mild CHF. ? Strict I's and O's ? Fluid restriction ? Daily weights ? Ordered one-time dose of furosemide 40 mg IVP on 03/17 ? Ordered furosemide 40 mg IV push twice daily ? Will not order echocardiogram at this time as patient's last echocardiogram was only 3 months ago ? Supplemental O2 as needed, wean as tolerated #Community acquired pneumonia #Leukocytosis Patient noted to have elevated WBC of 16.2 and chest x-ray shows significant right base pneumonia. Patient does not meet SIRS criteria and does not have signs of endorgan damage to support sepsis. Given that this pneumonia was found on presentation from home, this is most likely a community-acquired pneumonia. Will cover with appropriate antibiotics for both typical and atypical causes of community-acquired pneumonia. ? Continue ceftriaxone 1g and azithromycin 500mg daily (03/17--) #COPD exacerbation #History of asthma Patient has a history of COPD and reported history of asthma. Patient endorses taking breathing treatments at home and carries a home BiPAP machine. The COPD exacerbation is most likely brought on by his CHF exacerbation. Patient received methylprednisolone 125 mg IV push in the ED. ? DuoNebs 3 mL every 4 hour ordered with additional DuoNebs every 2 hour as needed ? Start patient on methylprednisolone 40 mg IV push daily, will reassess need daily #A-fib without RVR, on Eliquis Patient has a history of A-fib with RVR on Eliquis. The patient states that he does not know if he takes Eliquis or not. According to his medication list provided by the patient's , he does not have Eliquis listed. However, the patient does have multiple bruises on bilateral upper extremities reminiscent of easy bruising found in patients on Eliquis. EKG supports atrial fibrillation. CHADS-VASc score 4 (stroke risk 4.8% per year) HAS-BLED score 2 ? Started patient on Eliquis 5 mg twice daily, as noted in recommendations from previous hospitalization discharge summary 12/09/2024 ? Will continue to monitor patient's daily labs to identify potential bleeding #Primary hypertension Patient has a history of hypertension. Patient takes lisinopril 20 mg daily and metoprolol 100 mg twice daily at home and presented with blood pressure of 205/128 in the ED. ? Restart patient on home metoprolol 100 mg twice daily ? Hydralazine 10 mg IV push every 6 hours as needed if systolic blood pressure over 180 #BPH Patient does not state that he has a history of BPH, however, the patient does take multiple medications that use for management of BPH. ? Will hold patient's home Flomax, Avodart, and tamsulosin for now ? Ordered Turner catheter insertion DVT Prophylaxis: Eliquis GI Prophylaxis: N/A Bowel: Senokot Diet: Cardiac, fluid restriction 1500 cc Turner: Yes Lines: Peripheral IV Antibiotics: Ceftriaxone & Azithromycin (03/17--) Code Status: FULL Reason for Hospitalization: Acute hypoxic respiratory failure Other Barriers to Discharge: N/A Patient plan of care was discussed with the senior resident Dr. Bertrand (PGY-2) and attending physician Dr. Lara. Khoa Luna, PGY1
[2025-03-17 13:30] LABS: Procalcitonin 0.08 ng/ml (0.0-0.49)
[2025-03-17] MEDS: ALBUTEROL/IPRATROPIUM (Duoneb) RT SOL 3 ML NEBU INH ×3 (15:55→22:55)
--- NOTE | 2025-03-17 19:11 | PC.CC ---
Pt is a 79 yo male who entered the ER on 03/17/25. Pt has history of A-fib, hypertension, COPD, BPH, asthma, but his chief complaint was shortness of breath. The patient was admitted for acute hypoxic respiratory failure secondary to CHF exacerbation. ASW contacted his Kali who reported that the pt does not have a food porter and would definitely need to see one. Kali reported that she would like SS or the attending medical provider to please refer the pt to a food porter in the local area. Kail reported that every time the pt gets referred to a food porter, it is too far for them to drive and the pt gets quickly out of breath. Kali reported the pts PCP is Dr. Usman Moreira at [facility], his pharmacy is [facility] on [address]. Kali reported she is the decision maker in the event the pt cannot make his own decisions. Kali reported the pt is a Full Code with limitations. She reported the pt does not have a POLST/Advanced Directive in place. Kali reports the pt does not do his own ADLs and she does all the toileting, bathing, cooking and cleaning for the pt. Kali reports the pt used DME such as a walker and wheel chair, nebulizer and uses a Bipap at home. Pt is on O2 at 2-4L, sometimes more. Pt sees Dr. Decker for cardiology, but stressed he needs to see a food porter. Kali reports the pt is diagnosed with A-fib, congestive heart failure and COPD. She denies h/o mental health diagnosis. Plan is for the pt to return home, but may be open to SNF. Home vs SNf vs Home Health; would life info on Hospice care surrogate decision maker: Kali Ivy [phone] Full code PCP is Usman Moreira at [facility].
--- NOTE | 2025-03-17 19:35 | PC.NURSE ---
Report received, pt arrived to room 375 via gurney connected to BiPAP, transferred self to bed connected to monitor and oriented to room.
[2025-03-17] MEDS: METOPROLOL TARTRATE 25 MG TABLET 100 MG PO (20:09)
[2025-03-17] MEDS: oxyCODONE HCL 5 MG IR TAB PO (20:09)
[2025-03-17] MEDS: APIXABAN 2.5 MG TABLET 5 MG PO (20:09)
[2025-03-17 21:22] LABS: Influenza A Ag Negative; Influenza B Ag Negative
[2025-03-18] VITALS (21 sets, daily range): BP systolic 157–200; BP diastolic 86–110; PULSE 67–98; RESP 12–26; TEMP 36.1–36.3; O2SAT 5–100; BMI 41.3
[2025-03-18] MEDS: ALBUTEROL/IPRATROPIUM (Duoneb) RT SOL 3 ML NEBU INH ×5 (02:17→23:13)
[2025-03-18] MEDS: oxyCODONE HCL 5 MG IR TAB PO ×3 (02:57→19:18)
[2025-03-18] MEDS: HYDROmorphone INJ 2 MG/ML VIAL 0.25 MG IVP ×3 (03:42→15:49)
--- NOTE | 2025-03-18 04:26 | PC.NURSE ---
Pt to call to bring medication list, per pt MD had took picture of list in ED, discussed with pt hat we need to input in system if list/bottles can be brought, verbalized understanding will have bring.
[2025-03-18] MEDS: hydrALAZINE INJ 20 MG/ML VIAL 10 MG IVP ×2 (08:02→19:17)
[2025-03-18] MEDS: FUROSEMIDE INJ 10 MG/ML 4ML VIAL 40 MG IVP ×2 (08:23→20:29)
[2025-03-18] MEDS: METOPROLOL TARTRATE 25 MG TABLET 100 MG PO ×2 (08:24→20:30)
[2025-03-18] MEDS: cefTRIAXone/D5w 1gm IV premix 1 GM/50 ML BAG IV (08:25)
[2025-03-18] MEDS: SENNA/DOCUSATE SOD 1 TAB TABLET PO (08:47)
[2025-03-18] MEDS: APIXABAN 2.5 MG TABLET 5 MG PO ×2 (08:47→20:30)
[2025-03-18] MEDS: AZITHROMYCIN INJ 500 MG in SODIUM CHLORIDE 0.9% 250 ML 250 ML 250 MG IV (09:22)
--- NOTE | 2025-03-18 09:44 | PC.SS ---
INFECTIOUS WASTE TECHNICIAN met with patient and patient at bedside. INFECTIOUS WASTE TECHNICIAN went over d/c plan, patient and patient stated that they do not want SNF and would like patient to be home. Patients stated that patient is connected to [facility] already but feel he is needing more support. Patient stated that she would like more information on hospice. SS provided hospice of the day [facility], patient stated that they would like [facility] hospice as they are already connected. INFECTIOUS WASTE TECHNICIAN informed doctor that patient and patient are requesting hospice. Doctors stated that they would go in to speak to patient and patient .
--- NOTE | 2025-03-18 09:56 | ESPR_ITS ---
<Statement entered by Sigifredo Lara MD - 03/31/25 07:42> I reviewed above note and agree with findings and plans. I have also personally examined the patient with medicine team and went over assessment and plan with medical team including international organizer and resident physician. <Statement entered by Thom Bertrand MD - 03/19/25 04:59> Patient was seen and examined at bedside. I agree on the assessment and plan on this note as documented by resident Khoa Luna PGY1. Patient seen and examined at bedside, patient reports to be breathing more comfortably on BiPAP reports improvement in shortness of breath, patient is net -3 L on IV Lasix twice daily. Patient and his at bedside requesting to obtain referral for hospice, patient was counseled at bedside that he does not have any diagnosis with impending in future hence is a poor candidate for hospice, patient stressed upon the fact that he is unable to leave his home, does not feel safe at home and would like to opt for hospice care, patient counseled at bedside on reasons for being on hospice, verbalized understanding still requesting a referral for hospice, we will respect patient's wishes and have hospice automotive sales representative talk and eap counselor patient and patient's family. Otherwise patient does have underlying anxiety, refusing labs reports that he is afraid of needles, we will continue IV diuresis, IV steroids, breathing treatments, ceftriaxone and azithromycin for pneumonia for now. Goals of care discussion to transition CODE STATUS if patient decides to proceed with hospice will be planned in morning. Otherwise patient noted to be in persistent A-fib, continue Eliquis. Disposition telemetry pending improvement in CHF exacerbation. Case discussed with attending Dr. Marco Bertrand MD PGY-2 Documentation for date of: 03/18/25 Subjective Subjective Interval history: Overnight events: No acute events overnight. Patient was seen and examined at bedside. AM vitals and labs reviewed. Patient is breathing more comfortably on BiPAP and is easier to understand today. Attempted to wean patient off of BiPAP and onto nasal cannula, but patient refused as he had too much anxiety. Patient states that he takes his home's Zolpidem 10 mg for anxiety. No other complaints at this time. Patient and spouse stated that they desired to pursue hospice for the patient. Patient produced about 4 L of urine with net negative of almost 3 L. Gave lorazepam 1 mg one-time dose for patient's anxiety and attempt to wean patient off of BiPAP. Patient refused a.m. labs, it was reported that he has a fear of needles per nursing note. Made social science research assistant aware that patient would like to pursue hospice. Will continue diuresis with Lasix 40 mg IVP twice daily. Resume patient's home lisinopril 20 mg daily. Review of systems otherwise negative except for what is mentioned above. Exam Vital Signs Temp Pulse Resp BP Pulse Ox O2 Del Method FiO2 97.0 F 76 17 170/100 H 100 Nasal Cannula 35 03/18/25 08:25 03/18/25 08:25 03/18/25 08:25 03/18/25 08:25 03/18/25 08:03/18/25 08:03/18/25 08: Narrative Exam Physical Exam: General: Alert, no acute distress. Skin: Warm, dry, intact, no obvious rash. Head: Normocephalic, atraumatic. Eye: Normal conjunctiva, PERRL. Throat: Oral mucosa moist. No obvious lesions in oropharynx. Cardiovascular: Unable to auscultate due to body habitus. Respiratory: Respirations unlabored BiPAP 35% FiO2, no crackles, diffuse periodic wheezing. Gastrointestinal: Soft, nontender, non-distended. No guarding or rebound tenderness. Extremities: 3+ pitting edema in BLE, no cyanosis, no clubbing. 2+ radial pulse bilaterally. Multiple bruises found throughout BUE. Neuro: No focal deficits observed. Conversant, moving all extremities. No overt cerebellar signs/incoordination. Psychiatric: Cooperative, appropriate affect. Objective Labs 03/17/25 08:27 03/17/25 08:27 Labs: Laboratory Results - last 24 hr 03/17/25 03/17/25 03/17/25 08: 12:33 20:13 VBG pH 7.42 VBG pCO2 44 VBG pO2 73 H VBG O2 Sat (Denzel) 96 VBG Base Excess 3 B-Natriuretic Peptide 1207 H* Procalcitonin 0.08 Influenza A (Rapid) Negative Influenza B (Rapid) Negative ABG Interpretation ABG results: 03/17/25 12:33 VBG pH 7.42 VBG pCO2 44 VBG pO2 73 H VBG Base Excess 3 Quality Measures Quality Measures none Advance care planning discussed with:: patient and spouse Assessment & Plan Assessment Current Active Medications: Generic Name Dose Route Start Last Admin Trade Name Freq PRN Reason Stop Dose Admin Acetaminophen 650 mg 03/17/25 11:20 Acetaminophen 325 Mg Tablet PO 04/16/25 11:19 Q6H PRN Fever >101.5 or pain (1-3) Albuterol/Ipratropium 3 ml 03/17/25 15:00 03/18/25 06:16 Albuterol/Ipratropium (Duoneb) Rt Viridiana 3 Ml Nebu INH 04/16/25 14:59 3 ml Q4HRRT YESSI Administration Albuterol/Ipratropium 3 ml 03/17/25 12:01 Albuterol/Ipratropium (Duoneb) Rt Viridiana 3 Ml Nebu INH 04/16/25 12:00 Q2HR PRN SHORTNESS OF BREATH OR WHEEZE Apixaban 5 mg 03/17/25 21:00 03/18/25 08:47 Apixaban 2.5 Mg Tablet PO 04/16/25 20:59 5 mg BID YESSI Administration Furosemide 40 mg 03/17/25 21:00 03/18/25 08:23 Furosemide Inj 10 Mg/Ml 4ml Vial IVP 04/16/25 20:59 40 mg BID YESSI Administration Hydralazine HCl 10 mg 03/17/25 17:00 03/18/25 08:02 Hydralazine Inj 20 Mg/Ml Vial IVP 04/16/25 16:59 10 mg Q6H PRN Administration SBP > 180 Hydromorphone HCl 0.25 mg 03/17/25 15:04 03/18/25 03:42 Hydromorphone Inj 2 Mg/Ml Vial IVP 03/22/25 15:03 0.25 mg Q6H PRN Administration BREAKTHROUGH PAIN (SEVERE) Ceftriaxone Sodium/Dextrose 1 gm in 50 mls @ 100 mls/hr 03/18/25 09:00 03/18/25 08:25 Rocephin/D5w 1gm Iv Premix IV 03/25/25 08:59 100 mls/hr QDAY YESSI Administration Azithromycin 500 mg/ Sodium 250 mls @ 250 mls/hr 03/18/25 09:00 03/18/25 09:22 Chloride IV 03/25/25 08:59 250 mls/hr QDAY YESSI Administration Lisinopril 20 mg 03/18/25 09:00 03/18/25 08:24 Lisinopril 20 Mg Tablet PO 04/17/25 08:59 20 mg QDAY YESSI Administration Methylprednisolone Sodium Succinate 40 mg 03/17/25 12:00 03/18/25 08:24 Methylprednisolone Sod Succ 40 Mg Vial IVP 03/24/25 11:59 40 mg QDAY YESSI Administration Metoprolol Tartrate 100 mg 03/17/25 12:15 03/18/25 08:24 Metoprolol Tartrate 25 Mg Tablet PO 04/16/25 12:14 100 mg BID YESSI Administration Oxycodone HCl 5 mg 03/17/25 12:08 03/18/25 02:57 Oxycodone Hcl 5 Mg Ir Tab PO 03/22/25 11:19 5 mg Q6HR PRN Administration moderate to severe pain (4-10) Sennosides 1 tab 03/18/25 09:00 03/18/25 08:47 Senna/Docusate Sod 1 Tab Tablet PO 04/17/25 08:59 1 tab QDAY YESSI Administration Protocol Sodium Chloride 3 ml 03/17/25 08:14 Sodium Chloride Rt Viridiana 0.9% 3 Ml Nebu INH 04/16/25 08:13 PRN PRN SOLN Plan Mr. Schwartz is a pleasant 79-year-old male with a history of A-fib on Eliquis, hypertension, COPD, BPH, asthma, and bilateral lower extremity neuropathy who presented to [facility] ED on 03/17 due to worsening shortness of breath. The patient was admitted for acute hypoxic respiratory failure secondary to CHF exacerbation. #Acute hypoxic respiratory failure 2/2 #Acute on chronic CHF exacerbation #HFpEF (EF 55-60%; diastolic dysfunction II December 2024) Patient had 2 to 3 days of worsening shortness of breath. Patient required BiPAP for management in ED. It was noted that the patient's bilateral lower extremities was significantly swollen and edematous. The patient has a history of CHF that was recently diagnosed back in December 2024. At the hospitalization, the patient was noted to have an echocardiogram that showed ejection fraction 55 to 60% with mild diastolic dysfunction. The patient was instructed to follow-up with Dr. Dc, cardiology, but the patient stated that he has not done so. BNP 1207. Chest x-ray shows mild CHF. ? Strict I's and O's ? Fluid restriction ? Daily weights ? Ordered one-time dose of furosemide 40 mg IVP on 03/17 ? Ordered furosemide 40 mg IV push twice daily ? Will not order echocardiogram at this time as patient's last echocardiogram was only 3 months ago ? Supplemental O2 as needed, wean as tolerated #Community acquired pneumonia #Leukocytosis Patient noted to have elevated WBC of 16.2 and chest x-ray shows significant right base pneumonia. Patient does not meet SIRS criteria and does not have signs of endorgan damage to support sepsis. Given that this pneumonia was found on presentation from home, this is most likely a community-acquired pneumonia. Will cover with appropriate antibiotics for both typical and atypical causes of community-acquired pneumonia. ? Continue ceftriaxone 1g and azithromycin 500mg daily (03/17--) #COPD exacerbation #History of asthma Patient has a history of COPD and reported history of asthma. Patient endorses taking breathing treatments at home and carries a home BiPAP machine. The COPD exacerbation is most likely brought on by his CHF exacerbation. Patient received methylprednisolone 125 mg IV push in the ED. ? DuoNebs 3 mL every 4 hour ordered with additional DuoNebs every 2 hour as needed ? Start patient on methylprednisolone 40 mg IV push daily, will reassess need daily #A-fib without RVR, on Eliquis Patient has a history of A-fib with RVR on Eliquis. The patient states that he does not know if he takes Eliquis or not. According to his medication list provided by the patient's , he does not have Eliquis listed. However, the patient does have multiple bruises on bilateral upper extremities reminiscent of easy bruising found in patients on Eliquis. EKG supports atrial fibrillation. CHADS-VASc score 4 (stroke risk 4.8% per year) HAS-BLED score 2 ? Started patient on Eliquis 5 mg twice daily, as noted in recommendations from previous hospitalization discharge summary 12/09/2024 ? Will continue to monitor patient's daily labs to identify potential bleeding #Primary hypertension Patient has a history of hypertension. Patient takes lisinopril 20 mg daily and metoprolol 100 mg twice daily at home and presented with blood pressure of 205/128 in the ED. ? Restart patient on home metoprolol 100 mg twice daily ? Resume patient on home lisinopril 20 mg daily ? Hydralazine 10 mg IV push every 6 hours as needed if systolic blood pressure over 180 #BPH Patient does not state that he has a history of BPH, however, the patient does take multiple medications that use for management of BPH. ? Will hold patient's home Flomax, Avodart, and tamsulosin for now ? Ordered Turner catheter insertion DVT Prophylaxis: Eliquis GI Prophylaxis: N/A Bowel: Senokot Diet: Cardiac, fluid restriction 1500 cc Turner: Yes Lines: Peripheral IV Antibiotics: Ceftriaxone & Azithromycin (03/17--) Code Status: FULL Reason for Hospitalization: Acute hypoxic respiratory failure Other Barriers to Discharge: N/A Patient plan of care was discussed with the senior resident Dr. Bertrand (PGY-2) and attending physician Dr. Lara. Khoa Luna, PGY1
--- NOTE | 2025-03-18 10:00 | PC.SS ---
SS update: IV antibiotics, IV steroids
--- NOTE | 2025-03-18 10:17 | PC.SS ---
HEALTH AIDE spoke to [facility] hospice staff scheduled to come see family at bedside at 11:45 AM. HEALTH AIDE informed family.
--- NOTE | 2025-03-18 10:56 | PC.SS ---
Addendum entered by JENIFFER Osborn 03/18/25 12:01: [facility] made contact with patient and patient to go over services, Purvi with [facility] stated that nurses confirmed patient will be d/c tomorrow instead. Original Note: JENIFFER notified Jazmine with [facility] of DME that patient utilizes at home. Jazmine confirmed that they can continue with that DME and it will be replaced at a later time.
--- NOTE | 2025-03-18 11:53 | PC.NURSE ---
PATIENT REFUSED LABS AT 1150, PT REPORTS HE HAS NEEDLE PHOBIAS. STATES I AM DONE WITH THIS. DR. INTERIANO MADE AWARE. NO NEW ORDERS AT THIS TIME.
--- NOTE | 2025-03-18 14:55 | PC.SS ---
SS was contacted by Gregor from [place] in regards to transportation [phone] or [phone]. He informed that once patient discharges, SS will have to contact [place] transportation.
--- NOTE | 2025-03-18 19:27 | PC.NURSE ---
Pt c/o anxiety requesting Ativan per pt had received earlier and it helped, informed pt that MD can be contacted and follow up with him, pt verbalized understanding
[2025-03-19] VITALS (25 sets, daily range): BP systolic 148–205; BP diastolic 72–115; PULSE 68–89; RESP 12–26; TEMP 36.1–36.9; O2SAT 95–100; BMI 41.3
[2025-03-19] MEDS: HYDROmorphone INJ 2 MG/ML VIAL 0.25 MG IVP ×3 (00:25→14:08)
[2025-03-19] MEDS: ALBUTEROL/IPRATROPIUM (Duoneb) RT SOL 3 ML NEBU INH ×6 (02:47→23:06)
[2025-03-19] MEDS: oxyCODONE HCL 5 MG IR TAB PO ×2 (04:16→16:46)
[2025-03-19] MEDS: hydrALAZINE INJ 20 MG/ML VIAL 10 MG IVP (04:16)
[2025-03-19] MEDS: METOPROLOL TARTRATE 25 MG TABLET 100 MG PO ×2 (08:00→21:19)
[2025-03-19] MEDS: APIXABAN 2.5 MG TABLET 5 MG PO ×2 (08:01→21:20)
[2025-03-19] MEDS: FUROSEMIDE INJ 10 MG/ML 4ML VIAL 40 MG IVP (08:05)
[2025-03-19] MEDS: cefTRIAXone/D5w 1gm IV premix 1 GM/50 ML BAG IV (08:14)
--- NOTE | 2025-03-19 08:22 | PC.NURSE ---
Addendum entered by Jacy Wen RN 03/19/25 09:43: Rechecked BP after AM medications reults 144/77 HR 78 Original Note: MD notified pt BP elevated @ 193/102 HR 76. States is aware. Routine AM HTN medication given
[2025-03-19] MEDS: AZITHROMYCIN INJ 500 MG in SODIUM CHLORIDE 0.9% 250 ML 250 ML 250 MG IV (08:42)
--- NOTE | 2025-03-19 08:44 | PC.SS ---
Follow up note: SS spoke to Purvi from [facility] who confirmed pt does not require DME. Pt has O2 at home and if DME is needed they can follow up with pt at home. Per Purvi, they have nurse on stand by to follow up with pt at home today.
--- NOTE | 2025-03-19 09:35 | ESPR_ITS ---
<Statement entered by Sigifredo Lara MD - 03/31/25 07:43> I reviewed above note and agree with findings and plans. I have also personally examined the patient with medicine team and went over assessment and plan with medical team including internet merchant and resident physician. <Statement entered by Thom Bertrand MD - 03/19/25 13:44> Patient was seen and examined at bedside. I agree on the assessment and plan on this note as documented by resident Khoa Luna PGY1. 79-year-old male with past medical history as below, patient admitted for CHF exacerbation had 4 L urine output is -2.3 L in the last 24 hours, net hospitalization -4.6 L, still has +2 bilateral lower extremity edema we will continue with IV diuresis. Patient does have underlying diagnosis of PTSD reports that he was in the [place] and has had PTSD with nightmares since then, we will start patient on prazosin and Zoloft. Patient continues to have elevated blood pressure started on nifedipine 30 mg p.o. daily, will optimize blood pressure regimen. Will continue IV antibiotics, COPD treatment disposition telemetry acute decompensated heart failure, will continue IV diuresis. Case discussed with attending Dr. Marco Bertrand MD PGY-2 Documentation for date of: 03/19/25 Subjective Subjective Interval history: Overnight events: No acute events overnight. Patient was seen and examined at bedside. AM vitals and labs reviewed. Patient complains of anxiety and nightmares at this time. Patient asking for medication to help with his PTSD. Patient breathing comfortably 5 L nasal cannula initially, but later in the day the patient decided to put BiPAP back on due to anxiety. When patient was woken up with BiPAP, patient took the BiPAP off and was breathing comfortably on room air for several minutes. Patient made good urine, about 5 L urine output with net negative almost 3 L. Bilateral lower extremity edema improved compared to yesterday. Patient initially refused morning blood draws for labs due to fear of needles twice. Was eventually able to get blood on third attempt after accompanying hand embroiderer to blood draw and explaining the dangers of aggressive diuresis without frequent analysis of electrolytes. Started patient on prazosin and sertraline for management of PTSD and nightmares. Started patient on nifedipine in addition to his lisinopril and metoprolol for better blood pressure control. Discussed with the patient his full CODE STATUS with his desire to pursue hospice. The patient was adamant that he wanted everything done and home hospice. Review of systems otherwise negative except for what is mentioned above. Exam Vital Signs Temp Pulse Resp BP Pulse Ox O2 Del Method O2 Flow Rate 97.2 F 80 18 192/102 H 95 Nasal Cannula 5 03/19/25 07:52 03/19/25 08:05 03/19/25 07:52 03/19/25 08:05 03/19/25 07:52 03/19/25 07:52 03/19/25 07:52 FiO2 35 03/19/25 07:18 Narrative Exam Physical Exam: General: Alert, no acute distress. Skin: Warm, dry, intact, no obvious rash. Head: Normocephalic, atraumatic. Eye: Normal conjunctiva, PERRL. Throat: Oral mucosa moist. No obvious lesions in oropharynx. Cardiovascular: Unable to auscultate due to body habitus. Respiratory: Respirations unlabored on 5L NC and room air, no crackles, no wheezing noted. Gastrointestinal: Soft, nontender, non-distended. No guarding or rebound tenderness. Extremities: 3+ pitting edema in BLE, no cyanosis, no clubbing. 2+ radial pulse bilaterally. Multiple bruises found throughout BUE. Neuro: No focal deficits observed. Conversant, moving all extremities. No overt cerebellar signs/incoordination. Psychiatric: Cooperative, appropriate affect. Objective Labs 03/19/25 12:09 03/19/25 12:09 ABG Interpretation ABG results: 03/17/25 12:33 VBG pH 7.42 VBG pCO2 44 VBG pO2 73 H VBG Base Excess 3 Quality Measures Quality Measures none Advance care planning discussed with:: patient Assessment & Plan Assessment Current Active Medications: Generic Name Dose Route Start Last Admin Trade Name Freq PRN Reason Stop Dose Admin Acetaminophen 650 mg 03/17/25 11:20 Acetaminophen 325 Mg Tablet PO 04/16/25 11:19 Q6H PRN Fever >101.5 or pain (1-3) Albuterol/Ipratropium 3 ml 03/17/25 15:00 03/19/25 07:17 Albuterol/Ipratropium (Duoneb) Rt Viridiana 3 Ml Nebu INH 04/16/25 14:59 3 ml Q4HRRT YESSI Administration Albuterol/Ipratropium 3 ml 03/17/25 12:01 Albuterol/Ipratropium (Duoneb) Rt Viridiana 3 Ml Nebu INH 04/16/25 12:00 Q2HR PRN SHORTNESS OF BREATH OR WHEEZE Apixaban 5 mg 03/17/25 21:00 03/19/25 08:01 Apixaban 2.5 Mg Tablet PO 04/16/25 20:59 5 mg BID YESSI Administration Furosemide 40 mg 03/17/25 21:00 03/19/25 08:05 Furosemide Inj 10 Mg/Ml 4ml Vial IVP 04/16/25 20:59 40 mg BID YESSI Administration Hydralazine HCl 10 mg 03/17/25 17:00 03/19/25 04:16 Hydralazine Inj 20 Mg/Ml Vial IVP 04/16/25 16:59 10 mg Q6H PRN Administration SBP > 180 Hydromorphone HCl 0.25 mg 03/17/25 15:04 03/19/25 07:21 Hydromorphone Inj 2 Mg/Ml Vial IVP 03/22/25 15:03 0.25 mg Q6H PRN Administration BREAKTHROUGH PAIN (SEVERE) Ceftriaxone Sodium/Dextrose 1 gm in 50 mls @ 100 mls/hr 03/18/25 09:00 03/19/25 08:14 Rocephin/D5w 1gm Iv Premix IV 03/25/25 08:59 100 mls/hr QDAY YESSI Administration Azithromycin 500 mg/ Sodium 250 mls @ 250 mls/hr 03/18/25 09:00 03/19/25 08:42 Chloride IV 03/25/25 08:59 250 mls/hr QDAY YESSI Administration Lisinopril 20 mg 03/18/25 09:00 03/19/25 08:01 Lisinopril 20 Mg Tablet PO 04/17/25 08:59 20 mg QDAY YESSI Administration Methylprednisolone Sodium Succinate 40 mg 03/17/25 12:00 03/19/25 08:02 Methylprednisolone Sod Succ 40 Mg Vial IVP 03/24/25 11:59 40 mg QDAY YESSI Administration Metoprolol Tartrate 100 mg 03/17/25 12:15 03/19/25 08:00 Metoprolol Tartrate 25 Mg Tablet PO 04/16/25 12:14 100 mg BID YESSI Administration Oxycodone HCl 5 mg 03/17/25 12:08 03/19/25 04:16 Oxycodone Hcl 5 Mg Ir Tab PO 03/22/25 11:19 5 mg Q6HR PRN Administration moderate to severe pain (4-10) Sennosides 1 tab 03/18/25 09:00 03/19/25 08:29 Senna/Docusate Sod 1 Tab Tablet PO 04/17/25 08:59 Not Given QDAY YESSI Protocol Sodium Chloride 3 ml 03/17/25 08:14 Sodium Chloride Rt Viridiana 0.9% 3 Ml Nebu INH 04/16/25 08:13 PRN PRN SOLN Plan Mr. Schwartz is a pleasant 79-year-old male with a history of A-fib on Eliquis, hypertension, COPD, BPH, asthma, and bilateral lower extremity neuropathy who presented to [facility] ED on 03/17 due to worsening shortness of breath. The patient was admitted for acute hypoxic respiratory failure secondary to CHF exacerbation. #Acute hypoxic respiratory failure 2/ #Acute on chronic CHF exacerbation #HFpEF (EF 55-60%; diastolic dysfunction II December 2024) Patient had 2 to 3 days of worsening shortness of breath. Patient required BiPAP for management in ED. It was noted that the patient's bilateral lower extremities was significantly swollen and edematous. The patient has a history of CHF that was recently diagnosed back in December 2024. At the hospitalization, the patient was noted to have an echocardiogram that showed ejection fraction 55 to 60% with mild diastolic dysfunction. The patient was instructed to follow-up with Dr. Dc, cardiology, but the patient stated that he has not done so. BNP 1207. Chest x-ray shows mild CHF. ? Strict I's and O's ? Fluid restriction ? Daily weights ? Ordered one-time dose of furosemide 40 mg IVP on 03/17 ? Ordered furosemide 40 mg IV push twice daily ? Will not order echocardiogram at this time as patient's last echocardiogram was only 3 months ago ? Supplemental O2 as needed, wean as tolerated ? Discussed with the patient his full CODE STATUS with his desire to pursue hospice. The patient was adamant that he wanted everything done and home hospice. #Community acquired pneumonia #Leukocytosis Patient noted to have elevated WBC of 16.2 and chest x-ray shows significant right base pneumonia. Patient does not meet SIRS criteria and does not have signs of endorgan damage to support sepsis. Given that this pneumonia was found on presentation from home, this is most likely a community-acquired pneumonia. Will cover with appropriate antibiotics for both typical and atypical causes of community-acquired pneumonia. ? Continue ceftriaxone 1g and azithromycin 500mg daily (03/17--) #COPD exacerbation #History of asthma Patient has a history of COPD and reported history of asthma. Patient endorses taking breathing treatments at home and carries a home BiPAP machine. The COPD exacerbation is most likely brought on by his CHF exacerbation. Patient received methylprednisolone 125 mg IV push in the ED. ? DuoNebs 3 mL every 4 hour ordered with additional DuoNebs every 2 hour as needed ? Start patient on methylprednisolone 40 mg IV push daily, will reassess need daily #A-fib without RVR, on Eliquis Patient has a history of A-fib with RVR on Eliquis. The patient states that he does not know if he takes Eliquis or not. According to his medication list provided by the patient's , he does not have Eliquis listed. However, the patient does have multiple bruises on bilateral upper extremities reminiscent of easy bruising found in patients on Eliquis. EKG supports atrial fibrillation. CHADS-VASc score 4 (stroke risk 4.8% per year) HAS-BLED score 2 ? Started patient on Eliquis 5 mg twice daily, as noted in recommendations from previous hospitalization discharge summary 12/09/2024 ? Will continue to monitor patient's daily labs to identify potential bleeding #Primary hypertension Patient has a history of hypertension. Patient takes lisinopril 20 mg daily and metoprolol 100 mg twice daily at home and presented with blood pressure of 205/128 in the ED. ? Restart patient on home metoprolol 100 mg twice daily ? Resume patient on home lisinopril 20 mg daily ? Hydralazine 10 mg IV push every 6 hours as needed if systolic blood pressure over 180 ? Started the patient on nifedipine 30 mg daily #BPH Patient does not state that he has a history of BPH, however, the patient does take multiple medications that use for management of BPH. ? Will hold patient's home Flomax, Avodart, and tamsulosin for now ? Ordered Turner catheter insertion #PTSD #Anxiety Patient endorses a history of PTSD due to serving in the [employer]. 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 He endorses nightmares and notes that he feels very anxious when he does not have his BiPAP on. This also applies to his fear of needles, making blood draws difficult. ? Started patient on prazosin 1 mg at night and sertraline 25 mg twice daily ? Can increase sertraline dose by 25 to 50 mg every 3 to 4 weeks until symptom improvement obtained, max dose 250 mg a day ? Notified patient on importance of blood draws while patient is in the hospital undergoing diuresis DVT Prophylaxis: Eliquis GI Prophylaxis: N/A Bowel: Senokot Diet: Cardiac, fluid restriction 1500 cc Turner: Yes Lines: Peripheral IV Antibiotics: Ceftriaxone & Azithromycin (03/17--) Code Status: FULL Reason for Hospitalization: Acute hypoxic respiratory failure Other Barriers to Discharge: N/A Patient plan of care was discussed with the senior resident Dr. Bertrand (PGY-2) and attending physician Dr. Lara. Khoa Luna, PGY1
[2025-03-19] MEDS: SERTRALINE HCL 25 MG TABLET PO ×2 (12:32→21:19)
[2025-03-19] MEDS: NIFEdipine XL 30 MG TABCR PO (12:32)
[2025-03-19 12:35] LABS: Basophils # (Auto) 0.0 Thou/mm3 (0.0-0.2); Basophils % (Auto) 0 % (0-2.5); Eosinophils # (Auto) 0.0 Thou/mm3 (0.0-0.5); Eosinophils % (Auto) 0 % (0-10); Hematocrit 48.7 % (41.0-53.0); Hemoglobin 15.5 g/dL (13.5-16.0); Immature Granulocytes Auto 0.16 Thou/mm3 (0.00-0.00); Lymphocytes # (Auto) 1.0 Thou/mm3 (1.0-4.8); Lymphocytes % (Auto) 7 % (10-50); Mean Corpuscular HGB Conc 31.8 g/dl (31.0-37.0); Mean Corpuscular Hemoglobin 30.1 pg (25.0-35.0); Mean Corpuscular Volume 95 fL (80-100); Monocytes # (Auto) 1.2 Thou/mm3 (0.0-0.8); Monocytes % (Auto) 8 % (0-12); Neutrophils # (Auto) 12.8 Thou/mm3 (1.8-7.7); Neutrophils % (Auto) 84 % (37-80); Nucleated Red Blood Cell # 0.00 Thou/mm3 (0.00-0.00); Nucleated Red Blood Cell % 0 /100 WBC (0); Platelet Count 214 Thou/mm3 (140-440); RDW Standard Deviation 50.8 fL (35.1-43.9); Red Blood Count 5.15 Miln/mm3 (4.50-5.90); White Blood Count 15.2 Thou/mm3 (3.8-10.6)
[2025-03-19 13:13] LABS: Alanine Aminotransferase 11 U/L (10-49); Albumin, Serum 4.2 gm/dL (3.4-4.8); Albumin/Globulin Ratio 1.9 (1.2-2.2); Alkaline Phosphatase 54 U/L (46-116); Anion Gap 10 (7-16); Aspartate Amino Transferase 20 U/L (0-34); BUN/Creatinine Ratio 29 Ratio (12-20); Bilirubin,Total 0.7 mg/dL (0.3-1.2); Blood Urea Nitrogen 23 mg/dL (9-23); Calcium 9.6 mg/dL (8.3-10.6); Calcium (Corrected) 9.6 mg/dL (8.5-10.1); Carbon Dioxide 30.5 mMol/L (20.0-31.0); Chloride 101 mMol/L (98-107); Creatinine (Component) 0.8 mg/dL (0.6-1.3); Estimated Creatinine Clearance 111.5 mL/min (>60); Globulin 2.2 gm/dL (2.3-3.5); Glucose 151 mg/dL (74-106); Magnesium 1.7 mg/dL (1.6-2.6); Osmolality,Calculated 287 (275-295); Phosphorous 2.4 mg/dL (2.4-5.1); Potassium 3.3 mMol/L (3.4-5.1); Sodium 141 mMol/L (136-145); Total Protein 6.4 gm/dL (5.7-8.2); eGFR > 60 See Note
[2025-03-19] MEDS: POTASSIUM CHL 10 mEq IVPB 10 MEQ/100 ML BAG 100 MEQ IV (14:11)
[2025-03-19] MEDS: Magnesium Sulfate 4 GM Ivpb 4 GM/50 ML BAG IV (14:13)
[2025-03-19] MEDS: PRAZOSIN HCL 1 MG CAPSULE PO (21:18)
--- NOTE | 2025-03-19 21:42 | PC.NURSE ---
Pt has no IV since start of shift. HORACE Heath and HORACE Vu attempted to put an IV to no success. HORACE Vu contacted charge nurse down in ICU to come do an IV, but she CN said she will do it when she is done with her admit. Pt was getting angry when HORACE Vu attempted to continue to search for a site to place the IV.
[2025-03-20] VITALS (15 sets, daily range): BP systolic 147–164; BP diastolic 95–105; PULSE 68–94; RESP 12–28; TEMP 36.4–37.2; O2SAT 93–100
[2025-03-20] MEDS: oxyCODONE HCL 5 MG IR TAB PO ×2 (00:50→05:37)
[2025-03-20] MEDS: ALBUTEROL/IPRATROPIUM (Duoneb) RT SOL 3 ML NEBU INH ×4 (03:35→14:51)
--- NOTE | 2025-03-20 05:27 | PC.NURSE ---
Addendum entered by Kumar Winston RN 03/20/25 05:42: oxycodone IR 5mg administered. Addendum entered by Kumar Winston RN 03/20/25 05:29: Oxycodone IR 5mg Addendum entered by Kumar Winston RN 03/20/25 05:29: Dr. Beatty to order 1x dose of oxycodone. Original Note: Pt complaining of back pain 04/16. Pt next dose of oxycodone is at 0650. Pt cannot get dilaudid due to no IV access. RN will call hospitalists.
[2025-03-20 05:39] LABS: Basophils # (Auto) 0.0 Thou/mm3 (0.0-0.2); Basophils % (Auto) 0 % (0-2.5); Eosinophils # (Auto) 0.0 Thou/mm3 (0.0-0.5); Eosinophils % (Auto) 0 % (0-10); Hematocrit 46.9 % (41.0-53.0); Hemoglobin 14.9 g/dL (13.5-16.0); Immature Granulocytes Auto 0.13 Thou/mm3 (0.00-0.00); Lymphocytes # (Auto) 1.8 Thou/mm3 (1.0-4.8); Lymphocytes % (Auto) 16 % (10-50); Mean Corpuscular HGB Conc 31.8 g/dl (31.0-37.0); Mean Corpuscular Hemoglobin 30.0 pg (25.0-35.0); Mean Corpuscular Volume 94 fL (80-100); Monocytes # (Auto) 1.5 Thou/mm3 (0.0-0.8); Monocytes % (Auto) 14 % (0-12); Neutrophils # (Auto) 7.7 Thou/mm3 (1.8-7.7); Neutrophils % (Auto) 69 % (37-80); Nucleated Red Blood Cell # 0.00 Thou/mm3 (0.00-0.00); Nucleated Red Blood Cell % 0 /100 WBC (0); Platelet Count 193 Thou/mm3 (140-440); RDW Standard Deviation 49.2 fL (35.1-43.9); Red Blood Count 4.97 Miln/mm3 (4.50-5.90); White Blood Count 11.2 Thou/mm3 (3.8-10.6)
[2025-03-20 06:25] LABS: Alanine Aminotransferase 9 U/L (10-49); Albumin, Serum 4.3 gm/dL (3.4-4.8); Albumin/Globulin Ratio 2.0 (1.2-2.2); Alkaline Phosphatase 50 U/L (46-116); Anion Gap 11 (7-16); Aspartate Amino Transferase 22 U/L (0-34); BUN/Creatinine Ratio 26 Ratio (12-20); Bilirubin,Total 1.0 mg/dL (0.3-1.2); Blood Urea Nitrogen 18 mg/dL (9-23); Calcium 9.4 mg/dL (8.3-10.6); Calcium (Corrected) 9.4 mg/dL (8.5-10.1); Carbon Dioxide 29.5 mMol/L (20.0-31.0); Chloride 102 mMol/L (98-107); Creatinine (Component) 0.7 mg/dL (0.6-1.3); Estimated Creatinine Clearance 126.8 mL/min (>60); Globulin 2.1 gm/dL (2.3-3.5); Glucose 106 mg/dL (74-106); Magnesium 2.4 mg/dL (1.6-2.6); Osmolality,Calculated 285 (275-295); Phosphorous 2.1 mg/dL (2.4-5.1); Potassium 3.4 mMol/L (3.4-5.1); Sodium 142 mMol/L (136-145); Total Protein 6.4 gm/dL (5.7-8.2); eGFR > 60 See Note
[2025-03-20] MEDS: METOPROLOL TARTRATE 25 MG TABLET 100 MG PO (08:01)
[2025-03-20] MEDS: SERTRALINE HCL 25 MG TABLET PO (08:01)
[2025-03-20] MEDS: APIXABAN 2.5 MG TABLET 5 MG PO (08:01)
[2025-03-20] MEDS: ACETAMINOPHEN 325 MG TABLET 650 MG PO (08:01)
[2025-03-20] MEDS: NIFEdipine XL 30 MG TABCR PO (08:02)
[2025-03-20] MEDS: NAPH,KPH MBDB 1 PACKET (1.5 GM) 2 PACKET PO (09:22)
--- NOTE | 2025-03-20 12:46 | PC.SS ---
Addendum entered by Lida Isbell 03/20/25 14:26: SS has informed [facility] 4pm. SS has also informed Purvi from [facility]. Original Note: SS has spoken to Rachel from [place] [phone] who states [facility] will provide transportation home at 4pm and are aware pt will require 2 liters of O2 during transportation.
--- NOTE | 2025-03-20 13:37 | ESDS_ITS ---
<Statement entered by Sigifredo Lara MD - 04/04/25 15:04> I reviewed above note and agree with findings and plans. I have also personally examined the patient with medicine team and went over assessment and plan with medical team including quality internship and resident physician. <Statement entered by Thom Bertrand MD - 03/21/25 05:38> Patient was seen and examined by me personally. I have reviewed the below documentation by the team resident and agree with its findings. Discharge plan was discussed with the attending, Dr. Lara 79-year-old male with past medical history as below, admitted for acute decompensated heart failure, COPD exacerbation and pneumonia. Patient was started on Lasix 40 mg twice daily, was diuresed aggressively patient net -5.8 L for the hospitalizations, had 12.7 L urine output, patient follows up with Dr. Dc pole sander operator outpatient, informed to follow-up with cardiology within 2 to 3 days of discharge. For pneumonia patient received IV antibiotics, will be discharged on cefpodoxime to complete treatment. Nifedipine started for blood pressure management additional to metoprolol tartrate, lisinopril dose increased on discharge. Prazosin 1 mg started for nightmares, to be titrated by primary care physician to therapeutic dose, started on Zoloft 50 mg daily will be uptitrated by PCP for therapeutic dose for underlying PTSD/anxiety/depression. Patient should be referred for psychiatry outpatient. Patient to be discharged home with hospice per patient's request. Patient is stable for discharge. Thom Bertrand MD Internal Medicine, PGY-2 Planned Discharge Date 03/20/25 DS: Providers Provider Date of admission: 03/17/25 11:12 Primary care physician: Usman Wakefield Admitting Provider: Sigifredo Lara MD Attending Provider on Admission: Sigifredo Lara MD Consults: 03/17/25 20:32 Referral Respiratory Therapy Routine Comment: 03/18/25 08:00 Referral Infection Control Routine Comment: Reason for Infection Control Referral: Readmitted within 30 days 03/18/25 09:46 Referral Hospice Urgent Comment: Attending Provider on DC: Sigifredo Lara MD Discharging Provider: Sigifredo Lara MD Anticipated date of discharge: 03/20/25 DS: Diagnosis Problem List Completed Was Problem List Reviewed/Reconciled?: Yes Hospital Course Hospital Course Hospital course: Hospital course: Mr. Ivy is a 79-year-old male with past medical history of A- fib on Eliquis, hypertension, COPD, BPH, asthma, and bilateral lower extremity neuropathy who presented to [facility] ED on 03/17 due to worsening shortness of breath. On presentation patient was found to be significantly swollen and edematous, chest x-ray done in ED showed mild heart failure, significant right base pneumonia, wheezing was noted bilaterally. Patient admitted to the hospital for acute decompensated heart failure, pneumonia management and COPD exacerbation management, patient was started on IV diuresis, IV antibiotics, breathing treatments and IV steroids, patient was initially on BiPAP from which patient was weaned off. Home medications were resumed for atrial fibrillation, anticoagulation was resumed. Hospital course was complicated by underlying PTSD/anxiety issues, patient was refusing blood draws and IV placement requesting referral to hospice. It was explained in detail to patient about indications of hospice however patient wanted to proceed with hospice. Patient's shortness of breath and breathing improved with the progression of hospital course, patient was started on sertraline and prazosin for PTSD, further plan is to discharge patient home on hospice, patient to complete antibiotic treatment with cefpodoxime, continue Lasix and follow-up with car diology outpatient. Patient to titrate PTSD medication outpatient. Patient is stable for discharge, responded well to hospital treatment. Discharge Recommendations: -Complete antibiotic treatment with cefpodoxime. -Take Lasix 40mg daily for Heart failure, follow up with Dr Dc pole sander operator outpatient -Use Nefedipine, lisinopril and metoprolol for Hypertension management, titrate medications for goal outpatient -Use prazosin and zoloft for PTSD, uptitrate prazosin and zoloft to achieve therapeutic range. -Follow up with PCP in 1 week -Return to ED if symptoms worsen Discharge Diagnosis: #Acute hypoxic respiratory failure, resolved #Acute decompensated heart failure #Heart failure with preserved ejection fraction, EF 55 to 60%, diastolic heart failure #Community-acquired pneumonia #Leukocytosis #COPD/asthma exacerbation #Asthma, by personal history #Atrial fibrillation rate controlled on Eliquis #Hypertension, primary #Benign prostate hypertrophy #Posttraumatic stress disorder #Anxiety Case discussed with Attending Physician Dr. Lara and senior resident Dr. Bertrand. Khoa Luna, DO Internal Medicine PGY-1 Disclaimer: This note was dictated by speech recognition. Minor errors in geometry professor may be present due to voice recognition software. Status at Discharge Overall status at discharge: patient is progressing back to baseline Time Spent with Patient Time attestation: Total time spent providing and/or coordinating discharge services: Time spent: Greater than 30 minutes Exam Vital Signs Temp Pulse Resp BP Pulse Ox O2 Del Method O2 Flow Rate 97.5 F 73 19 147/103 H 100 BiPAP 5 03/20/25 12:00 03/20/25 12:00 03/20/25 12:00 03/20/25 12:00 03/20/25 12:00 03/20/25 12:00 03/20/25 04:00 FiO2 35 03/20/25 10:44 Narrative Exam Physical Exam: General: Alert, no acute distress. Skin: Warm, dry, intact, no obvious rash. Head: Normocephalic, atraumatic. Eye: Normal conjunctiva, PERRL. Throat: Oral mucosa moist. No obvious lesions in oropharynx. Cardiovascular: Unable to auscultate due to body habitus. Respiratory: Respirations unlabored room air, no crackles, no wheezing noted. Gastrointestinal: Soft, nontender, non-distended. No guarding or rebound tenderness. Extremities: 1+ pitting edema in BLE, no cyanosis, no clubbing. 2+ radial pulse bilaterally. Multiple bruises found throughout BUE. Neuro: No focal deficits observed. Conversant, moving all extremities. No overt cerebellar signs/incoordination. Psychiatric: Cooperative, appropriate affect. Discharge Plan Plan Patient Disposition: Home w/HOME HEALTH Patient condition on transfer: Stable Care Plan Goals: -Complete antibiotic treatment with cefpodoxime. -Take Lasix 40mg daily for Heart failure, follow up with Dr Dc outpatient -Use Nefedipine, lisinopril and metoprolol for HTN -Use prazosin and zoloft for PTSD, titrate meds o/p with PCP -Follow up with PCP in 1 week -Return to ED if symptoms worsen Prescriptions/Referrals Prescriptions/Med Rec: New cefpodoxime 200 mg tablet 200 mg PO BID 7 Days Qty: 14 0RF Rx Instructions: must administer with a meal/food nifedipine 30 mg Tablet Extended Release 24hr 30 mg PO QDAY 30 Days Qty: 30 0RF prazosin 1 mg Capsule 1 mg PO HS 30 Days Qty: 30 0RF sertraline 50 mg tablet 50 mg PO QDAY 30 Days Qty: 30 0RF furosemide [Lasix] 40 mg tablet 40 mg PO QDAY Qty: 30 0RF Continued metoprolol tartrate 100 mg Tablet 100 mg PO BID Breztri Aerosphere 160-9-4.8 mcg/actuation HFA aerosol inhaler 2 inh inhalation BID Eliquis 2.5 mg Tablet 5 mg PO BID Qty: 30 0RF Changed lisinopril 20 mg Tablet 40 mg PO QDAY 30 Days Qty: 60 0RF Discontinued cefdinir 300 mg capsule 300 mg PO BID Qty: 14 0RF amlodipine 10 mg tablet 10 mg PO QDAY Qty: 30 0RF Referrals: Usman Moreira [Primary Care Provider] - Patient/Caregiver Discharge Instructions Discharge Activity: activity as tolerated Education Materials: Heart Failure Print Language: Cook Islander Stand Alone Forms: Lisseth Award Info., Patient Portal Info Letter Discharge Order Discharge Orders: Discharge (Routine); Ordered 03/20/25 Ordered By: Thom Bertrand Quality Discharge Quality Measures comfort care/end of life
[2025-03-20 15:13] LABS: Glucose Estimated Average 103 mg/dL (80-131); Hemoglobin A1C 5.2 % Hgb (4.8-6.0)
== END 2025-03-20 16:40 | disposition hospice, home (50) | DRG 193 ==
LOC: SERX 10:14 → SERHOLD 12:09 → S3SX 19:57
PROVIDERS: Admitting Provider Internal Medicine; Emergency Provider Family Medicine; PCP Physician Assistant; Visit Provider Internal Medicine
DX: J18.9 Pneumonia, unspecified organism (principal); J96.01 Acute respiratory failure with hypoxia; I48.19 Other persistent atrial fibrillation; J44.0 Chronic obstructive pulmonary disease with (acute) lower respiratory infection; I50.32 Chronic diastolic (congestive) heart failure; J44.1 Chronic obstructive pulmonary disease with (acute) exacerbation; I11.0 Hypertensive heart disease with heart failure; F32.A Depression, unspecified; F41.9 Anxiety disorder, unspecified; K59.00 Constipation, unspecified; N40.0 Benign prostatic hyperplasia without lower urinary tract symptoms; Z79.01 Long term (current) use of anticoagulants; Z79.899 Other long term (current) drug therapy; F43.10 Post-traumatic stress disorder, unspecified
CPT/HCPCS: 36415; 36600; 71045; 80053; 80061; 82803; 83036; 83540; 83550; 83735; 83880; 84100; 84145; 84484; 85025; 85610; 85730; 87040; 87081; 87205; 87502; 87811; 93005; 93225; 94640; 94644; 94660; 96365; 96366; 96375; 96376; 99284; A4314; A9270; J0360; J0456; J0696; J1171; J1938; J2270; J2919; J3475; J3480; J3490; J7050